=== PATIENT | female | born 1970 | race Caucasian/White ===

== ENCOUNTER 2020-06-17 09:08 | Emergency (ER) | payer SELFPAY ==
--- NOTE | ~2020-06-17 | XR_ITS ---
EXAMINATION: XR finger 3rd LT min 2V INDICATION: Left third finger pain TECHNIQUE: Four views of the left third finger are obtained COMPARISON: None available FINDINGS: There is no fracture, dislocation, or subluxation. The bones and joint spaces are normal. T here is soft tissue swelling of the finger. IMPRESSION: 1. Soft tissue swelling without acute osseous abnormality. Reviewed, dictated and finalized at location B.
[2020-06-17 09:50] VITALS: BP 166/91; PULSE 74; RESP 18; TEMP 38.1; O2SAT 99
--- NOTE | 2020-06-17 10:03 | ED.UPPEXIN ---
HPI - Extremity Injury (Upper) General Chief Complaint: Extremity Injury, Upper Stated Complaint: Extremity Injury, Upper Time Seen by Provider: 06/17/20 10:04 Source: patient and RN notes reviewed History of Present Illness HPI narrative: Patient is a 49-year-old female who presents the urgent care with complaints of swelling and bruising to the left middle finger. Patient states that she was trying to grab on a dog collar of a large lab, and got her finger stuck in a braided leather collar. Patient states that she is watching a friend's dog. Denies of any other injuries. Denies any dog bites. States that it happened just prior to arrival and she did not take anything for pain or use ice. No other acute complaints. Patient appears to be a little anxious but otherwise no acute distress noted. Patient aware of the plan of care. Some parts of this dictation were generated by voice recognition software and may contain typographical and/or grammatical inaccuracies. Related Data Home Medications Medication Instructions Recorded Confirmed albuterol sulfate INHALATION 06/17/20 buspirone mg 06/17/20 citalopram mg 06/17/20 Allergies Allergy/AdvReac Type Severity Reaction Status Date / Time iodine Allergy Unknown Hives Verified 06/17/20 09:29 lamotrigine Allergy Unknown Rash Verified 06/17/20 09:29 shellfish derived Allergy Unknown Anaphylactic Verified 06/17/20 09:29 Shock Contrast Media Allergy Mild Hives / Uncoded 06/17/20 09:29 Red Face Review of Systems Review of Systems: Narrative: CONSTITUTIONAL: Denies fever, chills, or sweats. EYES: Denies visual changes, redness, or discharge. ENT: Denies rhinorrhea, congestion, sore throat, or otalgia. CARDIOVASCULAR: Denies chest pain, palpitations, or edema. RESPIRATORY: Denies cough or dyspnea. GASTROINTESTINAL: Denies abdominal pain, nausea, vomiting, or diarrhea. GENITOURINARY: Denies dysuria or hematuria. SKIN: Denies rash or itching. MUSCULOSKELETAL: Reports of painful bruising and swelling to the left middle digit NEUROLOGIC: Denies headache, numbness, or weakness. All other systems reviewed are negative, except as documented in HPI. [facility] Family History Family History (Updated 05/09/17 @ 16:42 by DOCTOR UNKNOWN) Father Diabetes mellitus Mother Family history of lung cancer Social History Social History Smoking status: Current every day smoker Alcohol intake: current Comments At the time of my signature, I reviewed and agree with the nursing past medical, surgical, social, and family history. There is no relevant family history pertinent to the patient complaint. Exam Narrative: Exam Narrative: GENERAL: This is a well-nourished, well-developed patient, in no apparent distress. HEAD: normocephalic, atraumatic. EYES: PERRL. Sclera clear/white. Vision is grossly intact. EARS: External ears normal NOSE: External nose normal with no obvious nasal discharge, nares without redness, no rhinorrhea. THROAT: Mucous membranes moist NECK: Neck supple SKIN: See extremities. Warm, intact with no suspicious lesions or rash, good texture and turgor. NEURO: awake, alert, and oriented to person, place and time. There were no obvious focal neurologic abnormalities. EXTREMITIES: Moderate edema and ecchymosis noted between the MCP and the PIP of the left middle digit. Moderate tenderness to the affected area. Positive strong radial pulse left upper extremity with capillary refill less than 2 seconds Course Vital Signs Vital signs: Vital Signs Temperature 100.5 F H 06/17/20 09:50 Pulse Rate 74 06/17/20 09:50 Respiratory Rate 18 06/17/20 09:50 Blood Pressure 166/91 H 06/17/20 09:50 Pulse Oximetry 99 06/17/20 09:50 Temperature 100.5 F H 06/17/20 09:50 Pulse Rate 74 06/17/20 09:50 Respiratory Rate 18 06/17/20 09:50 Blood Pressure 166/91 H 06/17/20 09:50 Pulse Oximetry 99 06/17/20 09:50 Reviewed-patient is informed that
== END 2020-06-17 10:25 | disposition home or self-care (01) ==
PROVIDERS: Emergency Provider Nurse Practitioner Family; PCP Internal Medicine
DX: S69.92XA Unspecified injury of left wrist, hand and finger(s), initial encounter (principal); X58.XXXA Exposure to other specified factors, initial encounter; F17.200 Nicotine dependence, unspecified, uncomplicated; J45.909 Unspecified asthma, uncomplicated; K21.9 Gastro-esophageal reflux disease without esophagitis; F41.9 Anxiety disorder, unspecified; F32.9 Major depressive disorder, single episode, unspecified; E28.2 Polycystic ovarian syndrome
CPT/HCPCS: 29130; 73140; 99213; G0463

== ENCOUNTER 2021-01-31 09:29 | Emergency (ER) | payer OTHER, SELFPAY ==
[2021-01-31 09:36] VITALS: BP 157/92; PULSE 89; RESP 18; TEMP 36.4; O2SAT 96
--- NOTE | 2021-01-31 11:15 | ED.URI ---
HPI - URI/Sore Throat General Chief Complaint: Upper Respiratory Infection Stated Complaint: Sinus infection Time Seen by Provider: 01/31/21 11:04 Source: patient and RN notes reviewed Mode of arrival: ambulatory Limitations: no limitations History of Present Illness HPI Narrative: Patient presents today complaining of a 5-day history of sinus pressure, bilateral ear pressure, subjective fever. States her sinus pressure is such that her teeth are hurting severely. Last night when she was blowing her nose she felt a severe popping in her left ear and now she hears a whistling or gurgling sound when she blows her nose. She has been taking Sudafed, DayQuil, NyQuil, [place] cold and flu without relief. History of allergy induced asthma MD elicited complaint: nasal congestion and sinus pain Related Data Home Medications Medication Instructions Recorded Confirmed buspirone mg 06/17/20 citalopram mg 06/17/20 losartan-hydrochlorothiazide tablet 01/31/21 Allergies Allergy/AdvReac Type Severity Reaction Status Date / Time iodine Allergy Unknown Hives Verified 06/17/20 09:29 lamotrigine Allergy Unknown Rash Verified 06/17/20 09:29 shellfish derived Allergy Unknown Anaphylactic Verified 06/17/20 09:29 Shock Contrast Media Allergy Mild Hives / Uncoded 06/17/20 09:29 Red Face Review of Systems Review of Systems: CONSTITUTIONAL: Denies body aches, chills, or sweats.+ Subjective fever EYES: Denies visual changes, redness, or discharge. ENT: Denies rhinorrhea, sore throat. + Bilateral ear pressure, left greater than right; congestion, sinus pressure CARDIOVASCULAR: Denies chest pain, palpitations, or edema. RESPIRATORY: Denies cough or dyspnea. GASTROINTESTINAL: Denies abdominal pain, nausea, vomiting, or diarrhea. GENITOURINARY: Denies dysuria or hematuria. SKIN: Denies rash, itching, or wounds. MUSCULOSKELETAL: Denies back pain, joint pain, or myalgia. NEUROLOGIC: Denies headache, numbness, tingling, or weakness. PSYCH: Denies depression or anxiety. 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 Please see nursing chart for further information. There is no relevant family history pertinent to the presenting complaint Exam Narrative: GENERAL: Ill-appearing, well-nourished, and in no acute distress. HEAD: Normocephalic, atraumatic. EYES: EOMI. No redness or drainage. Conjunctivae normal. ENT: Mucous membranes pink and moist. Nares congested. Maxillary sinus tenderness bilaterally. No rhinorrhea. Right TM normal. Left TM erythematous and bulging with purulent material. Throat normal. Uvula midline. NECK: Normal AROM. Supple. No lymphadenopathy. CHEST: No respiratory distress. End expiratory wheeze left upper and lower lobes. HEART: Regular rate and rhythm. No murmur appreciated. Normal peripheral pulses. EXTREMITIES: Normal range of motion. No edema. SKIN: Warm, dry, no rash. Capillary refill normal. Normal skin turgor. NEURO: No focal deficits. Alert and oriented x3. Gait steady. PSYCH: Normal affect. No signs of depression or anxiety. Course Vital Signs Vital signs: Vital Signs Temperature 97.6 F 01/31/21 09:36 Pulse Rate 89 01/31/21 09:36 Respiratory Rate 18 01/31/21 09:36 Blood Pressure 157/92 H 01/31/21 09:36 Pulse Oximetry 96 01/31/21 09:36 Temperature 97.6 F 01/31/21 09:36 Pulse Rate 89 01/31/21 09:36 Respiratory Rate 18 01/31/21 09:36 Blood Pressure 157/92 H 01/31/21 09:36 Pulse Oximetry 96 01/05
== END 2021-01-31 11:36 | disposition home or self-care (01) ==
PROVIDERS: Emergency Provider Nurse Practitioner; PCP Internal Medicine
DX: H66.002 Acute suppurative otitis media without spontaneous rupture of ear drum, left ear (principal); J01.00 Acute maxillary sinusitis, unspecified; J45.909 Unspecified asthma, uncomplicated; F17.200 Nicotine dependence, unspecified, uncomplicated
CPT/HCPCS: 99213; G0463

== ENCOUNTER 2022-09-20 19:07 | Emergency (ER) | payer OTHER, SELFPAY ==
--- NOTE | 2022-09-20 19:10 | ED.FEMALEGU ---
HPI - Female Genitourinary General Chief complaint: Urogenital-Female Stated complaint: Urinary Problem Time Seen by Provider: 09/20/22 19:26 Source: patient and RN notes reviewed Mode of arrival: ambulatory Limitations: no limitations History of Present Illness HPI Narrative: 51-year-old female presents with concern for dysuria, urinary incontinence, fever, chills, sweats. She reports she has taken Tylenol. She denies back pain. Reports suprapubic discomfort. Denies nausea or vomiting. MD elicited complaint: UTI Related Data Home Medications Medication Instructions Recorded Confirmed citalopram 40 mg tablet mg 06/17/20 losartan 50 mg-hydrochlorothiazide tablet 01/31/21 12.5 mg tablet celecoxib 200 mg capsule mg 09/20/22 hydrocodone 5 mg-acetaminophen 325 tablet 09/20/22 mg tablet pregabalin 75 mg capsule mg 09/20/22 Allergies Allergy/AdvReac Type Severity Reaction Status Date / Time iodine Allergy Unknown Hives Verified 06/17/20 09:29 lamotrigine Allergy Unknown Rash Verified 06/17/20 09:29 shellfish derived Allergy Unknown Anaphylactic Verified 06/17/20 09:29 Shock Contrast Media Allergy Mild Hives / Uncoded 06/17/20 09:29 Red Face Review of Systems Review of Systems: CONSTITUTIONAL: Reports malaise, chills, sweats, fever. CARDIOVASCULAR: Denies chest pain, palpitations, or edema. RESPIRATORY: Denies cough or dyspnea. GASTROINTESTINAL: Denies abdominal pain, nausea, vomiting, diarrhea GENITOURINARY: Reports dysuria, suprapubic pressure. Denies flank pain or hematuria. SKIN: Denies rash or itching. MUSCULOSKELETAL: Denies back pain or myalgia. All systems reviewed & are unremarkable except as noted in HPI and below PMFSH Past Medical History Medical History (Updated 09/20/22 @ 19:31 by Mariana Buck NP) Asthma Family History Family History (Updated 05/09/17 @ 16:42 by DOCTOR UNKNOWN) Father Diabetes mellitus Mother Family history of lung cancer Social History Social History Smoking status: Current every day smoker Alcohol intake: current Comments At time of signature, agree with nursing past medical, surgical, social and family history. There is no relevant family history pertinent to the presenting complaint Exam Narrative: GENERAL: Well-appearing, well-nourished, and in no acute distress. HEAD: Normocephalic. EYES: PERRLA, conjunctivae clear. NECK: Supple. No lymphadenopathy CHEST: Clear to auscultation. No respiratory distress. HEART: Regular rate and rhythm. ABDOMEN: Soft, mild suprapubic tenderness, nondistended, normal active bowel sounds, no palpable or pulsatile masses, no guarding. Right cVA tenderness SKIN: Warm, dry, no rash. NEURO: Alert and oriented x3. PSYCH: Normal mood and affect Course Course Emergency Course: Patient is aware of diagnosis, understands and agrees to treatment plan. Anticipatory guidance given. Patient agrees to follow-up as directed and is aware of reasons to seek care at the emergency department. Portions of this record may have been created with voice recognition software Level of Care: Express Care Visit Vital Signs Vital signs: Reviewed. MDM - Female Genitourinary MDM Narrative Medical decision making narrative: Exam findings and UA show no acute concerns or changes; patient is non-toxic appearing and is in no distress. Patient is appropriate for outpatient treatment and follow-up. Differential Diagnosis Differential diagnosis: Likely urinary tract infection and cystitis Critical Care Time Critical Care Time Critical Care Time: No Discharge Plan Discharge Clinical Impression: Urinary tract infection Patient Disposition: Home, Self-Care Condition: Stable Instructions: Antibiotic Form, Urinary Tract Infection in Women (ED) Additional Instructions: We will send a urine culture to the lab; if the culture identifies an organism that the prescribed antibiotic will not treat,
[2022-09-20 19:15] VITALS: BP 136/99; PULSE 90; RESP 18; TEMP 36.7; O2SAT 97
== END 2022-09-20 19:37 | disposition home or self-care (01) ==
PROVIDERS: Emergency Provider Nurse Practitioner; PCP Internal Medicine
DX: N39.0 Urinary tract infection, site not specified (principal); J45.909 Unspecified asthma, uncomplicated
CPT/HCPCS: 81003; 87077; 87086; 87186; 99213; G0463

== ENCOUNTER 2023-06-07 13:10 | Emergency (ER) | payer OTHER, SELFPAY ==
--- NOTE | ~2023-06-07 | XR_ITS ---
EXAMINATION: XR finger 2nd LT min 2V DATE: 06/07/2023 13:47 INDICATION: Left hand second digit injury and pain and swelling. TECHNIQUE: 4 views of left hand second digit were obtained. COMPARISON: None. FINDINGS: Bone alignment is normal. No fracture. Joint spaces are normal. IMPRESSION: 1. No fracture. Reviewed, dictated and finalized at location A. IMPRESSION: 1. No fracture.
[2023-06-07 13:20] VITALS: BP 140/91; PULSE 91; RESP 16; TEMP 37.5; O2SAT 100
--- NOTE | 2023-06-07 13:22 | ED.UPPEXIN ---
HPI - Extremity Injury (Upper) General Chief Complaint: Extremity Injury, Upper Stated Complaint: Left Hand Injury Source: patient Mode of arrival: ambulatory Limitations: no limitations History of Present Illness HPI narrative: 52 y/o female presented for c/o left index finger pain after injury today at work. States it was smashed in a machine then pulled the finger out at 0930. Applied ice but continues to report pain and swelling, decreased ROM due to pain. Has not taken anything for pain. Denies deformity. Related Data Home Medications Medication Instructions Recorded Confirmed citalopram 40 mg tablet 40 mg PO DAILY 06/17/20 06/07/23 bupropion HCl 150 mg 24 hr tablet, 150 mg PO DAILY 06/07/23 06/07/23 extended release losartan 100 1 tablet PO DAILY 06/07/23 06/07/23 mg-hydrochlorothiazide 12.5 mg tablet pregabalin 150 mg capsule 150 mg PO BID 06/07/23 06/07/23 spironolactone 25 mg tablet 25 mg PO DAILY 06/07/23 06/07/23 Allergies Allergy/AdvReac Type Severity Reaction Status Date / Time iodine Allergy Unknown Hives Verified 06/07/23 13:40 iohexol Allergy Unknown Rash Verified 06/07/23 13:46 [From contrast - CT, X-RAY] lamotrigine Allergy Unknown Rash Verified 06/07/23 13:40 shellfish derived Allergy Unknown Anaphylactic Verified 06/07/23 13:40 Shock Review of Systems Review of Systems: CONSTITUTIONAL: Denies body aches, fever, chills CARDIOVASCULAR: Denies chest pain, palpitations, or edema. RESPIRATORY: Denies cough or dyspnea. SKIN: reports abrasion to left index MUSCULOSKELETAL: reports pain and swelling to left index Denies back pain, joint pain, or myalgia. NEUROLOGIC: Denies headache, numbness, tingling, or weakness. All systems reviewed & are unremarkable except as noted in HPI and below PMFSH Past Medical History Medical History Asthma Family History Family History Father Diabetes mellitus Mother Family history of lung cancer Social History Social History Smoking status: Current every day smoker Alcohol intake: current Comments At time of signature, I have reviewed and agree with nursing past medical, surgical, social and family history unless otherwise noted. Please see nursing chart for further information. There is no relevant family history pertinent to the presenting complaint Exam Narrative: GENERAL: Well-appearing CHEST: Speaks in full sentences. No respiratory distress. HEART: Regular rate and rhythm. Normal and equal peripheral pulses. EXTREMITIES: Left 3rd digit distal phalanx with superficial abrasion no nail involvement. Left 2nd digit with moderate swelling and decreased ROM due to swelling. Distal phalanx with superficial abrasions. 2nd digit has normal strength and sensation, No ecchymosis, No obvious deformity; pulse palpable and equal bilaterally, skin warm, dry, pink. Capillary refill less than 3 seconds. Involuntary tremor. SKIN: Warm, dry NEURO: Alert and oriented x3. PSYCH: Normal mood and affect Course Course Emergency Course: Patient is aware of diagnosis, understands and agrees to treatment plan. Anticipatory guidance given. Patient agrees to follow-up as directed and is aware of reasons to seek care at the emergency department. Portions of this record may have been created with voice recognition software Level of Care: Express Care Visit Vital Signs Vital signs: Vital Signs Temperature 99.5 F 06/07/23 13:20 Pulse Rate 91 06/07/23 13:20 Respiratory Rate 16 06/07/23 13:20 Blood Pressure 140/91 H 06/07/23 13:20 Pulse Oximetry 100 06/07/23 13:20 Oxygen Delivery Room Air 06/07/23 13:20 Temperature 99.5 F 06/07/23 13:20 Pulse Rate 91 06/07/23 13:20 Respiratory Rate 16 06/07/23 13:20 Blood Pressure 140/91 H 06/07/23 13:20
== END 2023-06-07 14:15 | disposition home or self-care (01) ==
PROVIDERS: Emergency Provider Nurse Practitioner Family; PCP Internal Medicine
DX: S63.611A Unspecified sprain of left index finger, initial encounter (principal); W31.9XXA Contact with unspecified machinery, initial encounter; J45.909 Unspecified asthma, uncomplicated; F17.200 Nicotine dependence, unspecified, uncomplicated
CPT/HCPCS: 29130; 73140; 99213; G0463

== ENCOUNTER 2023-06-15 12:56 | Emergency (ER) | payer OTHER, SELFPAY ==
--- NOTE | 2023-06-15 13:05 | ED.GENADULT ---
HPI - General Adult General Chief complaint: Upper Respiratory Infection Stated complaint: sob Source: patient, RN notes reviewed and old records reviewed Mode of arrival: ambulatory Limitations: no limitations History of Present Illness HPI narrative: 52-year-old female presents to [facility] with complaints cough, shortness of breath, congestion, wheezing that started 4-5 days ago. Patient states has a history of asthma and has been using her albuterol inhaler at home daily with no relief. Patient denies taking other medications for asthma. Patient denies feeling sick, fever, myalgia, sore throat. Related Data Home Medications Medication Instructions Recorded Confirmed citalopram 40 mg tablet 40 mg PO DAILY 06/17/20 06/15/23 bupropion HCl 150 mg 24 hr tablet, 150 mg PO DAILY 06/07/23 06/15/23 extended release losartan 100 1 tablet PO DAILY 06/07/23 06/15/23 mg-hydrochlorothiazide 12.5 mg tablet pregabalin 150 mg capsule 150 mg PO BID 06/07/23 06/15/23 spironolactone 25 mg tablet 25 mg PO DAILY 06/07/23 06/15/23 Allergies Allergy/AdvReac Type Severity Reaction Status Date / Time iodine Allergy Unknown Hives Verified 06/15/23 13:40 iohexol Allergy Unknown Rash Verified 06/15/23 13:40 [From contrast - CT, X-RAY] lamotrigine Allergy Unknown Rash Verified 06/15/23 13:40 shellfish derived Allergy Unknown Anaphylactic Verified 06/15/23 13:40 Shock Review of Systems Constitutional: Constitutional: Reports no additional constitutional complaints, Denies body ache(s), Denies chills, Denies fatigue, Denies fever(s) and Denies headache(s) Eyes: Eyes: Reports no additional eye complaints and Denies blurry vision ENT: Reports system reviewed and no additional complaints, except as documented, Denies vertigo, Denies dizziness, Denies ear discharge, Denies otalgia, Denies facial pain, Denies headache(s), Denies nasal congestion, Reports nasal discharge, Reports post nasal drip, Denies sinus pain, Denies sinus pressure and Denies sore throat Cardiovascular: Cardiovascular: Reports no additional cardiovascular complaints, Denies chest pain, Denies chest pain at rest, Denies rapid heart rate and Reports dyspnea Respiratory: Respiratory: Reports no additional respiratory complaints, Denies chest congestion, Reports cough, Denies pain on inspiration, Denies pain with cough, Reports dyspnea and Reports wheezing Gastrointestinal: Gastrointestinal: Denies abdominal pain, Denies diarrhea, Denies nausea and Denies vomiting Integumentary/Breasts: Skin/Breast: Denies rash Neurologic: Reports system reviewed and no additional complaints, except as documented, Denies vertigo, Denies dizziness and Denies headache(s) Endocrine: Endocrine: Denies fatigue PMFSH Past Medical History Medical History Asthma Family History Family History Father Diabetes mellitus Mother Family history of lung cancer Social History Social History Smoking status: Current every day smoker Alcohol intake: current Comments At the time of my signature, I reviewed and agree with the nursing past medical, surgical, social, and family history. There is no relevant family history pertinent to the patient complaint. Exam Const: General: cooperative, healthy appearing, no acute distress and well nourished Nutritional Appearance: well nourished Orientation/consciousness: patient oriented x3 Limitations: no limitations HENMT: Head: normal to inspection and normocephalic Ears: external ears normal Face/Nose/Sinus: normal facial exam Face and sinus: normal facial exam Mouth: Yes Normal oral and palatal mucosa present, Yes oropharynx normal and Yes moist mucous membranes Eyes: General: appearance normal, both eyes and all related structures Sclera: sclerae normal Pupils: Eq
[2023-06-15 13:06] VITALS: BP 151/73; PULSE 100; RESP 28; TEMP 36.6; O2SAT 100
[2023-06-15] MEDS: IPRATROPIUM BR 0.02% INH SOLN 0.5 MG/2.5 ML VIAL INHALATION (13:10)
[2023-06-15] MEDS: ALBUTEROL SULFATE NEB 2.5 MG/3 ML INH INHALATION (13:11)
[2023-06-15 13:45] VITALS: PULSE 86; RESP 20; O2SAT 98
== END 2023-06-15 14:00 | disposition home or self-care (01) ==
PROVIDERS: Emergency Provider Registered Nurse; PCP Internal Medicine
DX: J45.20 Mild intermittent asthma, uncomplicated (principal); F17.200 Nicotine dependence, unspecified, uncomplicated
CPT/HCPCS: 94640; 99213; G0463

== ENCOUNTER 2023-07-06 09:40 | Emergency (ER) | payer OTHER, MEDICAID, SELFPAY ==
[2023-07-06 09:59] VITALS: BP 129/71; PULSE 68; RESP 14; TEMP 36.4; O2SAT 98
--- NOTE | 2023-07-06 10:13 | ED.EAR ---
HPI - Ear Problem General Chief complaint: Ear Stated complaint: Right Ear Pain Time Seen by Provider: 07/06/23 10:12 Source: patient, RN notes reviewed and old records reviewed Mode of arrival: ambulatory Limitations: no limitations History of Present Illness HPI Narrative: 52-year-old female to [facility] for acute right ear pain that began yesterday. Patient states that she was cleaning her ears after a shower and accidentally jammed her right TM with a Q-tip. Patient reports acute onset of pain. Patient denies any drainage, mastoid tenderness, fever. Patient endorses seasonal allergies, denies other pertinent medical history. Patient able to tolerate fluids by mouth. No acute distress. Related Data Home Medications Medication Instructions Recorded Confirmed citalopram 40 mg tablet 40 mg PO DAILY 06/17/20 07/06/23 bupropion HCl 150 mg 24 hr tablet, 150 mg PO DAILY 06/07/23 07/06/23 extended release losartan 100 1 tablet PO DAILY 06/07/23 07/06/23 mg-hydrochlorothiazide 12.5 mg tablet pregabalin 150 mg capsule 150 mg PO BID 06/07/23 07/06/23 spironolactone 25 mg tablet 25 mg PO DAILY 06/07/23 07/06/23 Allergies Allergy/AdvReac Type Severity Reaction Status Date / Time iodine Allergy Unknown Hives Verified 07/06/23 10:19 iohexol Allergy Unknown Rash Verified 07/06/23 10:19 [From contrast - CT, X-RAY] lamotrigine Allergy Unknown Rash Verified 07/06/23 10:19 shellfish derived Allergy Unknown Anaphylactic Verified 07/06/23 10:19 Shock Review of Systems Review of Systems: All systems reviewed & are unremarkable except as noted in HPI and below Constitutional: Constitutional: Reports as per HPI and Denies fever(s) Eyes: Eyes: Reports no additional eye complaints ENT: Reports as per HPI and Reports otalgia ( Right) Cardiovascular: Cardiovascular: Reports no additional cardiovascular complaints, Denies chest pain and Denies dyspnea Respiratory: Respiratory: Reports no additional respiratory complaints, Denies cough and Denies dyspnea Musculoskeletal: Musculoskeletal: Reports no additional musculoskeletal complaints Neurologic: Reports system reviewed and no additional complaints, except as documented Psychiatric: Psychiatric: Reports no additional psychiatric complaints PMFSH Past Medical History Medical History Asthma Family History Family History Father Diabetes mellitus Mother Family history of lung cancer Social History Social History Smoking status: Current every day smoker Alcohol intake: current Comments At the time of my signature, I reviewed and agree with the nursing past medical, surgical, social, and family history. There is no relevant family history pertinent to the patient complaint. Exam Const: General: cooperative, healthy appearing, comfortable, no acute distress, alert and well nourished Nutritional Appearance: well nourished Orientation/consciousness: patient oriented x3 Limitations: no limitations HENMT: Head: normal to inspection Ears: external ears normal and TM abnormal perforated without discharge; without bloody discharge, without clear discharge and without purulent discharge Face/Nose/Sinus: Normal external nose present, Normal nares present, normal facial exam, No erythema and No edema Face and sinus: normal facial exam, no erythema and no edema Mouth: Yes Normal oral and palatal mucosa present Eyes: General: appearance normal, both eyes and all related structures Neck: Neck: normal visual inspection, full ROM and no meningeal signs Lymphatic: no lymphadenopathy noted and no lymphedema noted Chest: Chest palpation & inspection: normal inspection of the chest Resp: Effort & Inspection: normal respiratory effort and able to speak in complete sentences Auscul
== END 2023-07-06 10:45 | disposition home or self-care (01) ==
PROVIDERS: Emergency Provider Nurse Practitioner Family; PCP Internal Medicine
DX: H72.91 Unspecified perforation of tympanic membrane, right ear (principal); F17.200 Nicotine dependence, unspecified, uncomplicated; J45.909 Unspecified asthma, uncomplicated
CPT/HCPCS: 99211; G0463

== ENCOUNTER 2023-12-08 11:18 | Emergency (ER) | payer SELFPAY ==
--- NOTE | ~2023-12-08 | XR_ITS ---
EXAMINATION: XR foot RT min 3V DATE: 12/08/2023 12:04 INDICATION: Right foot injury TECHNIQUE: Dorsoplantar, two oblique and lateral views of the right foot were obtained. COMPARISON: None. FINDINGS: Alignment is normal. No fracture. Minimal to mild osteoarthritis at the first metatarsophalangeal and a few tarsometatarsal and interphalangeal joints. Small Achilles and plantar calcaneal spurs. Soft t issues are unremarkable. IMPRESSION: 1. 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 No acute osseous abnor mality. Reviewed, dictated and finalized at location A. IMPRESSION: 1. 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 No acute osseous abnormality.
[2023-12-08 11:29] VITALS: BP 144/85; PULSE 74; RESP 22; TEMP 36.6; O2SAT 99
--- NOTE | 2023-12-08 12:21 | ED.LOWEXIN ---
HPI - Extremity Injury (Lower) General Chief Complaint: Extremity Injury, Lower Stated Complaint: Right Foot Injury Source: patient Mode of arrival: ambulatory Limitations: no limitations History of Present Illness HPI Narrative: 53-year-old female presented for complaint of right foot pain and swelling following an injury 6 days ago. She states a desk fell out of her car on to the right foot. Since then she had been able to walk without difficulty. However yesterday she was kneeling with her feet underneath her, when she went to stand she felt a grinding sensation in the right foot. Since then she has had more bruising, swelling, and pain to the right foot. She is taking Tylenol and ibuprofen. She denies deformity. Related Data Home Medications Medication Instructions Recorded Confirmed citalopram 40 mg tablet 40 mg PO DAILY 06/17/20 12/08/23 bupropion HCl 150 mg 24 hr tablet, 150 mg PO DAILY 06/07/23 12/08/23 extended release losartan 100 1 tablet PO DAILY 06/07/23 12/08/23 mg-hydrochlorothiazide 12.5 mg tablet pregabalin 150 mg capsule 150 mg PO BID 06/07/23 12/08/23 albuterol sulfate 90 mcg/actuation 90 mcg inhalation DIRECTED 12/08/23 12/08/23 aerosol inhaler Allergies Allergy/AdvReac Type Severity Reaction Status Date / Time iodine Allergy Unknown Hives Verified 07/06/23 10:19 iohexol Allergy Unknown Rash Verified 07/06/23 10:19 [From contrast - CT, X-RAY] lamotrigine Allergy Unknown Rash Verified 07/06/23 10:19 shellfish derived Allergy Unknown Anaphylactic Verified 07/06/23 10:19 Shock Review of Systems Review of Systems: CONSTITUTIONAL: Denies body aches, fever, chills CARDIOVASCULAR: Denies chest pain, palpitations, or edema. RESPIRATORY: Denies cough or dyspnea. GASTROINTESTINAL: Denies abdominal pain, nausea, vomiting, or diarrhea. SKIN: Denies rash, itching, or wounds. MUSCULOSKELETAL: reports right foot pain NEUROLOGIC: Denies headache, numbness, tingling, or weakness. All systems reviewed & are unremarkable except as noted in HPI and below PMFSH Past Medical History Medical History Asthma Family History Family History Father Diabetes mellitus Mother Family history of lung cancer Social History Social History Smoking status: Current every day smoker Alcohol intake: current Comments At time of signature, I have reviewed and agree with nursing past medical, surgical, social and family history unless otherwise noted. Please see nursing chart for further information. There is no relevant family history pertinent to the presenting complaint Exam Narrative: GENERAL: Well-appearing CHEST: Speaks in full sentences. No respiratory distress. HEART: Regular rate and rhythm. Normal and equal peripheral pulses. EXTREMITIES: right foot has normal strength and sensation, decreased range of motion with flexion of foot due to pain with movement. mild swelling and ecchymosis, point tenderness to dorsum of right foot. No open wounds, or obvious deformity; alignment normal, pulse palpable and equal bilaterally, skin warm, dry, pink. Capillary refill less than 3 seconds. SKIN: Warm, dry NEURO: Alert and oriented x3. PSYCH: Normal mood and affect Course Course Emergency Course: Patient is aware of diagnosis, understands and agrees to treatment plan. Anticipatory guidance given. Patient agrees to follow-up as directed and is aware of reasons to seek care at the emergency department. Portions of this record may have been created with voice recognition software Level of Care: Express Care Visit Vital Signs Vital signs: Vital Signs Temperature 97.8 F 12/08/23 11:29 Pulse Rate 74 12/08/23 11:29 Respiratory Rate 22 H 12/08/23 11:29 Blood Pressure 144/85 H 12/08/23 11:29
== END 2023-12-08 12:37 | disposition home or self-care (01) ==
PROVIDERS: Emergency Provider Nurse Practitioner Family; PCP Internal Medicine
DX: S90.31XA Contusion of right foot, initial encounter (principal); W20.8XXA Other cause of strike by thrown, projected or falling object, initial encounter; F17.200 Nicotine dependence, unspecified, uncomplicated; J45.909 Unspecified asthma, uncomplicated
CPT/HCPCS: 73630; 99213; G0463

== ENCOUNTER 2024-06-24 17:42 | Emergency (ER) | payer SELFPAY ==
--- NOTE | 2024-06-24 17:49 | ED_ITS ---
HPI - URI/Sore Throat General Chief Complaint: Upper Respiratory Infection Stated Complaint: Sore Throat Time Seen by Provider: 06/24/24 17:50 Source: patient, RN notes reviewed and old records reviewed Mode of arrival: ambulatory Limitations: no limitations History of Present Illness HPI Narrative: 53 year old female who presents to [facility] with complaints of sore throat, headache, pain under her eyes ,cough, nasal congestion for the past 2 days. Patient reports that she has not had any fevers, chills or any body aches. Patient reports that she does have allergy induced asthma and has used her inhaler and also has been taking DayQuil for her symptoms. MD elicited complaint: cough, sore throat, rhinorrhea, nasal congestion, sinus pain (under eyes) and other (headache) Onset (ago): day(s) (2) Pain scale (0-10): 6 Description of mucous: clear Able to tolerate fluids by mouth: Yes Exacerbating factors: swallowing Treatments prior to arrival: other (DayQuil and has used her inhaler) Related Data Home Medications ?Medication ?Instructions ?Recorded ?Confirmed ?Last Taken ?Type citalopram 40 mg tablet 40 mg PO DAILY 06/17/20 12/08/23 Unknown History bupropion HCl 150 mg 24 hr tablet, 150 mg PO DAILY 06/07/23 12/08/23 Unknown History extended release losartan 100 1 tablet PO DAILY 06/07/23 12/08/23 Unknown History mg-hydrochlorothiazide 12.5 mg tablet Allergies Allergy/AdvReac Type Severity Reaction Status Date / Time iodine Allergy Unknown Hives Verified 06/24/24 18:02 iohexol (From contrast - CT, Allergy Unknown Rash Verified 06/24/24 18:02 X-RAY) lamotrigine Allergy Unknown Rash Verified 06/24/24 18:02 shellfish derived Allergy Unknown Anaphylactic Verified 06/24/24 18:02 Shock Review of Systems Review of Systems: CONSTITUTIONAL: Denies malaise, chills, sweats, or fever. EYES: Denies visual changes, redness, or discharge. ENT: Reports rhinorrhea, congestion, sinus pain, no otalgia and positive for sore throat. CARDIOVASCULAR: Denies chest pain, palpitations, or edema. RESPIRATORY: Reports cough.? Denies dyspnea. GASTROINTESTINAL: Denies abdominal pain, nausea, vomiting, diarrhea SKIN: Denies rash or itching. MUSCULOSKELETAL: Denies myalgia. NEUROLOGIC: Reports headache. All systems reviewed & are unremarkable except as noted in HPI and below PMFSH Past Medical History Medical History (Updated 06/25/24 @ 20:24 by Leilani Kowalski NP) Panic attack Anxiety and depression Hypertension Polycystic ovary syndrome Collapsed lung after hiatal hernia repair Asthma Surgical History Surgical History (Updated 06/25/24 @ 20:19 by Leilani Kowalski NP) Hx of arthroscopy of left knee meniscus repair History of repair of hiatal hernia Hx of spinal surgery L5-S1 with hardware Family History Family History Father Diabetes mellitus Mother Family history of lung cancer Social History Social History (Updated 06/25/24 @ 20:20 by Leilani Kowalski NP) Smoking status: Former smoker Alcohol intake: current Alcohol use details: social Substance use type: does not use Living arrangements: with family Gender identity (if verbalized by the patient): Female Comments At time of signature, agree with nursing past medical, surgical, social and family history. There is no relevant family history pertinent to the presenting complaint Exam Narrative: GENERAL: Well-appearing, well-nourished, and in no acute distress. HEAD: Normocephalic EYES: PERRLA, conjunctivae clear ENT: Nares clear, turbinates edematous and erythematous, clear discharge, sinus pressure and headache. Mucous membranes moist. TM pearly richey with dull light reflex bilaterally; no tragal tenderness. Oropharynx erythematous without lesions. Tonsils not enlarged and without exudate, no drooling, no hoarseness, no trismus, uvula midline.post nasal drainage NECK: Supple. No lymphadenopathy CHEST: scattered wheezes noted, breath sounds equal. +wheezing, no rhonchi, rales, or stridor. No respiratory distress, speaks in full sentences.cough noted SAO2 98% on room air HEART: Regular rate and rhythm. No murmur heard. SKIN: Warm, dry, no rash. NEURO: Alert and oriented x3. PSYCH: Normal mood and affect Course Course Emergency Course: Patient is aware of diagnosis, understands and agrees to treatment plan.? Anticipatory guidance given.? Patient agrees to follow-up as directed and is aware of reasons to seek care at the emergency department. Portions of this record may have been created with voice recognition software Level of Care: Express Care Visit Vital Signs Vital signs: Vital Signs Temperature 36.8 C 06/24/24 17:54 Pulse Rate 88 06/24/24 17:54 Respiratory Rate 20 06/24/24 17:54 Blood Pressure 155/88 H 06/24/24 17:54 Pulse Oximetry 98 06/24/24 17:54 Oxygen Delivery Room Air 06/24/24 17:54 Temperature 36.8 C 06/24/24 17:54 Pulse Rate 88 06/24/24 17:54 Respiratory Rate 20 06/24/24 17:54 Blood Pressure 155/88 H 06/24/24 17:54 Pulse Oximetry 98 06/24/24 17:54 Oxygen Delivery Room Air 06/24/24 17:54 Reviewed MDM - URI/Sore Throat MDM Narrative Medical decision making narrative: Differential diagnosis considered: Mcqueen virus, strep pharyngitis, allergic rhinitis, upper respiratory tract infection, sinusitis, rhinosinusitis, nasopharyngitis. viral pharyngitis, otitis media, otitis externa, pneumonia, bronchitis, viral cough syndrome, viral syndrome, and influenza.? Exam findings show no acute concerns or changes; patient is non-toxic appearing and is in no distress.? Patient is appropriate for outpatient treatment and follow-up. Differential Diagnosis Differential diagnosis: Likely upper respiratory infection, sinusitis, viral infection, bronchitis, pharyngitis and other (strep pharyngitis) Medical Records Attestation: I reviewed the patient's medical records. Lab Data Attestation: I reviewed the patient's lab results. Lab results narrative: strep screen negative, Labs: Lab Results 06/24/24 Range/Units 18:02 POC Grp A Strep Screen Negative (Negative) Critical Care Time Critical Care Time Critical Care Time: No Discharge Plan Discharge Clinical Impression: Bronchitis Pharyngitis Qualifiers: Pharyngitis/tonsillitis etiology: unspecified etiology Qualified Code(s): J02.9 - Acute pharyngitis, unspecified Patient Disposition: Home Condition: Stable Instructions: Antibiotic Form, Acute Bronchitis (ED) Additional Instructions: Increase fluids especially juices and water [id number] cough and cold medicine of your choice for your symptoms Zyrtec Claritin or Libra and include Coricidin brand decongestant Continue your inhaler/nebulizer as directed Steroids as directed--take with food heat to the face 20-30 minutes 4-6 times a day for pain Salt water gargles, throat lozenges or throat sprays as desired Antibiotic as directed--finished the medication If your symptoms persist, change or worsen significantly before you can contact your personal physician then please, without delay, go to the emergency department for further evaluation. Follow-up with PCP in 7-10 days or sooner if needed Follow up with PCP soon in regards to your blood pressure which is elevated above threshold for referral. Blood pressure above 120/80 may indicate pre- hypertension. Patient Language: [place]an Prescriptions: New prednisone 20 mg tablet 40 mg PO DAILY Qty: 10 0RF Rx Instructions: start in the morning azithromycin 250 mg tablet See Rx Instructions .ROUTE .COMPLEX Qty: 6 0RF Rx Instructions: For 250 mg dose pack: take 500 mg today (day 1), then 250 mg for 4 days (days 2-5) No Action bupropion HCl 150 mg tablet extended release 24 hr 150 mg PO DAILY losartan-hydrochlorothiazide 100-12.5 mg tablet 1 tablet PO DAILY citalopram 40 mg tablet 40 mg PO DAILY Follow-up/Referrals: Ellen Chavarria RN [Primary Care Provider] - Time of Disposition: 18:22 Quality [place] Coma Scale Eyes: Open Verbal: Oriented and Alert Motor: Follows Commands Geoffrey Coma Total Score: 15
[2024-06-24 17:54] VITALS: BP 155/88; PULSE 88; RESP 20; TEMP 36.8; O2SAT 98
[2024-06-24 18:15] LABS: EDSTREPNEGPOS1 Negative (Negative)
--- OUTSIDE RECORDS SUMMARY | 2024-06-24 18:21 | XMS_ITS | Clinical Summary ---
Author Organization [facility] Address [address] [place] [phone] Phone Care Team Providers Care Market President Name Role Phone JI SIGALAPARDEEP Primary Care Provider [phone] Reason for Visit and Chief Complaint RX ISSUE/REFILL Problems Includes: Problems addressed during this encounter and other active Problems All Visits Onset Date Resolved Date Provider Condition S tatus Depression Unknown JONELLE MOSES OIL RECOVERY UNIT OPERATOR-FPA, CONVEYOR MAN-BC Active Last Documented On 2 9:23AM ; [facility] Anxiety Disorder Nos Unknown JONELLE PATTERSONLP OIL RECOVERY UNIT OPERATOR-FPA, CONVEYOR MAN-BC Active Last Documented On 2 9:23AM ; [facility] Hyperlipidemia Unknown JONELLE MOSES OIL RECOVERY UNIT OPERATOR-F PA, CONVEYOR MAN-BC Active Last Documented On 2 9:23AM ; [facility] Essential Hypertension Unknown JONELLE Lopez KUL P OIL RECOVERY UNIT OPERATOR-FPA, CONVEYOR MAN-BC Active Last Documented On 2 9:22AM ; [facility] Plan of Treatment 5 day supply from surgeon - Last Documented On 02/21/2023 9:00AM ; [facility] Assessments Includes: Assessments from this encounter No Assessments Recorded Medical Equipment - Implanted Devices Includes: Current Devices No Medical Equipment Recorded Medications Includes: Medications discussed during this encounter and other current Medications Discontinued / Stopped on this date JONELLE MOSES OIL RECOVERY UNIT OPERATOR-FPA, CONVEYOR MAN-BC on 01/02/2023 HYDROcodone-Acetaminophen 5- 325 MG Oral Tablet Provider: JONELLE MOSES OIL RECOVERY UNIT OPERATOR-FPA, CONVEYOR MAN-BC 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, lumbar region Last Documented On 3 9:00AM By JONELLE CHINO ; [facility] Current Medications (continue as prescribed) Pregabalin 150 MG Oral Capsule 05/15/2023 Provider: MATTI WELCH Diagnosis: Radiculopathy, l umbar region TAKE 1 CAPSULE BY MOUTH TWICE DAILY Last Documented On 4 1:13PM By JONELLE CHINO ; [facility] HYDROcodone-Acetaminophen 5- 325 MG Oral Tablet 02/21/2023 Provider: MATTI PRESCOTT 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, lumbar region One tablet twice a day as ne eded for severe pain Last Documented On 3 9:13AM By JONELLE CHINO ; [facility] Methocarbamol 500 MG Oral Tablet 02/02/2023 Provider: MATTI PRESCOTT Diagnosis: Dorsalgia, unspe cified TAKE 1 TABLET BY MOUTH THREE TIMES DAILY NEEDED Last Documented On 3 11:05AM By JONELLE CHINO ; [facility] buPROPion HCl ER (XL) 150 MG Oral Tablet Extended Release 24 Hour 10/18/2022 Provider: Diagnosis: once a day Last Documented On 3 3:22PM By JONELLE CHINO ; [facility] Citalopram Hydrobromide 40 MG Oral Tablet 06/11/2021 Provider: DELTA SIGALA Diagnosis: Last Documented On 2 9:58AM By JONELLE CHION ; [facility] Albuterol Sulfate HFA 108 (9 0 Base) MCG/ACT Inhalation Aerosol Solution 06/11/2021 Provider: DELTA RAMSEY Diagnosis: Last Documented On 2 9:58AM By JONELLE CHINO ; [facility] Medications Administered Includes: Administered Medications from this encounter No Administered Medications Recorded Results Includes: Results discussed during this encounter No Results Recorded For Specified Dates History of Present Illness Includes: History of Present Illness from this encounter No History of Present Illness Recorded Social History Description Last Updated Tobacco non-user 06/11/2021 Last Documented On 3 4:28PM ; [facility] Difficulty walking 06/11/2021 Last Documented On 3 4:28PM ; [facility] Smoking Status Unknown Procedures and Surgical History Surgical History Last Updated No Pacemaker 06/11/2021 Last Documented On 3 4:28PM ; [facility] Surgical / procedural history Over 20 yr s ago 06/11/2021 Last Documented On 3 4:28PM ; [facility] Medical History Includes: Medical History addressed during this encounter Description Last Updated Surgical / procedural history L5-S1 Lumb ar Fusion 01/30/[address] Easton 02/03/2023 Last Documented On 3 4:28PM ; [facility] Denies a fear of falling. 07/08/2021 Last Documented On 3 4:28PM ; [facility] Has had no fall in the last 12 months. 0 07/08/2021 Last Documented On 3 4:28PM ; [facility] Currently wearing eyeglasses 06/11/2021 Last Documented On 3 4:28PM ; [facility] No Pain Pump 06/11/2021 Last Documented On 3 4:28PM ; [facility] No Spinal cord stimulator 06/11/2021 Last Documented On 3 4:28PM ; [facility] Physical therapy 06/11/2021 Last Documented On 3 4:28PM ; [facility] Please list all illnesses/co nditions you have been diagnosed with: Anxiety/panic attacks, high blood pressure, high colest 06/11/2021 Last Documented On 3 4:28PM ; [facility] Please list all surgeries: L eft Knee surgery for torn miniscus in 1998. hiatal hernia repair in October 2013 and again in June 2017 06/11/2021 Last Documented On 3 4:28PM ; [facility] Family History Includes: Family History addressed during this encounter Description Last Updated Family history of Arthritis 06/11/2021 Last Documented On 3 4:28PM ; [facility] Paternal history of reported family hist ory of seizures 06/11/2021 Last Documented On 3 4:28PM ; [facility] Review of Systems Includes: Review of Systems from this encounter No Review of Systems Recorded Mental Status Includes: Mental Status from this encounter No Mental Status Recorded Functional Status Includes: Functional Status from this encounter No Functional Status Recorded Physical Exam Includes: Physical Exam from this encounter No Physical Exam Recorded Allergies Includes: Active Allergies Substance Type Reaction Onset Date Resolved Date Statu s Shellfish Allergy 06/11/2021 Active Last Documented On 3 3:05PM ; [facility] Meloxicam Allergy 06/11/2021 Active Last Documented On 3 3:05PM ; [facility] Lamotrigine Allergy 06/11/2021 Active Last Documented On 3 3:05PM ; [facility] LaMICtal Allergy Skin Rashes / Eruption of skin 2 Active Last Documented On 3 3:05PM ; [facility] Iodine Allergy Skin Rashes / Eruption of skin 2 Active Last Documented On 3 3:05PM ; [facility] Encounters Encounter Provider Location Date Check-In Time Check-Out Time Diagnosis RX ISSUE/REFILL JONELLE MOSES OIL RECOVERY UNIT OPERATOR-FPA, CONVEYOR MAN-BC 02/20/2023 4:28PM 11:59PM Insurance Includes: Active Insurance Policies Plan Name Member ID Group # Subscriber Relationship Effect jad Dates 1 - [facility] [id number] JOHNATHON FLORES Se lf Clinical Notes Includes: Clinical Notes from this encounter * Progress note Date Encounter Last Documented by 02/20/2023 RX ISSUE/REFILL Last documented on 02/21/2023; 9:00 AM, JONELLE MOSES OIL RECOVERY UNIT OPERATOR-FPA, CONVEYOR MAN-BC; [facility] Active Problems & Conditions - Anxiety Disorder Nos - Depression - Essential Hypertension - Hyperlipidemia Chief Complaint Phone Call - Chief Concern: Reason for call: Refill Patient is requesting a refill on Hydrocodone ~How is medication taken? BID ~How many are left? 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 Current Medication - Albuterol Sulfate HFA 108 (90 Base) MCG/ACT Inhalation Aerosol Solution 0 days, 0 refills - buPROPion HCl ER (XL) 150 MG Oral Tablet Extended Release 24 Hour once a day, 1 days, 0 refills - Celecoxib 200 MG Oral Capsule TAKE 1 CAPSULE BY MOUTH EVERY MORNING WITH FOOD, 30 days, 0 refills - Citalopram Hydrobromide 40 MG Oral Tablet 0 days, 0 refills - Methocarbamol 500 MG Oral Tablet TAKE 1 TABLET BY MOUTH THREE TIMES DAILY NEEDED, 30 days, 0 refills - oxyCODONE HCl 5 MG Oral Tablet 7 days, 0 refills - Pregabalin 150 MG Oral Capsule TAKE 1 CAPSULE BY MOUTH TWICE DAILY, 30 days, 1 refills Past Medical/Surgical History Reported: Physical therapy, Please list all illnesses/conditions you have been diagnosed with: Anxiety/panic attacks, high blood pressure, high colest, and Please list all surgeries: Left Knee surgery for torn miniscus in 1998. hiatal hernia repair in October 2013 and again in June 2017. Medical: Currently wearing eyeglasses. No Spinal cord stimulator and no Pain Pump. Surgical / Procedural: Surgical / procedural history L5-S1 Lumbar Fusion 01/30/[address] Easton and surgical / procedural history Over 20 yrs ago. No Pacemaker. Physical Trauma: Has had no fall in the last 12 months. and Denies a fear of falling. Social History Difficulty walking. Tobacco use: Tobacco non-user. Allergies - Iodine Reaction: Skin Rashes / Eruption of skin - LaMICtal Reaction: Skin Rashes / Eruption of skin - Lamotrigine - Meloxicam - Shellfish Family History Arthritis Paternal: Reported family history of seizures Plan StartCited - Other PHY ORDER/COMMENT It looks like her surgeon gave her some on 02/07 can we find out from pharmacy how many she got? EndCited StartCited - Spondylosis w/o myelopathy or radiculopathy, lumbar region HYDROcodone-Acetaminophen 5-325 MG tablet One tablet twice a day as needed for severe pain, 30 days, 0 refills EndCited 5 day supply from surgeon Health Reminders - Assess Need for CT Lung Screen satisfied 02/20/2023. - Assess Tobacco Use satisfied 02/20/2023.
--- OUTSIDE RECORDS SUMMARY | 2024-06-24 18:21 | XMS_ITS | Clinical Summary ---
Author Organization [facility] Address [address] [place] [id number] Phone Care Team Providers Care Database Programmer Analyst Name Role Phone JI SIGALAPARDEEP Primary Care Provider [phone] Reason for Visit and Chief Complaint RX ISSUE/REFILL Problems Includes: Problems addressed during this encounter and other active Problems All Visits Onset Date Resolved Date Provider Condition S tatus Depression Unknown JONELLE MOSES LEAD SHIPPER-FPA, ART CONSERVATOR-BC Active Last Documented On 2 9:23AM ; [facility] Anxiety Disorder Nos Unknown JONELLE MOSES LEAD SHIPPER-FPA, ART CONSERVATOR-BC Active Last Documented On 2 9:23AM ; [facility] Hyperlipidemia Unknown JONELLE MOSES LEAD SHIPPER-F PA, ART CONSERVATOR-BC Active Last Documented On 2 9:23AM ; [facility] Essential Hypertension Unknown JONELLE PATTERSONL P LEAD SHIPPER-FPA, ART CONSERVATOR-BC Active Last Documented On 2 9:22AM ; [facility] Plan of Treatment No Plan of Treatment Recorded Assessments Includes: Assessments from this encounter No Assessments Recorded Medical Equipment - Implanted Devices Includes: Current Devices No Medical Equipment Recorded Medications Includes: Medications discussed during this encounter and other current Medications Discontinued / Stopped on this date JONELLE MOSES LEAD SHIPPER-FPKaiden ART CONSERVATOR-BC on 12/01/2022 HYDROcodone-Acetaminophen 5- 325 MG Oral Tablet Provider: JONELLE GORDON ART CONSERVATOR-BC 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, lumbar region Last Documented On 3 3:08PM By JONELLE ANGEL-BC ; [facility] New / Renewed during this visit MATTI PRSECOTT on 01/02/2023 HYDROcodone-Acetaminophen 5- 325 MG Oral Tablet Provider: MATTI PRESCOTT 30 day supply: 60 tablet, 0 refills 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, lumbar region One tablet twice a day as ne eded for severe pain Pharmacy: [facility] ([facility] - [facility] [place] [address] [facility], [phone] - Last Documented On 3 9:00AM By JONELLE CHINO ; [facility] Current Medications (continue as prescribed) Pregabalin 150 MG Oral Capsule 05/15/2023 Provider: MATTI WELCH Diagnosis: Radiculopathy, l umbar region TAKE 1 CAPSULE BY MOUTH TWICE DAILY Last Documented On 4 1:13PM By JONELLE CHINO ; [facility] HYDROcodone-Acetaminophen 5- 325 MG Oral Tablet 02/21/2023 Provider: MATTI PRESCOTT 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, lumbar region One tablet twice a day as ne eded for severe pain Last Documented On 3 9:13AM By JONELLE CHINO ; [facility] Methocarbamol 500 MG Oral Tablet 02/02/2023 Provider: MATTI PRESCOTT Diagnosis: Dorsalgia, unspe cified TAKE 1 TABLET BY MOUTH THREE TIMES DAILY NEEDED Last Documented On 3 11:05AM By JONELLE CHINO ; [facility] buPROPion HCl ER (XL) 150 MG Oral Tablet Extended Release 24 Hour 10/18/2022 Provider: Diagnosis: once a day Last Documented On 3 3:22PM By JONELLE CHINO ; [facility] Citalopram Hydrobromide 40 MG Oral Tablet 06/11/2021 Provider: DELTA SIGALA Diagnosis: Last Documented On 2 9:58AM By JONELLE CHINO ; [facility] Albuterol Sulfate HFA 108 (9 0 Base) MCG/ACT Inhalation Aerosol Solution 06/11/2021 Provider: DELTA RAMSEY Diagnosis: Last Documented On 2 9:58AM By JONELLE CHINO ; [facility] Medications Administered Includes: Administered Medications from this encounter No Administered Medications Recorded Results Includes: Results discussed during this encounter No Results Recorded For Specified Dates History of Present Illness Includes: History of Present Illness from this encounter No History of Present Illness Recorded Social History Description Last Updated Tobacco non-user 06/11/2021 Last Documented On 3 1:26PM ; [facility] Difficulty walking 06/11/2021 Last Documented On 3 1:26PM ; [facility] Smoking Status Unknown Procedures and Surgical History Surgical History Last Updated No Pacemaker 06/11/2021 Last Documented On 3 1:26PM ; [facility] Surgical / procedural history Over 20 yr s ago 06/11/2021 Last Documented On 3 1:26PM ; [facility] Medical History Includes: Medical History addressed during this encounter Description Last Updated Denies a fear of falling. 07/08/2021 Last Documented On 3 1:26PM ; [facility] Has had no fall in the last 12 months. 0 07/08/2021 Last Documented On 3 1:26PM ; [facility] Currently wearing eyeglasses 06/11/2021 Last Documented On 3 1:26PM ; [facility] No Pain Pump 06/11/2021 Last Documented On 3 1:26PM ; [facility] No Spinal cord stimulator 06/11/2021 Last Documented On 3 1:26PM ; [facility] Physical therapy 06/11/2021 Last Documented On 3 1:26PM ; [facility] Please list all illnesses/co nditions you have been diagnosed with: Anxiety/panic attacks, high blood pressure, high colest 06/11/2021 Last Documented On 3 1:26PM ; [facility] Please list all surgeries: L eft Knee surgery for torn miniscus in 1998. hiatal hernia repair in October 2013 and again in June 2017 06/11/2021 Last Documented On 3 1:26PM ; [facility] Family History Includes: Family History addressed during this encounter Description Last Updated Family history of Arthritis 06/11/2021 Last Documented On 3 1:26PM ; [facility] Paternal history of reported family hist ory of seizures 06/11/2021 Last Documented On 3 1:26PM ; [facility] Review of Systems Includes: Review of Systems [...] Active Last Documented On 3 3:05PM ; [facility] Meloxicam Allergy 06/11/2021 Active Last Documented On 3 3:05PM ; [facility] Lamotrigine Allergy 06/11/2021 Active Last Documented On 3 3:05PM ; [facility] LaMICtal Allergy Skin Rashes / Eruption of skin 2 Active Last Documented On 3 3:05PM ; [facility] Iodine Allergy Skin Rashes / Eruption of skin 2 Active Last Documented On 3 3:05PM ; [facility] Encounters Encounter Provider Location Date Check-In Time Check-Out Time Diagnosis RX ISSUE/REFILL JONELLE MOSES LEAD SHIPPER-FPA, ART CONSERVATOR-BC 01/02/2023 1:26PM 11:59PM Insurance Includes: Active Insurance Policies Plan Name Member ID Group # Subscriber Relationship Effect jad Dates 1 - [facility] [id number] JOHNATHON FLORES Se lf Clinical Notes Includes: Clinical Notes from this encounter * Progress note Date Encounter Last Documented by 01/02/2023 RX ISSUE/REFILL Last documented on 01/02/2023; 3:08 PM, JONELLE MOSES LEAD SHIPPER-FPA, ART CONSERVATOR-BC; [facility] Active Problems & Conditions - Anxiety Disorder Nos - Depression - Essential Hypertension - Hyperlipidemia Chief Complaint Phone Call - Chief Concern: Reason for call:RX REFILL Patient is requesting a refill on HYDROCODONE 5/325 ~How is medication taken? BID ~How many are left?8 Risk Assessment Score: LOW ~[place]02[place]22 Last Office Visit: 10/18/22 ~ pt phone # for Return call: [phone] ~Last Drug Screen:10/18/22 ~Date/Initials: 01/02/23 CB. Current Medication - Albuterol Sulfate HFA 108 (90 Base) MCG/ACT Inhalation Aerosol Solution 0 days, 0 refills - buPROPion HCl ER (XL) 150 MG Oral Tablet Extended Release 24 Hour once a day, 1 days, 0 refills - Celecoxib 200 MG Oral Capsule TAKE 1 CAPSULE BY MOUTH EVERY MORNING WITH FOOD, 30 days, 2 refills - Citalopram Hydrobromide 40 MG Oral Tablet 0 days, 0 refills - Methocarbamol 500 MG Oral Tablet One tablet three times a day as needed, 30 days, 1 refills - Pregabalin 150 MG Oral Capsule TAKE 1 CAPSULE BY MOUTH TWICE DAILY, 30 days, 1 refills - Valium 2 MG Oral Tablet take 1 tablet 1 hour before procedure, 30 days, 0 refills Past Medical/Surgical History Reported: Physical therapy, [...] Surgical / Procedural: Surgical / procedural history Over 20 yrs ago. [...] family history of seizures Plan StartCited - Spondylosis w/o myelopathy or radiculopathy, lumbar region HYDROcodone-Acetaminophen 5-325 MG tablet One tablet twice a day as needed for severe pain, 30 days, 0 refills EndCited Health Reminders - Assess Need for CT Lung Screen satisfied 01/02/2023. - Assess Tobacco Use satisfied 01/02/2023.
--- OUTSIDE RECORDS SUMMARY | 2024-06-24 18:21 | XMS_ITS | Clinical Summary ---
Author Organization [facility] Address [address] [place] [address] Care Team Providers Care Parts Cleaner Name Role Phone Yanet Otoole MD Primary Care Provider [phone] Allergies Active Allergy Reactions Criticality Noted Date Comments Iodine Anaphylaxis High Lamotrigine Rash Medium Shellfish Containing Products Anaphylaxis High 12/26 Medications citalopram (CeleXA) 40 mg tablet 8 Active naproxen (NAPROSYN) 500 mg tablet Take 1 tablet (500 mg total) by mouth 2 (two) times a day with meals. 30 tablet 8 Active diazePAM (VALIUM) 5 mg tablet Take 1 tablet (5 mg total) by mouth every 8 (eight) hours as needed for muscle spasms. 10 tablet 8 Active acetaminophen-c odeine (TYLENOL with CODEINE #3) 300-30 mg per tablet Take 1 tablet by mouth every 6 (six) hours as needed for pain Take with food 10 tablet 9 Active gentamicin (GARAMYCIN) 0.3 % ophthalmic solution Administer 1 drop into the left eye every 4 (four) hours 5 mL 9 Active HYDROcodone-prasanna taminophen (NORCO) 5-325 mg per tabletIndicatio ns:Pain Take 1 tablet by mouth every 4 (four) hours as needed for pain 12 tablet 1 Active cyclobenzaprine (FLEXERIL) 10 mg tablet Take 1 tablet (10 mg total) by mouth 2 (two) times a day as needed for muscle spasms 20 tablet 1 Active busPIRone (BUSPAR) 10 mg tabletIndicatio ns:Generalized Anxiety Disorder Take 10 mg by mouth 2 (two) times a day as needed (pt takes 10 mg daily) Active losartan-hydroC HLOROthiazide (HYZAAR) 100-12.5 mg per tablet Take 1 tablet by mouth daily Active rosuvastatin (CRESTOR) 5 mg tablet Take 5 mg by mouth daily Active amLODIPine (NORVASC) 5 mg tablet Take 0.5 tablets (2.5 mg total) by mouth daily 10 tablet 2 Active Active Problems Problem Noted Date Diagnosed Date Acute conjunctivitis of left eye 10/17/2018 Social History Tobacco Use Types Packs/Day Years Used Date Smoking Tobacco: Every Day Alcohol Use Standard Drinks/Week Comments No 0 (1 standard drink = 0.6 oz pur e alcohol) Personal Safety Answer Date Recorded Getting School Help Needed Not on file 03/01 Comments No Sex and Gender Information Value Date Recorded Sex Assigned at Not on file Legal Sex Female 9:50 AM FOREST RESOURCES PROFESSOR Gender Identity Not on file Sexual Orientation Not on file Obstetrics History Last Filed Vital Signs Vital Sign Reading Time Taken Comments Blood Pressure 163/95 04/01/2021 2:15 PM FOREST RESOURCES PROFESSOR Pulse 65 04/01/2021 2:15 PM FOREST RESOURCES PROFESSOR Temperature 36.3 C (97.4 F) 04/01/2021 11:08 AM FOREST RESOURCES PROFESSOR Respiratory Rate 20 04/01/2021 1:00 PM FOREST RESOURCES PROFESSOR Oxygen Saturation 100% 04/01/2021 2:15 PM FOREST RESOURCES PROFESSOR Inhaled Oxygen Concentration - - Weight 92.1 kg (203 lb) 04/01/2021 11:08 AM FOREST RESOURCES PROFESSOR Height 175.3 cm (5' 9 ) 04/01/2021 11:08 AM FOREST RESOURCES PROFESSOR Body Mass Index 29.98 04/01/2021 11:08 AM FOREST RESOURCES PROFESSOR Plan of Treatment Health Maintenance Due Date Last Done Comments Breast Cancer Screening-Mammogram 1972 Cervical Cancer Screening 1972 Colon Cancer Screening-Colonoscopy 1972 Depression Screening 1972 Hepatitis C Screening 1972 Hepatitis B Screening 1990 Regular Well Visit/Exam 18-64 1990 Pneumococcal vaccine <65 (1 of 2 - PCV) 09/26/1991 DTaP/Tdap/Td Vaccine (2 - Td or Tdap) 03/06/202003/2010 Zoster Vaccine (1 of 2) 2022 Covid-19 Vaccine ( season) 11/05/202309/2020, 07/20/2020 Influenza Vaccine (#1) 2023 11/30/2020, 2016 Insurance [facility] Address: [place] [address] Care Teams Parts Cleaner Relationship Specialty Start Date End Date Yanet Otoole MD [address] [place] [address] PCP - General 10/20/16
--- OUTSIDE RECORDS SUMMARY | 2024-06-24 18:21 | XMS_ITS | Referral Summary ---
Author Organization [facility] Address [address] [place] [address] Care Team Providers Care Photographic Process Attendant Name Role Phone Yanet Otoole MD Primary Care Provider [phone] Allergies Active Allergy Reactions Criticality Noted Date [...] on file Legal Sex Female 9:50 AM STRIPER SPRAY GUN Gender Identity Not on file Sexual Orientation Not on file Last Filed Vital Signs Vital Sign Reading Time Taken Comments Blood Pressure 163/95 04/01/2021 2:15 PM STRIPER SPRAY GUN Pulse 65 04/01/2021 2:15 PM STRIPER SPRAY GUN Temperature 36.3 C (97.4 F) 04/01/2021 11:08 AM STRIPER SPRAY GUN Respiratory Rate 20 04/01/2021 1:00 PM STRIPER SPRAY GUN Oxygen Saturation 100% 04/01/2021 2:15 PM STRIPER SPRAY GUN Inhaled Oxygen Concentration - - Weight 92.1 kg (203 lb) 04/01/2021 11:08 AM STRIPER SPRAY GUN Height 175.3 cm (5' 9 ) 04/01/2021 11:08 AM STRIPER SPRAY GUN Body Mass Index 29.98 04/01/2021 11:08 AM STRIPER SPRAY GUN Plan of Treatment Not on file Insurance [facility] CHOICE PLUS [place] [id number] Care Teams Photographic Process Attendant Relationship Specialty Start Date End Date Yanet Otoole MD [address] [place] [address] PCP - General 10/20/16
--- OUTSIDE RECORDS SUMMARY | 2024-06-24 18:21 | XMS_ITS ---
Author Organization [facility] Address [address] [place] [address] Phone Care Team Providers Care Waistline Joiner Overlock Name Role Phone JI SIGALAPARDEEP Primary Care Provider [phone] Problems Includes: Active, inactive, and resolved Problems All Visits Onset Date Resolved Date Provider Condition S tatus Depression Unknown JONELLE G JOSUÉ GREASE MAN-FPA, PHOTOGRAMMETRIC STEREO COMPILER-BC Active Last Documented On 2 9:23AM ; [facility] Anxiety Disorder Nos Unknown JONELLE G JOSUÉ GREASE MAN-FPA, PHOTOGRAMMETRIC STEREO COMPILER-BC Active Last Documented On 2 9:23AM ; [facility] Hyperlipidemia Unknown JONELLE G JOSUÉ GREASE MAN-F PA, PHOTOGRAMMETRIC STEREO COMPILER-BC Active Last Documented On 2 9:23AM ; [facility] Essential Hypertension Unknown JONELLE G KUL P GREASE MAN-FPA, PHOTOGRAMMETRIC STEREO COMPILER-BC Active Last Documented On 2 9:22AM ; [facility] Plan of Treatment Referrals To Diagnosis Pain Management [address] [address] - Sacroiliitis, not elsewhere classified Note: consent for L SI joint steroid injection under fluoroscopyNo need to hold NSAIDs/ASA Last Documented On 2 11:34AM ; [facility] Pain Management [address] [address] - Radiculopathy, lumbar region Note: consent for bilateral L5-S1 transforaminal epidural steroid injection under fluoroscopyNo need to hold NSAIDs/ASA Last Documented On 2 12:04PM ; [facility] Pain Management [address] [address] - Radiculopathy, lumbar region Note: consent for repeat nikita ateral L5-S1 transforaminal epidural steroid injection under fluoroscopyNo need to hold NSAIDs/ASA Last Documented On 2 1:35PM ; [facility] Orthopedic [facility] - [address] [place] [address] Radiculopathy, lumbar region Note: Needs Orthopedic or Ne uro Surgery evaluation for her chronic low back and radicular pain. See previous chart notes. Last Documented On 4 8:21AM ; [facility] Pain Management [address] [address] - Radiculopathy, lumbar region Note: consent for bilateral L5-S1 Transforaminal epidural steroid injection under fluoroscopy Last Documented On 2 10:29AM ; [facility] Pain Management [address] [address] - Spondylosis w/o myelopathy or radiculopathy, lumbar region Note: consent for bilateral L3, L4, L5 medial branch blocks under fluoroscopy [levels L4-5 and L5-S1] Last Documented On 3 11:24AM ; [facility] Pain Management [address] [address] - Spondylosis w/o myelopathy or radiculopathy, lumbar region Note: consent for confirmato ry bilateral L3, L4, L5 medial branch blocks under fluoroscopy [levels L4-5 and L5-S1] Last Documented On 3 2:22PM ; [facility] Pain Management [address] [address] - Spondylosis w/o myelopathy or radiculopathy, lumbar region Note: consent for Right L3, L4, L5 medial branch thermal RFA under fluoroscopy [#1 of 2]Left L3, L4, L5 medial branch thermal RFA under fluoroscopy [#2 of 2] Last Documented On 3 2:22PM ; [facility] Orthopedic [facility] - [address] [place] [address] Radiculopathy, lumbar region Note: w/ Dr Quintanilla Last Documented On 4 11:47AM ; [facility] Instructions to patient Intervention and counseling on cessation of tobacco use : Patient recieved smoking cessation handout Last Documented On 2 10:40AM ; [facility] Education and Decision Aids were provided during visit for: Lifestyle education Last Documented On 3 10:53AM ; [facility] Pill Count: OXYCODONE FROM Shahab QUINTANILLA ~Hydrocodone about 1 weeks worth left Last Documented On 3 11:01AM ; [facility] Lifestyle education Last Documented On 3 2:55PM ; [facility] Pill Count: 35 Appropriate H ydrocodone: Last Documented On 3 3:01PM ; [facility] Lifestyle education Last Documented On 3 3:30PM ; [facility] Pill Count: 20 Hydrocodone: Last Documented On 3 3:35PM ; [facility] Lifestyle education Last Documented On 3 3:30PM ; [facility] Pill Count: 27 Hydrocodone: Last Documented On 3 3:35PM ; [facility] Lifestyle education Last Documented On 3 9:34AM ; [facility] Pill Count: 22 Hydrocodone: Last Documented On 3 9:44AM ; [facility] Pill Count: Patient did not bring pain medication to appointment for pill count, per policy. Advised in order to continue to safely prescribe opioids, medication must be brought to each appointment Last Documented On 3 9:34AM ; [facility] Lifestyle education Last Documented On 3 9:50AM ; [facility] Pill Count: Hydrocodone: Last Documented On 3 9:54AM ; [facility] Pill Count: Patient did not bring pain medication to appointment for pill count, per policy. Advised in order to continue to safely prescribe opioids, medication must be brought to each appointment Last Documented On 3 9:54AM ; [facility] Lifestyle education Last Documented On 3 10:43AM ; [facility] Pill Count: twelve Hydrocodo ne: Last Documented On 3 11:00AM ; [facility] Lifestyle education Last Documented On 3 10:30AM ; [facility] Pill Count: Hydrocodone: DID not bring Last Documented On 3 11:13AM ; [facility] Lifestyle education Last Documented On 2 8:33AM ; [facility] Pill Count: 0.5 HYDROCODONE Last Documented On 2 8:37AM ; [facility] Lifestyle education Last Documented On 2 8:57AM ; [facility] Pill Count: 0 HYDROCODONE Last Documented On 2 9:02AM ; [facility] Lifestyle education Last Documented On 2 10:35AM ; [facility] Pill Count: 20 HYDROCODONE Last Documented On 2 10:40AM ; [facility] Lifestyle education Last Documented On 2 9:11AM ; [facility] Lifestyle education Last Documented On 2 11:07AM ; [facility] Pill Count: ten aCETAMINOPHE N-CODEINE 3 Last Documented On 2 11:20AM ; [facility] Lifestyle education Last Documented On 2 9:51AM ; [facility] Assessments Includes: Assessments for all patient encounters Findings Encounter Date Chronic pain syndrome TELEHEALTH with JONELLE Jessica MOSES GREASE MAN-FPA, PHOTOGRAMMETRIC STEREO COMPILER-BC 02/03/2023 Last Documented On 3 11:08AM ; [facility] DORSALGIA TELEHEALTH with JONELLE MOSES A PRN-FPKaiden, PHOTOGRAMMETRIC STEREO COMPILER-BC 02/03/2023 Last Documented On 3 11:08AM ; [facility] Intervertebral disc degeneration [facility] with JONELLE MOSES GREASE MAN-FPA, PHOTOGRAMMETRIC STEREO COMPILER-BC 02/03/2023 Last Documented On 3 11:08AM ; [facility] Lumbar radiculopathy TELEHEALTH with JONELLE FENGP GREASE MAN-FPA, PHOTOGRAMMETRIC STEREO COMPILER-BC 02/03/2023 Last Documented On 3 11:08AM ; [facility] Lumbar spondylosis without m yelopathy or radiculopathy TELEHEALTH with JONELLE PATTERSONLP GREASE MAN-FPA, PHOTOGRAMMETRIC STEREO COMPILER-BC 02/03/2023 Last Documented On 3 11:08AM ; [facility] Sacroiliitis TELEHEALTH with JONELLE PATTERSONLP A PRN-FPA, PHOTOGRAMMETRIC STEREO COMPILER-BC 02/03/2023 Last Documented On 3 11:08AM ; [facility] Chronic pain syndrome PAIN MANAGEMENT FO LLOW UP with JONELLE Lpoez JOSUÉ GREASE MAN-FPA, PHOTOGRAMMETRIC STEREO COMPILER-BC 10/18/2022 Last Documented On 3 3:32PM ; [facility] DORS[place] PAIN MANAGEMENT FOLLOW UP with Jacob Lopez JOSUÉ GREASE MAN-FPA, PHOTOGRAMMETRIC STEREO COMPILER-BC 10/18/2022 Last Documented On 3 3:32PM ; [facility] Intervertebral disc degeneration PAIN MA NAGEMENT FOLLOW UP with JONELLE Lopez JOSUÉ GREASE MAN-FPA, PHOTOGRAMMETRIC STEREO COMPILER-BC 10/18/2022 Last Documented On 3 3:32PM ; [facility] Lumbar radiculopathy PAIN MANAGEMENT FOL LOW UP with JONELLE PATTERSONLP GREASE MAN-FPA, PHOTOGRAMMETRIC STEREO COMPILER-BC 10/18/2022 Last Documented On 3 3:32PM ; [facility] Lumbar spondylosis without m yelopathy or radiculopathy PAIN MANAGEMENT FOLLOW UP with JONELLE Lopez JOSUÉ GREASE MAN-FPA, PHOTOGRAMMETRIC STEREO COMPILER-BC 10/18/2022 Last Documented On 3 3:32PM ; [facility] Sacroiliitis PAIN MANAGEMENT FOLL OW UP with JONELLE Jessica JOSUÉ GREASE MAN-FPA, PHOTOGRAMMETRIC STEREO COMPILER-BC 10/18/2022 Last Documented On 3 3:32PM ; [facility] Chronic pain syndrome PAIN MANAGEMENT FO LLOW UP with JONELLE Jessica JOSUÉ GREASE MAN-FPA, PHOTOGRAMMETRIC STEREO COMPILER-BC 08/23/2022 Last Documented On 3 3:54PM ; [facility] DORS[place] PAIN MANAGEMENT FOLLOW UP with M ANISHA Lopez JOSUÉ GREASE MAN-FPA, PHOTOGRAMMETRIC STEREO COMPILER-BC 08/23/2022 Last Documented On 3 3:54PM ; [facility] Intervertebral disc degeneration PAIN MA NAGEMENT FOLLOW UP with JONELLE G JOSUÉ GREASE MAN-FPA, PHOTOGRAMMETRIC STEREO COMPILER-BC 08/23/2022 Last Documented On 3 3:54PM ; [facility] Lumbar radiculopathy PAIN MANAGEMENT FOL LOW UP with JONELLE G JOSUÉ GREASE MAN-FPA, PHOTOGRAMMETRIC STEREO COMPILER-BC 08/23/2022 Last Documented On 3 3:54PM ; [facility] Lumbar spondylosis without m yelopathy or radiculopathy PAIN MANAGEMENT FOLLOW UP with JONELLE G JOSUÉ GREASE MAN-FPA, PHOTOGRAMMETRIC STEREO COMPILER-BC 08/23/2022 Last Documented On 3 3:54PM ; [facility] Sacroiliitis PAIN MANAGEMENT FOLL OW UP with JONELLE G JOSUÉ GREASE MAN-FPA, PHOTOGRAMMETRIC STEREO COMPILER-BC 08/23/2022 Last Documented On 3 3:54PM ; [facility] Chronic pain syndrome PAIN MANAGEMENT FO LLOW UP with JONELLE G JOSUÉ GREASE MAN-FPA, PHOTOGRAMMETRIC STEREO COMPILER-BC 07/19/2022 Last Documented On 3 3:53PM ; [facility] DORS[place]IA PAIN MANAGEMENT FOLLOW UP with M ANISHA G JOSUÉ GREASE MAN-FPA, PHOTOGRAMMETRIC STEREO COMPILER-BC 07/19/2022 Last Documented On 3 3:53PM ; [facility] Intervertebral disc degeneration PAIN MA NAGEMENT FOLLOW UP with JONELLE G JOSUÉ GREASE MAN-FPA, PHOTOGRAMMETRIC STEREO COMPILER-BC 07/19/2022 Last Documented On 3 3:53PM ; [facility] Lumbar radiculopathy PAIN MANAGEMENT FOL LOW UP with JONELLE G JOSUÉ GREASE MAN-FPA, PHOTOGRAMMETRIC STEREO COMPILER-BC 07/19/2022 Last Documented On 3 3:53PM ; [facility] Lumbar spondylosis without m yelopathy or radiculopathy PAIN MANAGEMENT FOLLOW UP with JONELLE G JOSUÉ GREASE MAN-FPA, PHOTOGRAMMETRIC STEREO COMPILER-BC 07/19/2022 Last Documented On 3 3:53PM ; [facility] Sacroiliitis PAIN MANAGEMENT FOLL OW UP with JONELLE G JOSUÉ GREASE MAN-FPA, PHOTOGRAMMETRIC STEREO COMPILER-BC 07/19/2022 Last Documented On 3 3:53PM ; [facility] Chronic pain syndrome PAIN MANAGEMENT FO LLOW UP with JONELLE G JOSUÉ GREASE MAN-FPA, PHOTOGRAMMETRIC STEREO COMPILER-BC 06/17/2022 Last Documented On 3 12:24PM ; [facility] DORS[place]IA PAIN MANAGEMENT FOLLOW UP with Jacob [place] Jessica JOSUÉ GREASE MAN-FPA, PHOTOGRAMMETRIC STEREO COMPILER-BC 06/17/2022 Last Documented On 3 12:24PM ; [facility] Intervertebral disc degeneration PAIN MA NAGEMENT FOLLOW UP with JONELLE G JOSUÉ GREASE MAN-FPA, PHOTOGRAMMETRIC STEREO COMPILER-BC 06/17/2022 Last Documented On 3 12:24PM ; [facility] Lumbar radiculopathy PAIN MANAGEMENT FOL LOW UP with JONELLE G JOSUÉ GREASE MAN-FPA, PHOTOGRAMMETRIC STEREO COMPILER-BC 06/17/2022 Last Documented On 3 12:24PM ; [facility] Lumbar spondylosis without m yelopathy or radiculopathy PAIN MANAGEMENT FOLLOW UP with JONELLE Jessica JOSUÉ GREASE MAN-FPA, PHOTOGRAMMETRIC STEREO COMPILER-BC 06/17/2022 Last Documented On 3 12:24PM ; [facility] Sacroiliitis PAIN MANAGEMENT FOLL OW UP with JONELLE G JOSUÉ GREASE MAN-FPA, PHOTOGRAMMETRIC STEREO COMPILER-BC 06/17/2022 Last Documented On 3 12:24PM ; [facility] [Z01.818 - Encounter for ot er preprocedural examination] visit for: preoperative exam PAIN MANAGEMENT FOLLOW UP with JONELLE G JOSUÉ GREASE MAN-FPA, PHOTOGRAMMETRIC STEREO COMPILER-BC 05/13/2022 Last Documented On 3 11:50AM ; [facility] Chronic pain syndrome PAIN MANAGEMENT FO LLOW UP with JONELLE G JOSUÉ GREASE MAN-FPA, PHOTOGRAMMETRIC STEREO COMPILER-BC 05/13/2022 Last Documented On 3 11:50AM ; [facility] DORS[place]IA PAIN MANAGEMENT FOLLOW UP with Jacob [place] G JOSUÉ GREASE MAN-FPA, PHOTOGRAMMETRIC STEREO COMPILER-BC 05/13/2022 Last Documented On 3 11:50AM ; [facility] Intervertebral disc degeneration PAIN MA NAGEMENT FOLLOW UP with JONELLE Lopez JOSUÉ GREASE MAN-FPA, PHOTOGRAMMETRIC STEREO COMPILER-BC 05/13/2022 Last Documented On 3 11:50AM ; [facility] Lumbar radiculopathy PAIN MANAGEMENT FOL LOW UP with JONELLE Lopez JOSUÉ GREASE MAN-FPA, PHOTOGRAMMETRIC STEREO COMPILER-BC 05/13/2022 Last Documented On 3 11:50AM ; [facility] Lumbar spondylosis without m yelopathy or radiculopathy PAIN MANAGEMENT FOLLOW UP with JONELLE Lopez JOSUÉ GREASE MAN-FPA, PHOTOGRAMMETRIC STEREO COMPILER-BC 05/13/2022 Last Documented On 3 11:50AM ; [facility] Sacroiliitis PAIN MANAGEMENT FOLL OW UP with JONELLE Lopez JOSUÉ GREASE MAN-FPA, PHOTOGRAMMETRIC STEREO COMPILER-BC 05/13/2022 Last Documented On 3 11:50AM ; [facility] Chronic pain syndrome PAIN MANAGEMENT FO LLOW UP with JONELLE Lopez JOSUÉ GREASE MAN-FPA, PHOTOGRAMMETRIC STEREO COMPILER-BC 04/25/2022 Last Documented On 3 11:58AM ; [facility] DORS[place]IA PAIN MANAGEMENT FOLLOW UP with Jacob Lopez JOSUÉ GREASE MAN-FPA, PHOTOGRAMMETRIC STEREO COMPILER-BC 04/25/2022 Last Documented On 3 11:58AM ; [facility] Intervertebral disc degeneration PAIN MA NAGEMENT FOLLOW UP with JONELLE Lpoez JOSUÉ GREASE MAN-FPA, PHOTOGRAMMETRIC STEREO COMPILER-BC 04/25/2022 Last Documented On 3 11:58AM ; [facility] Lumbar radiculopathy PAIN MANAGEMENT FOL LOW UP with JONELLE Jessica JOSUÉ GREASE MAN-FPA, PHOTOGRAMMETRIC STEREO COMPILER-BC 04/25/2022 Last Documented On 3 11:58AM ; [facility] Lumbar spondylosis without m yelopathy or radiculopathy PAIN MANAGEMENT FOLLOW UP with JONELLE Lopez JOSUÉ GREASE MAN-FPA, PHOTOGRAMMETRIC STEREO COMPILER-BC 04/25/2022 Last Documented On 3 11:58AM ; [facility] Sacroiliitis PAIN MANAGEMENT FOLL OW UP with JONELLE Lopez JOSUÉ GREASE MAN-FPA, PHOTOGRAMMETRIC STEREO COMPILER-BC 04/25/2022 Last Documented On 3 11:58AM ; [facility] Chronic pain syndrome PAIN MANAGEMENT FO LLOW UP with JONELLE Jessica JOSUÉ GREASE MAN-FPA, PHOTOGRAMMETRIC STEREO COMPILER-BC 03/22/2022 Last Documented On 3 11:14AM ; [facility] DORS[place]IA PAIN MANAGEMENT FOLLOW UP with Jacob Lopez JOSUÉ GREASE MAN-FPA, PHOTOGRAMMETRIC STEREO COMPILER-BC 03/22/2022 Last Documented On 3 11:14AM ; [facility] Intervertebral disc degeneration PAIN MA NAGEMENT FOLLOW UP with JONELLE Jessica JOSUÉ GREASE MAN-FPA, PHOTOGRAMMETRIC STEREO COMPILER-BC 03/22/2022 Last Documented On 3 11:14AM ; [facility] Left-sided sciatica PAIN MANAGEMENT FOLL OW UP with JONELLE Jessica JOSUÉ GREASE MAN-FPA, PHOTOGRAMMETRIC STEREO COMPILER-BC 03/22/2022 Last Documented On 3 11:14AM ; [facility] Lumbar radiculopathy PAIN MANAGEMENT FOL LOW UP with JONELLE Jessica JOSUÉ GREASE MAN-FPA, PHOTOGRAMMETRIC STEREO COMPILER-BC 03/22/2022 Last Documented On 3 11:14AM ; [facility] Lumbar spondylosis without m yelopathy or radiculopathy PAIN MANAGEMENT FOLLOW UP with JONELLE Lopez JOSUÉ GREASE MAN-FPA, PHOTOGRAMMETRIC STEREO COMPILER-BC 03/22/2022 Last Documented On 3 11:14AM ; [facility] Sacroiliitis PAIN MANAGEMENT FOLL OW UP with JONELLE Jessica JOSUÉ GREASE MAN-FPA, PHOTOGRAMMETRIC STEREO COMPILER-BC 03/22/2022 Last Documented On 3 11:14AM ; [facility] Chronic pain syndrome PAIN MANAGEMENT FO LLOW UP with JONELLE Jessica JOSUÉ GREASE MAN-FPA, PHOTOGRAMMETRIC STEREO COMPILER-BC 02/14/2022 Last Documented On 2 9:06AM ; [facility] DORS[place]GIA PAIN MANAGEMENT FOLLOW UP with Jacob Lopez JOSUÉ GREASE MAN-FPA, PHOTOGRAMMETRIC STEREO COMPILER-BC 02/14/2022 Last Documented On 2 9:06AM ; [facility] Intervertebral disc degeneration PAIN MA NAGEMENT FOLLOW UP with JONELLE Jessica JOSUÉ GREASE MAN-FPA, PHOTOGRAMMETRIC STEREO COMPILER-BC 02/14/2022 Last Documented On 2 9:06AM ; [facility] Left-sided sciatica PAIN MANAGEMENT FOLL OW UP with JONELLE Jessica JOSUÉ GREASE MAN-FPA, PHOTOGRAMMETRIC STEREO COMPILER-BC 02/14/2022 Last Documented On 2 9:06AM ; [facility] Lumbar radiculopathy PAIN MANAGEMENT FOL LOW UP with JONELLE Jessica JOSUÉ GREASE MAN-FPA, PHOTOGRAMMETRIC STEREO COMPILER-BC 02/14/2022 Last Documented On 2 9:06AM ; [facility] Lumbar spondylosis with radiculopathy PA IN MANAGEMENT FOLLOW UP with JONELLE Jessica JOSUÉ GREASE MAN-FPA, PHOTOGRAMMETRIC STEREO COMPILER-BC 02/14/2022 Last Documented On 2 9:06AM ; [facility] Sacroiliitis PAIN MANAGEMENT FOLL OW UP with JONELLE Jessica JOSUÉ GREASE MAN-FPA, PHOTOGRAMMETRIC STEREO COMPILER-BC 02/14/2022 Last Documented On 2 9:06AM ; [facility] Chronic pain syndrome PAIN MANAGEMENT FO LLOW UP with JONELLE Lopez JOSUÉ GREASE MAN-FPA, PHOTOGRAMMETRIC STEREO COMPILER-BC 09/30/2021 Last Documented On 2 9:57AM ; [facility] DORSALGIA PAIN MANAGEMENT FOLLOW UP with Jacob Lopez JOSUÉ GREASE MAN-FPA, PHOTOGRAMMETRIC STEREO COMPILER-BC 09/30/2021 Last Documented On 2 9:57AM ; [facility] Intervertebral disc degeneration PAIN MA NAGEMENT FOLLOW UP with JONELLE Jessica JOSUÉ GREASE MAN-FPA, PHOTOGRAMMETRIC STEREO COMPILER-BC 09/30/2021 Last Documented On 2 9:57AM ; [facility] Left-sided sciatica PAIN MANAGEMENT FOLL OW UP with JONELLE Jessica JOSUÉ GREASE MAN-FPA, PHOTOGRAMMETRIC STEREO COMPILER-BC 09/30/2021 Last Documented On 2 9:57AM ; [facility] Lumbar radiculopathy PAIN MANAGEMENT FOL LOW UP with JONELLE G JOSUÉ GREASE MAN-FPA, PHOTOGRAMMETRIC STEREO COMPILER-BC 09/30/2021 Last Documented On 2 9:57AM ; [facility] Lumbar spondylosis with radiculopathy PA IN MANAGEMENT FOLLOW UP with JONELLE Jessica JOSUÉ GREASE MAN-FPA, PHOTOGRAMMETRIC STEREO COMPILER-BC 09/30/2021 Last Documented On 2 9:57AM ; [facility] Sacroiliitis PAIN MANAGEMENT FOLL OW UP with JONELLE G JOSUÉ GREASE MAN-FPA, PHOTOGRAMMETRIC STEREO COMPILER-BC 09/30/2021 Last Documented On 2 9:57AM ; [facility] Chronic pain syndrome PAIN MANAGEMENT FO LLOW UP with JONELLE G JOSUÉ GREASE MAN-FPA, PHOTOGRAMMETRIC STEREO COMPILER-BC 08/25/2021 Last Documented On 2 1:19PM ; [facility] DORSALGIA PAIN MANAGEMENT FOLLOW UP with Jacob Lopez JOSUÉ GREASE MAN-FPA, PHOTOGRAMMETRIC STEREO COMPILER-BC 08/25/2021 Last Documented On 2 1:19PM ; [facility] Intervertebral disc degeneration PAIN MA NAGEMENT FOLLOW UP with JONELLE G JOSUÉ GREASE MAN-FPA, PHOTOGRAMMETRIC STEREO COMPILER-BC 08/25/2021 Last Documented On 2 1:19PM ; [facility] Lumbar radiculopathy PAIN MANAGEMENT FOL LOW UP with JONELLE Jessica JOSUÉ GREASE MAN-FPA, PHOTOGRAMMETRIC STEREO COMPILER-BC 08/25/2021 Last Documented On 2 1:19PM ; [facility] Lumbar spondylosis with radiculopathy PA IN MANAGEMENT FOLLOW UP with JONELLE G JOSUÉ GREASE MAN-FPA, PHOTOGRAMMETRIC STEREO COMPILER-BC 08/25/2021 Last Documented On 2 1:19PM ; [facility] Sacroiliitis PAIN MANAGEMENT FOLL OW UP with JONELLE G JOSUÉ GREASE MAN-FPA, PHOTOGRAMMETRIC STEREO COMPILER-BC 08/25/2021 Last Documented On 2 1:19PM ; [facility] Chronic pain syndrome PAIN MANAGEMENT FO LLOW UP with JONELLE G JOSUÉ GREASE MAN-FPA, PHOTOGRAMMETRIC STEREO COMPILER-BC 08/04/2021 Last Documented On 2 9:40AM ; [facility] DORS[place] PAIN MANAGEMENT FOLLOW UP with Jacob Lopez JOSUÉ GREASE MAN-FPA, PHOTOGRAMMETRIC STEREO COMPILER-BC 08/04/2021 Last Documented On 2 9:40AM ; [facility] Intervertebral disc degeneration PAIN MA NAGEMENT FOLLOW UP with JONELLE G JOSUÉ GREASE MAN-FPA, PHOTOGRAMMETRIC STEREO COMPILER-BC 08/04/2021 Last Documented On 2 9:40AM ; [facility] Lumbar radiculopathy PAIN MANAGEMENT FOL LOW UP with JONELLE Lopez JOSUÉ GREASE MAN-FPA, PHOTOGRAMMETRIC STEREO COMPILER-BC 08/04/2021 Last Documented On 2 9:40AM ; [facility] Lumbar spondylosis with radiculopathy PA IN MANAGEMENT FOLLOW UP with JONELLE Lopez JOSUÉ GREASE MAN-FPA, PHOTOGRAMMETRIC STEREO COMPILER-BC 08/04/2021 Last Documented On 2 9:40AM ; [facility] Sacroiliitis PAIN MANAGEMENT FOLL OW UP with JONELLE Jessica JOSUÉ GREASE MAN-FPA, PHOTOGRAMMETRIC STEREO COMPILER-BC 08/04/2021 Last Documented On 2 9:40AM ; [facility] Chronic pain syndrome PAIN MANAGEMENT FO LLOW UP with JONELLE Jessica JOSUÉ GREASE MAN-FPA, PHOTOGRAMMETRIC STEREO COMPILER-BC 07/08/2021 Last Documented On 2 11:49AM ; [facility] DORSALGIA PAIN MANAGEMENT FOLLOW UP with Jacob Lopez JOSUÉ GREASE MAN-FPA, PHOTOGRAMMETRIC STEREO COMPILER-BC 07/08/2021 Last Documented On 2 11:49AM ; [facility] Intervertebral disc degeneration PAIN MA NAGEMENT FOLLOW UP with JONELLE Jessica JOSUÉ GREASE MAN-FPA, PHOTOGRAMMETRIC STEREO COMPILER-BC 07/08/2021 Last Documented On 2 11:49AM ; [facility] Lumbar spondylosis with radiculopathy PA IN MANAGEMENT FOLLOW UP with JONELLE Lopez JOSUÉ GREASE MAN-FPA, PHOTOGRAMMETRIC STEREO COMPILER-BC 07/08/2021 Last Documented On 2 11:49AM ; [facility] Sacroiliitis PAIN MANAGEMENT FOLL OW UP with JONELLE Jessica JOSUÉ GREASE MAN-FPA, PHOTOGRAMMETRIC STEREO COMPILER-BC 07/08/2021 Last Documented On 2 11:49AM ; [facility] Chronic pain syndrome PAIN MANAGEMENT NE W CONSULT with JONELLE G JOSUÉ GREASE MAN-FPA, PHOTOGRAMMETRIC STEREO COMPILER-BC 06/11/2021 Last Documented On 2 9:59AM ; [facility] DORSALGIA PAIN MANAGEMENT NEW CONSULT with JONELLE G JOSUÉ GREASE MAN-FPA, PHOTOGRAMMETRIC STEREO COMPILER-BC 06/11/2021 Last Documented On 2 9:59AM ; [facility] Intervertebral disc degeneration PAIN MA NAGEMENT NEW CONSULT with JONELLE MOSES APRN-FPKaiden PHOTOGRAMMETRIC STEREO COMPILER-BC 06/11/2021 Last Documented On 2 9:59AM ; [facility] Lumbar spondylosis with radiculopathy PA IN MANAGEMENT NEW CONSULT with JONELLE MOSES GREASE MAN-FPKaiden PHOTOGRAMMETRIC STEREO COMPILER- 06/11/2021 Last Documented On 2 9:59AM ; [facility] Instructions Includes: Instructions for all patient encounters Instructions to patient Intervention and counseling on cessation of tobacco use : Patient recieved smoking cessation handout Last Documented On 2 10:40AM ; [facility] Education and Decision Aids were provided during visit for: Lifestyle education Last Documented On 3 10:53AM ; [facility] Pill Count: OXYCODONE FROM D R DWIGHT ~Hydrocodone about 1 weeks worth left Last Documented On 3 11:01AM ; [facility] Lifestyle education Last Documented On 3 2:55PM ; [facility] Pill Count: 35 Appropriate H ydrocodone: Last Documented On 3 3:01PM ; [facility] Lifestyle education Last Documented On 3 3:30PM ; [facility] Pill Count: 20 Hydrocodone: Last Documented On 3 3:35PM ; [facility] Lifestyle education Last Documented On 3 3:30PM ; [facility] Pill Count: 27 Hydrocodone: Last Documented On 3 3:35PM ; [facility] Lifestyle education Last Documented On 3 9:34AM ; [facility] Pill Count: 22 Hydrocodone: Last Documented On 3 9:44AM ; [facility] Pill Count: Patient did not bring pain medication to appointment for pill count, per policy. Advised in order to continue to safely prescribe opioids, medication must be brought to each appointment Last Documented On 3 9:34AM ; [facility] Lifestyle education Last Documented On 3 9:50AM ; [facility] Pill Count: Hydrocodone: Last Documented On 3 9:54AM ; [facility] Pill Count: Patient did not bring pain medication to appointment for pill count, per policy. Advised in order to continue to safely prescribe opioids, medication must be brought to each appointment Last Documented On 3 9:54AM ; [facility] Lifestyle education Last Documented On 3 10:43AM ; [facility] Pill Count: twelve Hydrocodo ne: Last Documented On 3 11:00AM ; [facility] Lifestyle education Last Documented On 3 10:30AM ; [facility] Pill Count: Hydrocodone: DID not bring Last Documented On 3 11:13AM ; [facility] Lifestyle education Last Documented On 2 8:33AM ; [facility] Pill Count: 0.5 HYDROCODONE Last Documented On 2 8:37AM ; [facility] Lifestyle education Last Documented On 2 8:57AM ; [facility] Pill Count: 0 HYDROCODONE Last Documented On 2 9:02AM ; [facility] Lifestyle education Last Documented On 2 10:35AM ; [facility] Pill Count: 20 HYDROCODONE Last Documented On 2 10:40AM ; [facility] Lifestyle education Last Documented On 2 9:11AM ; [facility] Lifestyle education Last Documented On 2 11:07AM ; [facility] Pill Count: ten aCETAMINOPHE N-CODEINE 3 Last Documented On 2 11:20AM ; [facility] Lifestyle education Last Documented On 2 9:51AM ; [facility] Medical Equipment - Implanted Devices Includes: Current and historical Devices No Medical Equipment Recorded Medications Includes: Current and historical Medications Current Medications (continue as prescribed) Pregabalin 150 MG Oral Capsule 05/15/2023 Provider: JONELLE MOSES APRN- LESA, STANLEY-BC Diagnosis: Radiculopathy, l umbar region TAKE 1 CAPSULE BY MOUTH TWICE DAILY Last Documented On 4 1:13PM By JONELLE CHINO ; [facility] HYDROcodone-Acetaminophen 5- 325 MG Oral Tablet 02/21/2023 Provider: MATTI PRESCOTT 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, lumbar region One tablet twice a day as ne eded for severe pain Last Documented On 3 9:13AM By JONELLE CHINO ; [facility] Methocarbamol 500 MG Oral Tablet 02/02/2023 Provider: MATTI PRESCOTT Diagnosis: Dorsalgia, unspe cified TAKE 1 TABLET BY MOUTH THREE TIMES DAILY NEEDED Last Documented On 3 11:05AM By JONELLE CHINO ; [facility] buPROPion HCl ER (XL) 150 MG Oral Tablet Extended Release 24 Hour 10/18/2022 Provider: Diagnosis: once a day Last Documented On 3 3:22PM By JONELLE CHINO ; [facility] Citalopram Hydrobromide 40 MG Oral Tablet 06/11/2021 Provider: DELTA SIGALA Diagnosis: Last Documented On 2 9:58AM By JONELLE CHINO ; [facility] Albuterol Sulfate HFA 108 (9 0 Base) MCG/ACT Inhalation Aerosol Solution 06/11/2021 Provider: DELTA RAMSEY Diagnosis: Last Documented On 2 9:58AM By JONELLE CHINO ; [facility] Past Medications on file Celecoxib 200 MG Oral Capsule 04/11/2023 - 05/10/2023 Provider: BRENNA KEARNS Diagnosis: Dorsalgia, unspe cified TAKE 1 CAPSULE BY MOUTH EVER Y MORNING WITH FOOD Last Documented On 4 10:43AM By Christine DAN ; [facility] Celecoxib 200 MG Oral Capsule 03/21/2023 - 04/11/2023 Provider: MATTI PRESCOTT Diagnosis: Dorsalgia, unspe cified TAKE 1 CAPSULE BY MOUTH EVER Y MORNING WITH FOOD Last Documented On 04/11/2023 8:20AM By Brenna ANGEL ; [facility] Celecoxib 200 MG Oral Capsule 02/13/2023 - 03/21/2023 Provider: JONELLE MOSES GREASE MAN-FPA PHOTOGRAMMETRIC STEREO COMPILER-BC Diagnosis: Dorsalgia, unspe cified TAKE 1 CAPSULE BY MOUTH EVER Y MORNING WITH FOOD Last Documented On 4 8:20AM By JONELLE SOLOP-BC ; [facility] Pregabalin 150 MG Oral Capsule 02/03/2023 - 05/15/2023 Provider: JONELLE MOSES GREASE MAN-FPKaiden PHOTOGRAMMETRIC STEREO COMPILER-BC Diagnosis: Radiculopathy, l umbar region TAKE 1 CAPSULE BY MOUTH TWICE DAILY Last Documented On 4 12:59PM By J[facility]ELLE MOSES [facility] ; [facility] Pregabalin 150 MG Oral Capsule 02/02/2023 - 02/03/2023 Provider: JONELLE Richey PRN-FPKaiden PHOTOGRAMMETRIC STEREO COMPILER-BC Diagnosis: TAKE 1 CAPSULE BY MOUTH TWICE DAILY Last Documented On 3 11:08AM By JONELLE MOSES [facility] ; [facility] oxyCODONE HCl 5 MG Oral Tablet 01/31/2023 - 02/21/2023 Provider: Diagnosis: Last Documented On 3 8:59AM By JONELLE ANGEL-TARYN ; [facility] Pregabalin 150 MG Oral Capsule 01/05/2023 - 02/02/2023 Provider: JONELLE MOSES A PRN-FPKaiden PHOTOGRAMMETRIC STEREO COMPILER-BC Diagnosis: TAKE ONE CAPSULE BY MOUTH TWICE DAILY Last Documented On 3 9:37AM By JONELLE SOLOP-TARYN ; [facility] HYDROcodone-Acetaminophen 5- 325 MG Oral Tablet 01/02/2023 - 02/20/2023 Provider: JONELLE MOSES GREASE MAN-FPA PHOTOGRAMMETRIC STEREO COMPILER-BC 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, lumbar region One tablet twice a day as needed for severe pain Last Documented On 3 9:00AM By JONELLE ANGEL-BC ; [facility] HYDROcodone-Acetaminophen 5- 325 MG Oral Tablet 12/01/2022 - 01/02/2023 Provider: JONELLE MOSES GREASE MAN-FPA, PHOTOGRAMMETRIC STEREO COMPILER-BC 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, lumbar region One tablet twice a day as needed for severe pain Last Documented On 3 3:08PM By JONELLE ANGELTARYN ; [facility] Celecoxib 200 MG Oral Capsule 11/08/2022 - 02/13/2023 Provider: JONELLE MOSES GREASE MAN-FPA PHOTOGRAMMETRIC STEREO COMPILER-BC Diagnosis: Dorsalgia, unspe cified TAKE 1 CAPSULE BY MOUTH EVER Y MORNING WITH FOOD Last Documented On 3 8:55AM By JONELLE MOSES [facility] ; [facility] HYDROcodone-Acetaminophen 5- 325 MG Oral Tablet 10/31/2022 - 11/30/2022 Provider: JONELLE MOSES APRN-FPKaiden PHOTOGRAMMETRIC STEREO COMPILER-BC 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, lumbar region One tablet twice a day as needed for severe pain Last Documented On 3 8:43AM By JONELLE MOSES [facility] ; [facility] Valium 2 MG Oral Tablet 10/31/2022 - 02/03/2023 Provid er: JONELLE MOSES GREASE MAN- FPA, PHOTOGRAMMETRIC STEREO COMPILER-BC Diagnosis: take 1 tablet 1 hour before procedure Last Documented On 3 10:54AM By Christine DAN ; [facility] Methocarbamol 500 MG Oral Tablet 10/18/2022 - 02/02/2023 Provider: JONELLE MOSES GREASE MAN-FPA, PHOTOGRAMMETRIC STEREO COMPILER-BC Diagnosis: Dorsalgia, unspecified One tablet three times a day as needed Last Documented On 3 12:21PM By JONELLE MOSES [facility] ; [facility] Pregabalin 150 MG Oral Capsule 10/18/2022 - 02/03/2023 Provider: JONELLE MOSES GREASE MAN-FPA PHOTOGRAMMETRIC STEREO COMPILER-BC Diagnosis: Radiculopathy, l umbar region TAKE 1 CAPSULE BY MOUTH TWICE DAILY Last Documented On 3 10:59AM By JONELLE SOLOTARYN ; [facility] Celecoxib 200 MG Oral Capsule 10/12/2022 - 11/08/2022 Provider: JONELLE MOSES GREASE MAN-FPA, PHOTOGRAMMETRIC STEREO COMPILER-BC Diagnosis: Dorsalgia, unspe cified TAKE 1 CAPSULE BY MOUTH EVER Y MORNING WITH FOOD Last Documented On 3 10:31AM By JONELLE CHINO ; [facility] HYDROcodone-Acetaminophen 5- 325 MG Oral Tablet 10/04/2022 - 10/31/2022 Provider: JONELLE MOSES APRN-[place] MCFADDENP-BC 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, lumbar region One tablet twice a day as needed for severe pain Last Documented On 3 2:58PM By JONELLE CHINO ; [facility] Pregabalin 150 MG Oral Capsule 09/16/2022 - 10/18/2022 Provider: STANLEY PRESCOTT-BC Diagnosis: Radiculopathy, l umbar region TAKE 1 CAPSULE BY MOUTH TWICE DAILY Last Documented On 3 3:23PM By JONELLE CHINO ; [facility] Celecoxib 200 MG Oral Capsule 09/15/2022 - 10/12/2022 Provider: GERMANIA PRESCOTTP-BC Diagnosis: Dorsalgia, unspe cified TAKE 1 CAPSULE BY MOUTH EVER Y MORNING WITH FOOD Last Documented On 3 4:33PM By JONELLE CHINO ; [facility] HYDROcodone-Acetaminophen 5- 325 MG Oral Tablet 09/01/2022 - 10/04/2022 Provider: STANLEY PRESCOTT-BC 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, lumbar region One tablet twice a day as needed for severe pain Last Documented On 3 1:18PM By JONELLE CHINO ; [facility] Pregabalin 150 MG Oral Capsule 08/23/2022 - 09/16/2022 Provider: JONELLE GORDON PHOTOGRAMMETRIC STEREO COMPILER-BC Diagnosis: Radiculopathy, l umbar region 1 CAPSULE TWO TIMES A DAY Last Documented On 3 9:49AM By JONELLE CHINO ; [facility] Pregabalin 75 MG Oral Capsule 08/23/2022 - 10/18/2022 Provider: JONELLE MOSES GREASE MAN-FPA PHOTOGRAMMETRIC STEREO COMPILER-BC Diagnosis: Radiculopathy, l umbar region 1 capsule at bedtime for 4 d ays then increase to two times daily Last Documented On 10/18/2022 3:02PM By Janneth Burr RN ; [facility] Valium 2 MG Oral Tablet 08/05/2022 - 10/18/2022 Provider: JONELLE MOSES GREASE MAN-FPA PHOTOGRAMMETRIC STEREO COMPILER-BC 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, lumbar region take 1 tablet 1 hour prior to procedure Last Documented On 10/18/2022 3:02PM By Janneth Burr RN ; [facility] HYDROcodone-Acetaminophen 5- 325 MG Oral Tablet 08/02/2022 - 09/01/2022 Provider: JONELLE MOSES APRN-FPKaiden PHOTOGRAMMETRIC STEREO COMPILER-BC 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, lumbar region One tablet twice a day as needed for severe pain Last Documented On 3 2:53PM By JONELLE CHINO ; [facility] HYDROcodone-Acetaminophen 5- 325 MG Oral Tablet 06/27/2022 - 08/02/2022 Provider: JONELLE MOSES APRN-LESA PHOTOGRAMMETRIC STEREO COMPILER-BC 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, lumbar region One tablet twice a day as needed for severe pain Last Documented On 3 11:13AM By JONELLE CHINO ; [facility] Celecoxib 200 MG Oral Capsule 06/17/2022 - 09/15/2022 Provider: JONELLE MOSES APRN-FPKaiden PHOTOGRAMMETRIC STEREO COMPILER-BC Diagnosis: Dorsalgia, unspe cified TAKE 1 CAPSULE BY MOUTH EVER Y MORNING WITH FOOD Last Documented On 3 9:58AM By JONELLE CHINO ; [facility] Methocarbamol 500 MG Oral Tablet 06/17/2022 - 10/18/2022 Provider: JONELLE MOSES GREASE MAN-FPA PHOTOGRAMMETRIC STEREO COMPILER-BC Diagnosis: Dorsalgia, unspecified One tablet three times a day as needed Last Documented On 3 3:30PM By JONELLE CHINO ; [facility] predniSONE 20 MG Oral Tablet 06/17/2022 - 07/19/2022 Provider: MATTI PRESCOTT Diagnosis: Sacroiliitis, no t elsewhere classified take 3 tablets with breakfas t for 3 day then 2 for 3 days then 1 for 3 days then 1/2 for 2 days Last Documented On 3 3:35PM By Christine DAN ; [facility] HYDROcodone-Acetaminophen 5- 325 MG Oral Tablet 06/09/2022 - 06/27/2022 Provider: MATTI PRESCOTT 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, lumbar region One tablet daily as needed for severe pain only Last Documented On 3 12:29PM By JONELLE CHINO ; [facility] Methocarbamol 500 MG Oral Tablet 05/13/2022 - 06/17/2022 Provider: MATTI PRESCOTT Diagnosis: Dorsalgia, unspecified One tablet three times a day as needed Last Documented On 3 10:28AM By JONELLE CHINO ; [facility] HYDROcodone-Acetaminophen 5- 325 MG Oral Tablet 05/13/2022 - 06/08/2022 Provider: MATTI PRESCOTT 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, lumbar region One tablet daily as needed for severe pain only Last Documented On 3 9:13AM By JONELLE CHINO ; [facility] Valium 2 MG Oral Tablet 04/25/2022 - 08/05/2022 Provider: MATTI PRESCOTT 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, lumbar region take 1 tablet 1 hour prior to procedure Last Documented On 3 1:37PM By JONELLE CHINO ; [facility] Celecoxib 200 MG Oral Capsule 04/25/2022 - 06/17/2022 Provider: JONELLE G JOSUÉ GREASE MAN-FPA, PHOTOGRAMMETRIC STEREO COMPILER-BC Diagnosis: Dorsalgia, unspe cified TAKE 1 CAPSULE BY MOUTH EVER Y MORNING WITH FOOD Last Documented On 3 10:28AM By JONELLE ANGELTARYN ; [facility] Valium 2 MG Oral Tablet 03/22/2022 - 04/25/2022 Provider: JONELLE MOSES GREASE MAN-FPA, PHOTOGRAMMETRIC STEREO COMPILER-BC 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, lumbar region take 1 tablet 1 hour prior to procedure Last Documented On 3 11:26AM By [facility] ; [facility] HYDROcodone-Acetaminophen 5- 325 MG Oral Tablet 03/22/2022 - 05/13/2022 Provider: JONELLE MOSES APRN-FPKaiden PHOTOGRAMMETRIC STEREO COMPILER-BC 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, lumbar region One tablet daily as needed for severe pain only Last Documented On 3 10:14AM By JONELLE ANGELTARYN ; [facility] Valium 2 MG Oral Tablet 02/21/2022 - 03/22/2022 Provid er: JONELLE MOSES GREASE MAN- FPA, PHOTOGRAMMETRIC STEREO COMPILER-BC Diagnosis: take 1 tablet 1 hour prior to procedure Last Documented On 3 11:13AM By JONELLE SOLOTARYN ; [facility] HYDROcodone-Acetaminophen 5- 325 MG Oral Tablet 02/14/2022 - 03/22/2022 Provider: JONELLE MOSES GREASE MAN-FPA, PHOTOGRAMMETRIC STEREO COMPILER-BC Diagnosis: Radiculopathy, lumbar region One tablet daily as needed for severe pain only Last Documented On 3 11:13AM By JONELLE ANGELTARYN ; [facility] Celecoxib 200 MG Oral Capsule 02/11/2022 - 04/25/2022 Provider: JONELLE MOSES GREASE MAN-FPA, PHOTOGRAMMETRIC STEREO COMPILER-BC Diagnosis: Dorsalgia, unspe cified TAKE 1 CAPSULE BY MOUTH EVER Y MORNING WITH FOOD Last Documented On 3 11:26AM By JONELLE ANGELTARYN ; [facility] Celecoxib 200 MG Oral Capsule 12/16/2021 - 02/11/2022 Provider: JONELLE MOSES APRN-STANLEY MCFADDEN-BC Diagnosis: Dorsalgia, unspe cified TAKE 1 CAPSULE BY MOUTH EVER Y MORNING WITH FOOD Last Documented On 2 1:11PM By JONELLE ANGELTARYN ; [facility] HYDROcodone-Acetaminophen 5- 325 MG Oral Tablet 12/09/2021 - 02/14/2022 Provider: JONELLE GORDON PHOTOGRAMMETRIC STEREO COMPILER-BC Diagnosis: Radiculopathy, lumbar region One tablet daily as needed for severe pain only Last Documented On 2 9:01AM By JONELLE SOLOTARYN ; [facility] Celecoxib 200 MG Oral Capsule 11/04/2021 - 12/16/2021 Provider: GERMANIA PRESCOTTP-BC Diagnosis: Dorsalgia, unspe cified TAKE 1 CAPSULE BY MOUTH EVER Y MORNING WITH FOOD Last Documented On 2 10:32AM By J[facility]ELLE [facility]ES [facility] ; [facility] HYDROcodone-Acetaminophen 5- 325 MG Oral Tablet 09/30/2021 - 12/08/2021 Provider: GERMANIA PRESCOTTP-BC Diagnosis: Radiculopathy, lumbar region One tablet daily as needed for severe pain only Last Documented On 2 1:07PM By JONELLE MOSES [facility] ; [facility] Ozempic (0.25 or 0.5 MG/DOSE ) 2 MG/1.5ML Subcutaneous Solution Pen-injector 09/30/2021 - 07/19/2022 Provider: Diagnosis: 1 injection a week. Last Documented On 3 3:36PM By Christine DAN ; [facility] Celecoxib 200 MG Oral Capsule 09/30/2021 - 11/04/2021 Provider: STANLEY PRESCOTT-BC Diagnosis: Dorsalgia, unspe cified TAKE 1 CAPSULE BY MOUTH EVER Y MORNING WITH FOOD Last Documented On 2 2:30PM By JONELLE MOSES PHOTOGRAMMETRIC STEREO COMPILERTARYN ; [facility] ALPRAZolam 0.5 MG Oral Tablet 08/25/2021 - 09/30/2021 Provider: STANLEY PRESCOTT-TARYN Diagnosis: Radiculopathy, lumbar region Take approximately 45 minute s prior to scheduled procedure Last Documented On 2 9:57AM By JONELLE CHINO ; [facility] Celecoxib 200 MG Oral Capsule 08/06/2021 - 09/30/2021 Provider: MATTI PRESCOTT Diagnosis: Dorsalgia, unspe cified TAKE 1 CAPSULE BY MOUTH EVER Y MORNING WITH FOOD Last Documented On 2 9:49AM By JONELLE CHINO ; [facility] ALPRAZolam 0.5 MG Oral Tablet 08/04/2021 - 08/25/2021 Provider: MATTI PRESCOTT Diagnosis: Radiculopathy, l umbar region take 1 tablet about 40 minut es before procedure Last Documented On 2 10:41AM By Christine DAN ; [facility] HYDROcodone-Acetaminophen 5- 325 MG Oral Tablet 08/04/2021 - 09/30/2021 Provider: MATTI PRESCOTT Diagnosis: Radiculopathy, lumbar region One tablet daily as needed for severe pain only Last Documented On 2 9:49AM By JONELLE CHINO ; [facility] Rosuvastatin Calcium 5 MG Or al Tablet 06/11/2021 - 03/22/2022 Provider: DELTA SIGALA Diagnosis: Last Documented On 3 10:35AM By Christine DAN ; [facility] Ibuprofen 600 MG Oral Tablet 06/11/2021 - 08/04/2021 Félix abel: DELTA SIGALA Diagnosis: Last Documented On 2 9:40AM By JONELLE CHINO ; [facility] busPIRone HCl 10 MG Oral Tablet 06/11/2021 - 3 Provider: DELTA SIGALA Diagnosis: Last Documented On 10/18/2022 3:03PM By Janneth Burr RN ; [facility] Celecoxib 200 MG Oral Capsule 06/11/2021 - 08/06/2021 Provider: JONELLE GORDON [facility] Diagnosis: Dorsalgia, unspe cified 1 Capsule every morning with food Last Documented On 2 11:12AM By JONELLE SOLOTARYN ; [facility] amLODIPine Besylate 5 MG Ora l Tablet 06/11/2021 - 03/22/2022 Provider: DELTA SIGALA Diagnosis: Last Documented On 3 10:35AM By Christine DAN ; [facility] Acetaminophen-Codeine #3 300-30 MG Oral Tablet 06/11/2021 - 08/25/2021 Provider: JONELLE GORDON [facility] Diagnosis: Dorsalgia, unspecified one tablet as needed one to two times daily for SEVERE pain ONLY Last Documented On 2 10:41AM By Christine DAN ; [facility] Baclofen 20 MG Oral Tablet 06/11/2021 - 02/14/2022 Pro vider: DELTA SIGALA Diagnosis: Last Documented On 2 8:46AM By JONELLE MOSES [facility] ; [facility] Losartan Potassium-HCTZ 100- 12.5 MG Oral Tablet 06/11/2021 - 08/23/2022 Provider: DELTA SIGALA Diagnosis: Last Documented On 3 3:35PM By Christine DAN ; [facility] Medications Administered Includes: Administered Medications in patient's chart No Administered Medications Recorded Results Includes: Results from 06/25/2023 through 06/24/2024 No Results Recorded For Specified Dates History of Present Illness History of Present Illness not supported for this document type No History of Present Illness Recorded Social History Description Last Updated Tobacco non-user 06/11/2021 Last Documented On 2 9:59AM ; [facility] Difficulty walking 06/11/2021 Last Documented On 2 9:59AM ; [facility] Smoking Status Unknown Procedures and Surgical History Surgical History Last Updated No Pacemaker 06/11/2021 Last Documented On 2 9:59AM ; [facility] Surgical / procedural history Over 20 yr s ago 06/11/2021 Last Documented On 2 9:59AM ; [facility] Medical History Includes: Medical History in patient's chart Description Last Updated Surgical / procedural history L5-S1 Lumb ar Fusion 01/30/[address] Qiuntanilla 02/03/2023 Last Documented On 3 11:08AM ; [facility] Denies a fear of falling. 07/08/2021 Last Documented On 2 11:49AM ; [facility] Has had no fall in the last 12 months. 0 07/08/2021 Last Documented On 2 11:49AM ; [facility] Currently wearing eyeglasses 06/11/2021 Last Documented On 2 9:59AM ; [facility] No Pain Pump 06/11/2021 Last Documented On 2 9:59AM ; [facility] No Spinal cord stimulator 06/11/2021 Last Documented On 2 9:59AM ; [facility] Physical therapy 06/11/2021 Last Documented On 2 9:59AM ; [facility] Please list all illnesses/co nditions you have been diagnosed with: Anxiety/panic attacks, high blood pressure, high colest 06/11/2021 Last Documented On 2 9:59AM ; [facility] Please list all surgeries: L eft Knee surgery for torn miniscus in 1998. hiatal hernia repair in October 2013 and again in June 2017 06/11/2021 Last Documented On 2 9:59AM ; [facility] Family History Includes: Family History in patient's chart Description Last Updated Family history of Arthritis 06/11/2021 Last Documented On 2 9:59AM ; [facility] Paternal history of reported family hist ory of seizures 06/11/2021 Last Documented On 2 9:59AM ; [facility] Review of Systems Review of Systems not supported for this document type No Review of Systems Recorded Mental Status No Mental Status Recorded Functional Status No Functional Status Recorded Physical Exam Physical Exam not supported for this document type No Physical Exam Recorded Allergies Includes: Active, inactive, and resolved Allergies Substance Type Reaction Onset Date Resolved Date Statu s Shellfish Allergy 06/11/2021 Active Last Documented On 3 3:05PM ; [facility] Meloxicam Allergy 06/11/2021 Active Last Documented On 3 3:05PM ; [facility] Lamotrigine Allergy 06/11/2021 Active Last Documented On 3 3:05PM ; [facility] LaMICtal Allergy Skin Rashes / Eruption of skin 2 Active Last Documented On 3 3:05PM ; [facility] Iodine Allergy Skin Rashes / Eruption of skin 2 Active Last Documented On 3 3:05PM ; [facility] Insurance Includes: Active Insurance Policies Plan Name Member ID Group # Subscriber Relationship Effect jad Dates 1 - [facility] [id number] JOHNATHON FLORES Se lf Clinical Notes Includes: Signed Clinical Notes starting from 03/25/2022 No Clinical Notes Recorded
--- OUTSIDE RECORDS SUMMARY | 2024-06-24 18:22 | XMS_ITS | Clinical Summary ---
Author Organization [facility] Address [address] [address] Care Team Providers Care Cloth Finishing Range Back Tender Name Role Phone Yanet Otoole MD Primary Care Provider [phone] Source Comments [facility]non-owned Affiliates and Associated Physician Practices is amultiple site organization consisting of ambulatory clinics and hospital sitesin [place], [place], [place] and [place]. This disclosure is being madepursuant to the Care Everywhere program and may not contain all information available regarding this patient. Last updated 17.[facility] Allergies Active Allergy Reactions Criticality Noted Date Comments Fish Allergy Rash Medium 04/06/2017 Iodine Anaphylaxis,Rash High Lamotrigine Skin Reactions,Itching,Rash Medium Meloxicam Other 06/11/2021 Shellfish Anaphylaxis High 06/11/2021 Medications * Be aware that medications may not be up to date on this document. Alwaysverify current medications with the patient. albuterol HFA (VENTOLIN HFA) 108 (90 BASE) MCG/ACT inhaler 02/25/20 17 Active citalopram (CELEXA) 40 MG tablet 03/15/19 18 Active buPROPion XL 24hr (Wellbutrin-XL) 150 MG tablet Take 1 (one) tablet by mouth once daily 11/09/19 23 Active methocarbamol (Robaxin) 500 MG tablet Take 1 (one) tablet by mouth 3 times daily as needed 10/19/19 23 Active pregabalin (Lyrica) 150 MG capsule Take 1 (one) capsule by mouth 2 times daily 10/23/19 23 Active losartan-hydroCHL OROthiazide (Hyzaar) 100-12.5 MG tablet Take 1 (one) tablet by mouth once daily Active acetaminophen (Tylenol) 500 MG tablet Take 2 (two) tablets by mouth every 6 hours Maximum allowable Acetaminophen amount = 4 Grams (4000 mg) / 24 hours. 02/01/20 Active senna-docusate (Senokot-S) 8.6-50 MG tablet Take 1 (one) tablet by mouth once daily 30 tablet 02/01/20 23 Active polyethylene glycol 3350 (Miralax) 17 g packet Take 17 (seventeen) g by mouth once daily 02/02/20 23 Active oxyCODONE, immediate release, (Roxicodone) 5 MG tabletIndications :Lumbar radiculopathy Take 1 (one) tablet by mouth every 4 hours as needed for Pain 42 tablet 02/01/20 23 Active HYDROcodone-aceta minophen ([place]) 5-325 MG tabletIndications :Pain Take 1 (one) tablet by mouth every 6 hours as needed for Pain 21 tablet 02/08/20 23 Active spironolactone (Aldactone) 25 MG tablet Take 1 (one) tablet by mouth once daily 04/18/19 24 Active Active Problems Problem Noted Date Diagnosed Date Lumbar radiculopathy 01/30/2023 Family History Medical History Relation Name Comments Diabetes - Type 2 Father Status: De ceased Cancer - Other Mother Status: Alive Relation Name Status Comments Father Mother Social History Tobacco Use Types Packs/Day Years Used Date Smoking Tobacco: Never Smokeless Tobacco: Never Alcohol Use Standard Drinks/Week Comments Yes 0 (1 standard drink = 0.6 oz pur e alcohol) Comments Unknown Sex and Gender Information Value Date Recorded Sex Assigned at Not on file Legal Sex Female 5:54 AM [employer] Gender Identity Not on file Sexual Orientation Not on file Last Filed Vital Signs Vital Sign Reading Time Taken Comments Blood Pressure 141/78 01/31/2023 12:15 PM [employer] Pulse 68 01/31/2023 12:15 PM [employer] Temperature 36.7 C (98 F) 01/31/2023 12:15 PM [employer] Respiratory Rate 16 01/31/2023 12:15 PM [employer] [facility] Oxygen Saturation 95% 01/31/2023 12:15 PM [employer] Inhaled Oxygen Concentration - - Weight 97.3 kg (214 lb 9.6 oz) 04/26/2023 10:30 AM [employer] Height 175.3 cm (5' 9 ) 04/26/2023 10:30 AM [employer] Body Mass Index 31.69 04/26/2023 10:30 AM [employer] Plan of Treatment Health Maintenance Due Date Last Done Comments COLOGUARD (AGES 45-75) - COL ON CA SCREENING 1972 COLON MONITORING 1972 COLONOSCOPY - COLON CA SCREENING 1972 CT COLONOGRAPHY - COLON CA SCREENING 1972 Colorectal Cancer Screening 1972 FIT - COLON CA SCREENING 1972 FLEX SIG - COLON CA SCREENING 1972 LIPID TESTING 1972 MAMMOGRAM 1972 PAP SMEAR 1972 HIV SCREENING 09/26/1987 HEPATITIS C SCREENING 09/21/1990 DTAP/TDAP/TD VACCINES (1 - Tdap) 09/26/1991 HEPATITIS B VACCINE (1 of 3 - 19+ 3-dose series) 09/26/1991 PNEUMOCOCCAL VACCINE 50+ (1 of 1 - PCV) 2022 ZOSTER VACCINE (1 of 2) 2022 COVID-19 VACCINE (1 - 2023-2 5 season) 2023 DEPRESSION SCREENING 03/06/2024 INFLUENZA VACCINE (Season Ended) 2024 SCREENING FOR DIABETES 01/31/2026 3, 01/17/2023 HIB VACCINE Aged Out No longer eligi ble based on patient's age to complete this topic HPV VACCINE Aged Out No longer eligi ble based on patient's age to complete this topic MENINGOCOCCAL (Group B) VACCINE SHARED DECISION-MAKING Aged Out No longer eligible based on patient's age to complete this topic MENINGOCOCCAL GROUPS A/C/Y/W VACCINE Aged Out No longer eligible b ased on patient's age to complete this topic Medical Devices Implanted Type Area Hairpiece Stylist Device Identifier Shelf Expiration Date Model / Serial / Lot Graft Bone Accell Evo3 Dbm 5ml Ptty - [id number] Implanted:Qty: 1 on 01/30/2023 by Devonte Easton MD at [facility] [employer] 11/01/2023 [id number] / [id number] / [id number] Hedron Ia Spacer Implanted:Qty: 1 on 01/30/2023 by Devonte Easton MD at [facility] [id number] 10/19/2031 [id number] / / [id number] Screws Implanted:Qty: 3 on 01/30/2023 by Devonte Easton MD at [facility] N/A: Back [id number] / / Procedures Procedure Name Priority Date/Time Associated Diagnosis Comments BASIC METABOLIC PANEL (CALCIUM TOTAL) Routine 01/31/2023 1:26 AM [employer] from Last 3 Months or Most Recently Relevant to Health Maintenance Results * BASIC METABOLIC PANEL (CALCIUM TOTAL) (01/31/2023 1:26 AM [employer]) BUN 9 7 - 26 mg/dL 01/31/2023 2:05 AM [facility] Creatinine 0.61 0.56 - 0.96 mg/dL 01/31/2023 2:05 AM [facility] Sodium 139 136 - 145 mmol/L 01/31/2023 2:05 AM [facility] Potassium 3.5 3.5 - 4.5 mmol/L 01/31/2023 2:05 AM [facility] Chloride 102 98 - 107 mmol/L 01/31/2023 2:05 AM [facility] CO2 29 22 - 29 mmol/L 01/31/2023 2:05 AM [facility] Glucose 91 70 - 115 mg/dL 01/31/2023 2:05 AM [facility] Calcium 8.7 8.4 - 10.2 mg/dL 01/31/2023 2:05 AM [facility] Anion Gap 8 6 - 16 01/31/2023 2:05 AM [facility] BUN/Creatinine Ratio 15 7 - 23 01/31/2023 2:05 AM [facility] Osmolality Calculated 286 275 - 295 mOsm/kg 01/31/2023 2:05 AM [facility] eGFR by CKD-EPI >90 >=90 mL/min/1.7 3 m2 01/31/2023 2:05 AM [facility] Blood BLOOD SPECIMEN / Unknown Lab Venipuncture / Unknown 01/31/2023 1:26 AM [employer] [facility] 01/31/2023 1:34 AM [employer] [facility] Devonte Easton MD LAB - CHEMISTRY ORDERABLES Final Result [facility] [address] [place] [address], [facility] [phone] from Last 3 Months or Most Recently Relevant to Health Maintenance Insurance [facility] MEDICAID [place] [facility] Advance Directives * Full Code (Latest Code Status on File) Date Activated Date Inactivated Comments 01/30/2023 10:01 AM 01/31/2023 5:34 PM Care Teams Cloth Finishing Range Back Tender Relationship Specialty Start Date End Date Yanet Otoole MD [address] [place] [address] PCP - General 03/29/17
--- OUTSIDE RECORDS SUMMARY | 2024-06-24 18:22 | XMS_ITS | Clinical Summary ---
Author Organization [facility] Address [address] [place] [id number] Phone Care Team Providers Care Career Development Associate Name Role Phone JI SIGALAPARDEEP Primary Care Provider [phone] Reason for Visit and Chief Complaint RX ISSUE/REFILL Problems Includes: Problems addressed during this encounter and other active Problems All Visits Onset Date Resolved Date Provider Condition S tatus Depression Unknown JONELLE MOSES PUMP PRESS OPERATOR-FPA, DRAPERY COUNSELOR-BC Active Last Documented On 2 9:23AM ; [facility] Anxiety Disorder Nos Unknown JONELLE MOSES PUMP PRESS OPERATOR-FPA, DRAPERY COUNSELOR-BC Active Last Documented On 2 9:23AM ; [facility] Hyperlipidemia Unknown JONELLE MOSES PUMP PRESS OPERATOR-F PA, DRAPERY COUNSELOR-BC Active Last Documented On 2 9:23AM ; [facility] Essential Hypertension Unknown JONELLE PATTERSONL P PUMP PRESS OPERATOR-FPA, DRAPERY COUNSELOR-BC Active Last Documented On 2 9:22AM ; [facility] Plan of Treatment No Plan of Treatment Recorded Assessments Includes: Assessments from this encounter No Assessments Recorded Medical Equipment - Implanted Devices Includes: Current Devices No Medical Equipment Recorded Medications Includes: Medications discussed during this encounter and other current Medications Discontinued / Stopped on this date JONELLE MOSES PUMP PRESS OPERATOR-FPKaiden DRAPERY COUNSELOR-BC on 12/01/2022 HYDROcodone-Acetaminophen 5- 325 MG Oral Tablet Provider: JONELLE GORDON DRAPERY COUNSELOR-BC 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, lumbar region Last Documented On 3 3:08PM By JONELLE ANGEL-BC ; [facility] New / Renewed during this visit MATTI PRESCOTT on 01/02/2023 HYDROcodone-Acetaminophen 5- 325 MG Oral Tablet Provider: MATTI PRESCOTT 30 day supply: 60 tablet, 0 refills 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, lumbar region One tablet twice a day as ne eded for severe pain Pharmacy: Patricia [facility] ([facility] [address] [facility], [phone] - Last Documented On 3 9:00AM By JONELLE CHINO ; [facility] Current Medications (continue as prescribed) Pregabalin 150 MG Oral Capsule 05/15/2023 Provider: MATTI WELCH Diagnosis: Radiculopathy, l umbar region TAKE 1 CAPSULE BY MOUTH TWICE DAILY Last Documented On 4 1:13PM By JONELLE CHINO ; [facility] HYDROcodone-Acetaminophen 5- 325 MG Oral Tablet 02/21/2023 Provider: MATTI PRESCOTT 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, lumbar region One tablet twice a day as ne eded for severe pain Last Documented On 3 9:13AM By JONELLE CHINO ; [facility] Methocarbamol 500 MG Oral Tablet 02/02/2023 Provider: MATTI PRESCOTT Diagnosis: Dorsalgia, unspe cified TAKE 1 TABLET BY MOUTH THREE TIMES DAILY NEEDED Last Documented On 3 11:05AM By JONELLE CHINO ; [facility] buPROPion HCl ER (XL) 150 MG Oral Tablet Extended Release 24 Hour 10/18/2022 Provider: Diagnosis: once a day Last Documented On 3 3:22PM By JONELLE CHINO ; [facility] Citalopram Hydrobromide 40 MG Oral Tablet 06/11/2021 Provider: DELTA SIGALA Diagnosis: Last Documented On 2 9:58AM By JONELLE CHINO ; [facility] Albuterol Sulfate HFA 108 (9 0 Base) MCG/ACT Inhalation Aerosol Solution 06/11/2021 Provider: DELTA RAMSEY Diagnosis: Last Documented On 2 9:58AM By JONELLE CHINO ; [facility] Medications Administered Includes: Administered Medications from this encounter No Administered Medications Recorded Results Includes: Results discussed during this encounter No Results Recorded For Specified Dates History of Present Illness Includes: History of Present Illness from this encounter No History of Present Illness Recorded Social History Description Last Updated Tobacco non-user 06/11/2021 Last Documented On 3 1:26PM ; [facility] Difficulty walking 06/11/2021 Last Documented On 3 1:26PM ; [facility] Smoking Status Unknown Procedures and Surgical History Surgical History Last Updated No Pacemaker 06/11/2021 Last Documented On 3 1:26PM ; [facility] Surgical / procedural history Over 20 yr s ago 06/11/2021 Last Documented On 3 1:26PM ; [facility] Medical History Includes: Medical History addressed during this encounter Description Last Updated Denies a fear of falling. 07/08/2021 Last Documented On 3 1:26PM ; [facility] Has had no fall in the last 12 months. 0 07/08/2021 Last Documented On 3 1:26PM ; [facility] Currently wearing eyeglasses 06/11/2021 Last Documented On 3 1:26PM ; [facility] No Pain Pump 06/11/2021 Last Documented On 3 1:26PM ; [facility] No Spinal cord stimulator 06/11/2021 Last Documented On 3 1:26PM ; [facility] Physical therapy 06/11/2021 Last Documented On 3 1:26PM ; [facility] Please list all illnesses/co nditions you have been diagnosed with: Anxiety/panic attacks, high blood pressure, high colest 06/11/2021 Last Documented On 3 1:26PM ; [facility] Please list all surgeries: L eft Knee surgery for torn miniscus in 1998. hiatal hernia repair in October 2013 and again in June 2017 06/11/2021 Last Documented On 3 1:26PM ; [facility] Family History Includes: Family History addressed during this encounter Description Last Updated Family history of Arthritis 06/11/2021 Last Documented On 3 1:26PM ; [facility] Paternal history of reported family hist ory of seizures 06/11/2021 Last Documented On 3 1:26PM ; [facility] Review of Systems Includes: Review of Systems [...] Active Last Documented On 3 3:05PM ; [facility] Meloxicam Allergy 06/11/2021 Active Last Documented On 3 3:05PM ; [facility] Lamotrigine Allergy 06/11/2021 Active Last Documented On 3 3:05PM ; [facility] LaMICtal Allergy Skin Rashes / Eruption of skin 2 Active Last Documented On 3 3:05PM ; [facility] Iodine Allergy Skin Rashes / Eruption of skin 2 Active Last Documented On 3 3:05PM ; [facility] Encounters Encounter Provider Location Date Check-In Time Check-Out Time Diagnosis RX ISSUE/REFILL JONELLE MOSES PUMP PRESS OPERATOR-FPA, DRAPERY COUNSELOR-BC 01/02/2023 1:26PM 11:59PM Insurance Includes: Active Insurance Policies Plan Name Member ID Group # Subscriber Relationship Effect jad Dates 1 - [facility] [id number] JOHNATHON FLORES Se lf Clinical Notes Includes: Clinical Notes from this encounter * Progress note Date Encounter Last Documented by 01/02/2023 RX ISSUE/REFILL Last documented on 01/02/2023; 3:08 PM, JONELLE MOSES PUMP PRESS OPERATOR-FPA, DRAPERY COUNSELOR-BC; [facility] Active Problems & Conditions - Anxiety Disorder Nos - Depression - Essential Hypertension - Hyperlipidemia Chief Complaint Phone Call - Chief Concern: Reason for call:RX REFILL Patient is requesting a refill on HYDROCODONE 5/325 ~How is medication taken? BID ~How many are left?8 Risk Assessment Score: LOW ~[place]:12/02/22 Last Office Visit: 10/18/22 ~ pt phone # for Return call: [phone] ~Last Drug Screen:10/18/22 ~Date/Initials: 01/02/23 CB. Current [...]
--- OUTSIDE RECORDS SUMMARY | 2024-06-24 18:22 | XMS_ITS | Clinical Summary ---
Author Organization [facility] Address [address] [place] [phone] Phone Care Team Providers Care Lead Solutions Architect Name Role Phone DELTA SIGALA Primary Care Provider [phone] Reason for Visit and Chief Complaint * PHONE CALL Problems Includes: Problems addressed during this encounter and other active Problems All Visits Onset Date Resolved Date Provider Condition S tatus Depression Unknown JONELLE MOSES JOINT CUTTER-FPA, CLINIC ASSISTANT-BC Active Last Documented On 2 9:23AM ; [facility] Anxiety Disorder Nos Unknown JONELLE PATTERSONLP JOINT CUTTER-FPA, CLINIC ASSISTANT-BC Active Last Documented On 2 9:23AM ; [facility] Hyperlipidemia Unknown JONELLE MOSES JOINT CUTTER-F PA, CLINIC ASSISTANT-BC Active Last Documented On 2 9:23AM ; [facility] Essential Hypertension Unknown JONELLE PATTERSONL P JOINT CUTTER-FPA, CLINIC ASSISTANT-BC Active Last Documented On 2 9:22AM ; [facility] Plan of Treatment No Plan of Treatment Recorded Assessments Includes: Assessments from this encounter No Assessments Recorded Medical Equipment - Implanted Devices Includes: Current Devices No Medical Equipment Recorded Medications Includes: Medications discussed during this encounter and other current Medications Current Medications (continue as prescribed) Pregabalin 150 MG Oral Capsule 05/15/2023 Provider: JONELLE MCFADDEN CLINIC ASSISTANT-BC Diagnosis: Radiculopathy, l umbar region TAKE 1 CAPSULE BY MOUTH TWICE DAILY Last Documented On 4 1:13PM By JONELLE SOLOP-BC ; [facility] HYDROcodone-Acetaminophen 5- 325 MG Oral Tablet 02/21/2023 Provider: MATTI PRESCOTT 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, lumbar region One tablet twice a day as ne eded for severe pain Last Documented On 3 9:13AM By JONELLE CHINO ; [facility] Methocarbamol 500 MG Oral Tablet 02/02/2023 Provider: MATTI PRESCOTT Diagnosis: Dorsalgia, unspe cified TAKE 1 TABLET BY MOUTH THREE TIMES DAILY NEEDED Last Documented On 3 11:05AM By JONELLE CHINO ; [facility] buPROPion HCl ER (XL) 150 MG Oral Tablet Extended Release 24 Hour 10/18/2022 Provider: Diagnosis: once a day Last Documented On 3 3:22PM By JONELLE CHINO ; [facility] Citalopram Hydrobromide 40 MG Oral Tablet 06/11/2021 Provider: DELTA SIGALA Diagnosis: Last Documented On 2 9:58AM By JONELLE CHINO ; [facility] Albuterol Sulfate HFA 108 (9 0 Base) MCG/ACT Inhalation Aerosol Solution 06/11/2021 Provider: DELTA RAMSEY Diagnosis: Last Documented On 2 9:58AM By JONELLE CHINO ; [facility] Medications Administered Includes: Administered Medications from this encounter No Administered Medications Recorded Results Includes: Results discussed during this encounter No Results Recorded For Specified Dates History of Present Illness Includes: History of Present Illness from this encounter No History of Present Illness Recorded Social History No Social History Recorded - Smoking Status Unknown Medical History Includes: Medical History addressed during this encounter No Medical History Recorded Family History Includes: Family History addressed during this encounter No Family History Recorded Review of Systems Includes: Review of Systems [...] Active Last Documented On 3 3:05PM ; [facility] Meloxicam Allergy 06/11/2021 Active Last Documented On 3 3:05PM ; [facility] Lamotrigine Allergy 06/11/2021 Active Last Documented On 3 3:05PM ; [facility] LaMICtal Allergy Skin Rashes / Eruption of skin 2 Active Last Documented On 3 3:05PM ; [facility] Iodine Allergy Skin Rashes / Eruption of skin 2 Active Last Documented On 3 3:05PM ; [facility] Encounters Encounter Provider Location Date Check-In Time Check-Out Time Diagnosis * PHONE CALL JONELLE Lopez JOSUÉ JOINT CUTTER-FPA, CLINIC ASSISTANT-BC 05/16/2023 2:42PM 11:59PM Insurance Includes: Active Insurance Policies Plan Name Member ID Group # Subscriber Relationship Effect jad Dates 1 - [facility] [id number] JOHNATHON FLORES Se lf Clinical Notes Includes: Clinical Notes from this encounter No Clinical Notes Recorded
--- OUTSIDE RECORDS SUMMARY | 2024-06-24 18:22 | XMS_ITS ---
Author Organization [facility] Address [address] [place] [address] Phone Care Team Providers Care Circulation Librarian Name Role Phone JI SIGALAPARDEEP Primary Care Provider [phone] Problems Includes: Active, inactive, and resolved Problems All Visits Onset Date Resolved Date Provider Condition S tatus Depression Unknown JONELLE G JOSUÉ MAINTENANCE AND REPAIR WORKER-FPA, 1ST GRADE TEACHER-BC Active Last Documented On 2 9:23AM ; [facility] Anxiety Disorder Nos Unknown JONELLE G JOSUÉ MAINTENANCE AND REPAIR WORKER-FPA, 1ST GRADE TEACHER-BC Active Last Documented On 2 9:23AM ; [facility] Hyperlipidemia Unknown JONELLE G JOSUÉ MAINTENANCE AND REPAIR WORKER-F PA, 1ST GRADE TEACHER-BC Active Last Documented On 2 9:23AM ; [facility] Essential Hypertension Unknown JONELLE G KUL P MAINTENANCE AND REPAIR WORKER-FPA, 1ST GRADE TEACHER-BC Active Last Documented On 2 9:22AM ; [facility] Plan of Treatment Referrals To Diagnosis Pain Management [address] [address] - Sacroiliitis, not elsewhere classified Note: consent for L SI joint steroid injection under fluoroscopyNo need to hold NSAIDs/ASA Last Documented On 2 11:34AM ; [facility] Pain Management [address] [address] - Radiculopathy, lumbar region Note: consent for bilateral L5-S1 transforaminal epidural steroid injection under fluoroscopyNo need to hold NSAIDs/ASA Last Documented On 2 12:04PM ; [facility] Pain Management [address] [address] - Radiculopathy, lumbar region Note: consent for repeat nikita ateral L5-S1 transforaminal epidural steroid injection under fluoroscopyNo need to hold NSAIDs/ASA Last Documented On 2 1:35PM ; [facility] Orthopedic [facility] - [address] [place] [address] Radiculopathy, lumbar region Note: Needs Orthopedic or Ne uro Surgery evaluation for her chronic low back and radicular pain. See previous chart notes. Last Documented On 4 8:21AM ; [facility] Pain Management [address] [address] - Radiculopathy, lumbar region Note: consent for bilateral L5-S1 Transforaminal epidural steroid injection under fluoroscopy Last Documented On 2 10:29AM ; [facility] Pain Management [address] [address] - Spondylosis w/o myelopathy or radiculopathy, lumbar region Note: consent for bilateral L3, L4, L5 medial branch blocks under fluoroscopy [levels L4-5 and L5-S1] Last Documented On 3 11:24AM ; [facility] Pain Management [address] [address] - Spondylosis w/o myelopathy or radiculopathy, lumbar region Note: consent for confirmato ry bilateral L3, L4, L5 medial branch blocks under fluoroscopy [levels L4-5 and L5-S1] Last Documented On 3 2:22PM ; [facility] Pain Management [address] [address] - Spondylosis w/o myelopathy or radiculopathy, lumbar region Note: consent for Right L3, L4, L5 medial branch thermal RFA under fluoroscopy [#1 of 2]Left L3, L4, L5 medial branch thermal RFA under fluoroscopy [#2 of 2] Last Documented On 3 2:22PM ; [facility] Orthopedic [facility] - [address] [place] [address] Radiculopathy, lumbar region Note: w/ Dr Quintanilla Last Documented On 4 11:47AM ; [facility] Instructions to patient Intervention and counseling on cessation of tobacco use : Patient recieved smoking cessation handout Last Documented On 2 10:40AM ; [facility] Education and Decision Aids were provided during visit for: Lifestyle education Last Documented On 3 10:53AM ; [facility] Pill Count: OXYCODONE FROM Shahab QUINTANILLA ~Hydrocodone about 1 weeks worth left Last Documented On 3 11:01AM ; [facility] Lifestyle education Last Documented On 3 2:55PM ; [facility] Pill Count: 35 Appropriate H ydrocodone: Last Documented On 3 3:01PM ; [facility] Lifestyle education Last Documented On 3 3:30PM ; [facility] Pill Count: 20 Hydrocodone: Last Documented On 3 3:35PM ; [facility] Lifestyle education Last Documented On 3 3:30PM ; [facility] Pill Count: 27 Hydrocodone: Last Documented On 3 3:35PM ; [facility] Lifestyle education Last Documented On 3 9:34AM ; [facility] Pill Count: 22 Hydrocodone: Last Documented On 3 9:44AM ; [facility] Pill Count: Patient did not bring pain medication to appointment for pill count, per policy. Advised in order to continue to safely prescribe opioids, medication must be brought to each appointment Last Documented On 3 9:34AM ; [facility] Lifestyle education Last Documented On 3 9:50AM ; [facility] Pill Count: Hydrocodone: Last Documented On 3 9:54AM ; [facility] Pill Count: Patient did not bring pain medication to appointment for pill count, per policy. Advised in order to continue to safely prescribe opioids, medication must be brought to each appointment Last Documented On 3 9:54AM ; [facility] Lifestyle education Last Documented On 3 10:43AM ; [facility] Pill Count: twelve Hydrocodo ne: Last Documented On 3 11:00AM ; [facility] Lifestyle education Last Documented On 3 10:30AM ; [facility] Pill Count: Hydrocodone: DID not bring Last Documented On 3 11:13AM ; [facility] Lifestyle education Last Documented On 2 8:33AM ; [facility] Pill Count: 0.5 HYDROCODONE Last Documented On 2 8:37AM ; [facility] Lifestyle education Last Documented On 2 8:57AM ; [facility] Pill Count: 0 HYDROCODONE Last Documented On 2 9:02AM ; [facility] Lifestyle education Last Documented On 2 10:35AM ; [facility] Pill Count: 20 HYDROCODONE Last Documented On 2 10:40AM ; [facility] Lifestyle education Last Documented On 2 9:11AM ; [facility] Lifestyle education Last Documented On 2 11:07AM ; [facility] Pill Count: ten aCETAMINOPHE N-CODEINE 3 Last Documented On 2 11:20AM ; [facility] Lifestyle education Last Documented On 2 9:51AM ; [facility] Assessments Includes: Assessments for all patient encounters Findings Encounter Date Chronic pain syndrome TELEHEALTH with JONELLE Jessica MOSES MAINTENANCE AND REPAIR WORKER-FPA, 1ST GRADE TEACHER-BC 02/03/2023 Last Documented On 3 11:08AM ; [facility] DORSALGIA TELEHEALTH with JONELLE MOSES A PRN-FPKaiden, 1ST GRADE TEACHER-BC 02/03/2023 Last Documented On 3 11:08AM ; [facility] Intervertebral disc degeneration [facility] with JONELLE MOSES MAINTENANCE AND REPAIR WORKER-FPA, 1ST GRADE TEACHER-BC 02/03/2023 Last Documented On 3 11:08AM ; [facility] Lumbar radiculopathy TELEHEALTH with JONELLE FENGP MAINTENANCE AND REPAIR WORKER-FPA, 1ST GRADE TEACHER-BC 02/03/2023 Last Documented On 3 11:08AM ; [facility] Lumbar spondylosis without m yelopathy or radiculopathy TELEHEALTH with JONELLE PATTERSONLP MAINTENANCE AND REPAIR WORKER-FPA, 1ST GRADE TEACHER-BC 02/03/2023 Last Documented On 3 11:08AM ; [facility] Sacroiliitis TELEHEALTH with JONELLE PATTERSONLP A PRN-FPA, 1ST GRADE TEACHER-BC 02/03/2023 Last Documented On 3 11:08AM ; [facility] Chronic pain syndrome PAIN MANAGEMENT FO LLOW UP with JONELLE Lopez JOSUÉ MAINTENANCE AND REPAIR WORKER-FPA, 1ST GRADE TEACHER-BC 10/18/2022 Last Documented On 3 3:32PM ; [facility] DORSALGIA PAIN MANAGEMENT FOLLOW UP with Jacob Lopez JOSUÉ MAINTENANCE AND REPAIR WORKER-FPA, 1ST GRADE TEACHER-BC 10/18/2022 Last Documented On 3 3:32PM ; [facility] Intervertebral disc degeneration PAIN MA NAGEMENT FOLLOW UP with JONELLE Lopez JOSUÉ MAINTENANCE AND REPAIR WORKER-FPA, 1ST GRADE TEACHER-BC 10/18/2022 Last Documented On 3 3:32PM ; [facility] Lumbar radiculopathy PAIN MANAGEMENT FOL LOW UP with JONELLE PATTERSONLP MAINTENANCE AND REPAIR WORKER-FPA, 1ST GRADE TEACHER-BC 10/18/2022 Last Documented On 3 3:32PM ; [facility] Lumbar spondylosis without m yelopathy or radiculopathy PAIN MANAGEMENT FOLLOW UP with JONELLE Lopez JOSUÉ MAINTENANCE AND REPAIR WORKER-FPA, 1ST GRADE TEACHER-BC 10/18/2022 Last Documented On 3 3:32PM ; [facility] Sacroiliitis PAIN MANAGEMENT FOLL OW UP with JONELLE Jessica JOSUÉ MAINTENANCE AND REPAIR WORKER-FPA, 1ST GRADE TEACHER-BC 10/18/2022 Last Documented On 3 3:32PM ; [facility] Chronic pain syndrome PAIN MANAGEMENT FO LLOW UP with JONELLE Jessica JOSUÉ MAINTENANCE AND REPAIR WORKER-FPA, 1ST GRADE TEACHER-BC 08/23/2022 Last Documented On 3 3:54PM ; [facility] DORSALGIA PAIN MANAGEMENT FOLLOW UP with M ANISHA Lopez JOSUÉ MAINTENANCE AND REPAIR WORKER-FPA, 1ST GRADE TEACHER-BC 08/23/2022 Last Documented On 3 3:54PM ; [facility] Intervertebral disc degeneration PAIN MA NAGEMENT FOLLOW UP with JONELLE G JOSUÉ MAINTENANCE AND REPAIR WORKER-FPA, 1ST GRADE TEACHER-BC 08/23/2022 Last Documented On 3 3:54PM ; [facility] Lumbar radiculopathy PAIN MANAGEMENT FOL LOW UP with JONELLE G JOSUÉ MAINTENANCE AND REPAIR WORKER-FPA, 1ST GRADE TEACHER-BC 08/23/2022 Last Documented On 3 3:54PM ; [facility] Lumbar spondylosis without m yelopathy or radiculopathy PAIN MANAGEMENT FOLLOW UP with JONELLE G JOSUÉ MAINTENANCE AND REPAIR WORKER-FPA, 1ST GRADE TEACHER-BC 08/23/2022 Last Documented On 3 3:54PM ; [facility] Sacroiliitis PAIN MANAGEMENT FOLL OW UP with JONELLE G JOSUÉ MAINTENANCE AND REPAIR WORKER-FPA, 1ST GRADE TEACHER-BC 08/23/2022 Last Documented On 3 3:54PM ; [facility] Chronic pain syndrome PAIN MANAGEMENT FO LLOW UP with JONELLE G JOSUÉ MAINTENANCE AND REPAIR WORKER-FPA, 1ST GRADE TEACHER-BC 07/19/2022 Last Documented On 3 3:53PM ; [facility] DORSALGIA PAIN MANAGEMENT FOLLOW UP with M ANISHA G JOSUÉ MAINTENANCE AND REPAIR WORKER-FPA, 1ST GRADE TEACHER-BC 07/19/2022 Last Documented On 3 3:53PM ; [facility] Intervertebral disc degeneration PAIN MA NAGEMENT FOLLOW UP with JONELLE G JOSUÉ MAINTENANCE AND REPAIR WORKER-FPA, 1ST GRADE TEACHER-BC 07/19/2022 Last Documented On 3 3:53PM ; [facility] Lumbar radiculopathy PAIN MANAGEMENT FOL LOW UP with JONELLE G JOSUÉ MAINTENANCE AND REPAIR WORKER-FPA, 1ST GRADE TEACHER-BC 07/19/2022 Last Documented On 3 3:53PM ; [facility] Lumbar spondylosis without m yelopathy or radiculopathy PAIN MANAGEMENT FOLLOW UP with JONELLE G JOSUÉ MAINTENANCE AND REPAIR WORKER-FPA, 1ST GRADE TEACHER-BC 07/19/2022 Last Documented On 3 3:53PM ; [facility] Sacroiliitis PAIN MANAGEMENT FOLL OW UP with JONELLE G JOSUÉ MAINTENANCE AND REPAIR WORKER-FPA, 1ST GRADE TEACHER-BC 07/19/2022 Last Documented On 3 3:53PM ; [facility] Chronic pain syndrome PAIN MANAGEMENT FO LLOW UP with JONELLE G JOSUÉ MAINTENANCE AND REPAIR WORKER-FPA, 1ST GRADE TEACHER-BC 06/17/2022 Last Documented On 3 12:24PM ; [facility] DORSALGIA PAIN MANAGEMENT FOLLOW UP with Jacob LANCASTER Jessica JOSUÉ MAINTENANCE AND REPAIR WORKER-FPA, 1ST GRADE TEACHER-BC 06/17/2022 Last Documented On 3 12:24PM ; [facility] Intervertebral disc degeneration PAIN MA NAGEMENT FOLLOW UP with JONELLE G JOSUÉ MAINTENANCE AND REPAIR WORKER-FPA, 1ST GRADE TEACHER-BC 06/17/2022 Last Documented On 3 12:24PM ; [facility] Lumbar radiculopathy PAIN MANAGEMENT FOL LOW UP with JONELLE G JOSUÉ MAINTENANCE AND REPAIR WORKER-FPA, 1ST GRADE TEACHER-BC 06/17/2022 Last Documented On 3 12:24PM ; [facility] Lumbar spondylosis without m yelopathy or radiculopathy PAIN MANAGEMENT FOLLOW UP with JONELLE Jessica JOSUÉ MAINTENANCE AND REPAIR WORKER-FPA, 1ST GRADE TEACHER-BC 06/17/2022 Last Documented On 3 12:24PM ; [facility] Sacroiliitis PAIN MANAGEMENT FOLL OW UP with JONELLE G JOSUÉ MAINTENANCE AND REPAIR WORKER-FPA, 1ST GRADE TEACHER-BC 06/17/2022 Last Documented On 3 12:24PM ; [facility] [Z01.818 - Encounter for ot er preprocedural examination] visit for: preoperative exam PAIN MANAGEMENT FOLLOW UP with JONELLE G JOSUÉ MAINTENANCE AND REPAIR WORKER-FPA, 1ST GRADE TEACHER-BC 05/13/2022 Last Documented On 3 11:50AM ; [facility] Chronic pain syndrome PAIN MANAGEMENT FO LLOW UP with JONELLE G JOSUÉ MAINTENANCE AND REPAIR WORKER-FPA, 1ST GRADE TEACHER-BC 05/13/2022 Last Documented On 3 11:50AM ; [facility] DORSALGIA PAIN MANAGEMENT FOLLOW UP with Jacob LANCASTER G OJSUÉ MAINTENANCE AND REPAIR WORKER-FPA, 1ST GRADE TEACHER-BC 05/13/2022 Last Documented On 3 11:50AM ; [facility] Intervertebral disc degeneration PAIN MA NAGEMENT FOLLOW UP with JONELLE Lopez JOSUÉ MAINTENANCE AND REPAIR WORKER-FPA, 1ST GRADE TEACHER-BC 05/13/2022 Last Documented On 3 11:50AM ; [facility] Lumbar radiculopathy PAIN MANAGEMENT FOL LOW UP with JONELLE Lopez JOSUÉ MAINTENANCE AND REPAIR WORKER-FPA, 1ST GRADE TEACHER-BC 05/13/2022 Last Documented On 3 11:50AM ; [facility] Lumbar spondylosis without m yelopathy or radiculopathy PAIN MANAGEMENT FOLLOW UP with JONELLE Lopez JOSUÉ MAINTENANCE AND REPAIR WORKER-FPA, 1ST GRADE TEACHER-BC 05/13/2022 Last Documented On 3 11:50AM ; [facility] Sacroiliitis PAIN MANAGEMENT FOLL OW UP with JONELLE Lopez JOSUÉ MAINTENANCE AND REPAIR WORKER-FPA, 1ST GRADE TEACHER-BC 05/13/2022 Last Documented On 3 11:50AM ; [facility] Chronic pain syndrome PAIN MANAGEMENT FO LLOW UP with JONELLE Lopez JOSUÉ MAINTENANCE AND REPAIR WORKER-FPA, 1ST GRADE TEACHER-BC 04/25/2022 Last Documented On 3 11:58AM ; [facility] DORSALGIA PAIN MANAGEMENT FOLLOW UP with Jacob Lopez JOSUÉ MAINTENANCE AND REPAIR WORKER-FPA, 1ST GRADE TEACHER-BC 04/25/2022 Last Documented On 3 11:58AM ; [facility] Intervertebral disc degeneration PAIN MA NAGEMENT FOLLOW UP with JONELLE Lopez JOSUÉ MAINTENANCE AND REPAIR WORKER-FPA, 1ST GRADE TEACHER-BC 04/25/2022 Last Documented On 3 11:58AM ; [facility] Lumbar radiculopathy PAIN MANAGEMENT FOL LOW UP with JONELLE Jessica JOSUÉ MAINTENANCE AND REPAIR WORKER-FPA, 1ST GRADE TEACHER-BC 04/25/2022 Last Documented On 3 11:58AM ; [facility] Lumbar spondylosis without m yelopathy or radiculopathy PAIN MANAGEMENT FOLLOW UP with JONELLE Lopez JOSUÉ MAINTENANCE AND REPAIR WORKER-FPA, 1ST GRADE TEACHER-BC 04/25/2022 Last Documented On 3 11:58AM ; [facility] Sacroiliitis PAIN MANAGEMENT FOLL OW UP with JONELLE Lopez JOSUÉ MAINTENANCE AND REPAIR WORKER-FPA, 1ST GRADE TEACHER-BC 04/25/2022 Last Documented On 3 11:58AM ; [facility] Chronic pain syndrome PAIN MANAGEMENT FO LLOW UP with JONELLE Jessica JOSUÉ MAINTENANCE AND REPAIR WORKER-FPA, 1ST GRADE TEACHER-BC 03/22/2022 Last Documented On 3 11:14AM ; [facility] DORSALGIA PAIN MANAGEMENT FOLLOW UP with Jacob Lopez JOSUÉ MAINTENANCE AND REPAIR WORKER-FPA, 1ST GRADE TEACHER-BC 03/22/2022 Last Documented On 3 11:14AM ; [facility] Intervertebral disc degeneration PAIN MA NAGEMENT FOLLOW UP with JONELLE Jessica JOSUÉ MAINTENANCE AND REPAIR WORKER-FPA, 1ST GRADE TEACHER-BC 03/22/2022 Last Documented On 3 11:14AM ; [facility] Left-sided sciatica PAIN MANAGEMENT FOLL OW UP with JONELLE Jessica JOSUÉ MAINTENANCE AND REPAIR WORKER-FPA, 1ST GRADE TEACHER-BC 03/22/2022 Last Documented On 3 11:14AM ; [facility] Lumbar radiculopathy PAIN MANAGEMENT FOL LOW UP with JONELLE Jessica JOSUÉ MAINTENANCE AND REPAIR WORKER-FPA, 1ST GRADE TEACHER-BC 03/22/2022 Last Documented On 3 11:14AM ; [facility] Lumbar spondylosis without m yelopathy or radiculopathy PAIN MANAGEMENT FOLLOW UP with JONELLE Lopez JOSUÉ MAINTENANCE AND REPAIR WORKER-FPA, 1ST GRADE TEACHER-BC 03/22/2022 Last Documented On 3 11:14AM ; [facility] Sacroiliitis PAIN MANAGEMENT FOLL OW UP with JONELLE Jessica JOSUÉ MAINTENANCE AND REPAIR WORKER-FPA, 1ST GRADE TEACHER-BC 03/22/2022 Last Documented On 3 11:14AM ; [facility] Chronic pain syndrome PAIN MANAGEMENT FO LLOW UP with JONELLE Jessica JOSUÉ MAINTENANCE AND REPAIR WORKER-FPA, 1ST GRADE TEACHER-BC 02/14/2022 Last Documented On 2 9:06AM ; [facility] DORSALGIA PAIN MANAGEMENT FOLLOW UP with Jacob Lopez JOSUÉ MAINTENANCE AND REPAIR WORKER-FPA, 1ST GRADE TEACHER-BC 02/14/2022 Last Documented On 2 9:06AM ; [facility] Intervertebral disc degeneration PAIN MA NAGEMENT FOLLOW UP with JONELLE Jessica JOSUÉ MAINTENANCE AND REPAIR WORKER-FPA, 1ST GRADE TEACHER-BC 02/14/2022 Last Documented On 2 9:06AM ; [facility] Left-sided sciatica PAIN MANAGEMENT FOLL OW UP with JONELLE Jessica JOSUÉ MAINTENANCE AND REPAIR WORKER-FPA, 1ST GRADE TEACHER-BC 02/14/2022 Last Documented On 2 9:06AM ; [facility] Lumbar radiculopathy PAIN MANAGEMENT FOL LOW UP with JONELLE Jessica JOSUÉ MAINTENANCE AND REPAIR WORKER-FPA, 1ST GRADE TEACHER-BC 02/14/2022 Last Documented On 2 9:06AM ; [facility] Lumbar spondylosis with radiculopathy PA IN MANAGEMENT FOLLOW UP with JONELLE Jessica JOSUÉ MAINTENANCE AND REPAIR WORKER-FPA, 1ST GRADE TEACHER-BC 02/14/2022 Last Documented On 2 9:06AM ; [facility] Sacroiliitis PAIN MANAGEMENT FOLL OW UP with JONELLE Jessica JOSUÉ MAINTENANCE AND REPAIR WORKER-FPA, 1ST GRADE TEACHER-BC 02/14/2022 Last Documented On 2 9:06AM ; [facility] Chronic pain syndrome PAIN MANAGEMENT FO LLOW UP with JONELLE Lopez JOSUÉ MAINTENANCE AND REPAIR WORKER-FPA, 1ST GRADE TEACHER-BC 09/30/2021 Last Documented On 2 9:57AM ; [facility] DORSALGIA PAIN MANAGEMENT FOLLOW UP with Jacob Lopez JOSUÉ MAINTENANCE AND REPAIR WORKER-FPA, 1ST GRADE TEACHER-BC 09/30/2021 Last Documented On 2 9:57AM ; [facility] Intervertebral disc degeneration PAIN MA NAGEMENT FOLLOW UP with JONELLE Jessica JOSUÉ MAINTENANCE AND REPAIR WORKER-FPA, 1ST GRADE TEACHER-BC 09/30/2021 Last Documented On 2 9:57AM ; [facility] Left-sided sciatica PAIN MANAGEMENT FOLL OW UP with JONELLE Jessica JOSUÉ MAINTENANCE AND REPAIR WORKER-FPA, 1ST GRADE TEACHER-BC 09/30/2021 Last Documented On 2 9:57AM ; [facility] Lumbar radiculopathy PAIN MANAGEMENT FOL LOW UP with JONELLE G JOSUÉ MAINTENANCE AND REPAIR WORKER-FPA, 1ST GRADE TEACHER-BC 09/30/2021 Last Documented On 2 9:57AM ; [facility] Lumbar spondylosis with radiculopathy PA IN MANAGEMENT FOLLOW UP with JONELLE Jessica JOSUÉ MAINTENANCE AND REPAIR WORKER-FPA, 1ST GRADE TEACHER-BC 09/30/2021 Last Documented On 2 9:57AM ; [facility] Sacroiliitis PAIN MANAGEMENT FOLL OW UP with JONELLE G JOSUÉ MAINTENANCE AND REPAIR WORKER-FPA, 1ST GRADE TEACHER-BC 09/30/2021 Last Documented On 2 9:57AM ; [facility] Chronic pain syndrome PAIN MANAGEMENT FO LLOW UP with JONELLE G JOUSÉ MAINTENANCE AND REPAIR WORKER-FPA, 1ST GRADE TEACHER-BC 08/25/2021 Last Documented On 2 1:19PM ; [facility] DORSALGIA PAIN MANAGEMENT FOLLOW UP with Jacob Lopez JOSUÉ MAINTENANCE AND REPAIR WORKER-FPA, 1ST GRADE TEACHER-BC 08/25/2021 Last Documented On 2 1:19PM ; [facility] Intervertebral disc degeneration PAIN MA NAGEMENT FOLLOW UP with JONELLE G JOSUÉ MAINTENANCE AND REPAIR WORKER-FPA, 1ST GRADE TEACHER-BC 08/25/2021 Last Documented On 2 1:19PM ; [facility] Lumbar radiculopathy PAIN MANAGEMENT FOL LOW UP with JONELLE Jessica JOSUÉ MAINTENANCE AND REPAIR WORKER-FPA, 1ST GRADE TEACHER-BC 08/25/2021 Last Documented On 2 1:19PM ; [facility] Lumbar spondylosis with radiculopathy PA IN MANAGEMENT FOLLOW UP with JONELLE G JOSUÉ MAINTENANCE AND REPAIR WORKER-FPA, 1ST GRADE TEACHER-BC 08/25/2021 Last Documented On 2 1:19PM ; [facility] Sacroiliitis PAIN MANAGEMENT FOLL OW UP with JONELLE G JOSUÉ MAINTENANCE AND REPAIR WORKER-FPA, 1ST GRADE TEACHER-BC 08/25/2021 Last Documented On 2 1:19PM ; [facility] Chronic pain syndrome PAIN MANAGEMENT FO LLOW UP with JONELLE G JOSUÉ MAINTENANCE AND REPAIR WORKER-FPA, 1ST GRADE TEACHER-BC 08/04/2021 Last Documented On 2 9:40AM ; [facility] DORSALGIA PAIN MANAGEMENT FOLLOW UP with Jacob Lopez JOSUÉ MAINTENANCE AND REPAIR WORKER-FPA, 1ST GRADE TEACHER-BC 08/04/2021 Last Documented On 2 9:40AM ; [facility] Intervertebral disc degeneration PAIN MA NAGEMENT FOLLOW UP with JONELLE G JOSUÉ MAINTENANCE AND REPAIR WORKER-FPA, 1ST GRADE TEACHER-BC 08/04/2021 Last Documented On 2 9:40AM ; [facility] Lumbar radiculopathy PAIN MANAGEMENT FOL LOW UP with JONELLE Lopez JOSUÉ MAINTENANCE AND REPAIR WORKER-FPA, 1ST GRADE TEACHER-BC 08/04/2021 Last Documented On 2 9:40AM ; [facility] Lumbar spondylosis with radiculopathy PA IN MANAGEMENT FOLLOW UP with JONELLE Lopez JOSUÉ MAINTENANCE AND REPAIR WORKER-FPA, 1ST GRADE TEACHER-BC 08/04/2021 Last Documented On 2 9:40AM ; [facility] Sacroiliitis PAIN MANAGEMENT FOLL OW UP with JONELLE Jessica JOSUÉ MAINTENANCE AND REPAIR WORKER-FPA, 1ST GRADE TEACHER-BC 08/04/2021 Last Documented On 2 9:40AM ; [facility] Chronic pain syndrome PAIN MANAGEMENT FO LLOW UP with JONELLE Jessica JOSUÉ MAINTENANCE AND REPAIR WORKER-FPA, 1ST GRADE TEACHER-BC 07/08/2021 Last Documented On 2 11:49AM ; [facility] DORSALGIA PAIN MANAGEMENT FOLLOW UP with Jacob Lopez JOSUÉ MAINTENANCE AND REPAIR WORKER-FPA, 1ST GRADE TEACHER-BC 07/08/2021 Last Documented On 2 11:49AM ; [facility] [facility] Intervertebral disc degeneration PAIN MA NAGEMENT FOLLOW UP with JONELLE Jessica JOSUÉ MAINTENANCE AND REPAIR WORKER-FPA, 1ST GRADE TEACHER-BC 07/08/2021 Last Documented On 2 11:49AM ; [facility] Lumbar spondylosis with radiculopathy PA IN MANAGEMENT FOLLOW UP with JONELLE Lopez JOSUÉ MAINTENANCE AND REPAIR WORKER-FPA, 1ST GRADE TEACHER-BC 07/08/2021 Last Documented On 2 11:49AM ; [facility] Sacroiliitis PAIN MANAGEMENT FOLL OW UP with JONELLE Jessica JOSUÉ MAINTENANCE AND REPAIR WORKER-FPA, 1ST GRADE TEACHER-BC 07/08/2021 Last Documented On 2 11:49AM ; [facility] Chronic pain syndrome PAIN MANAGEMENT NE W CONSULT with JONELLE G JOSUÉ MAINTENANCE AND REPAIR WORKER-FPA, 1ST GRADE TEACHER-BC 06/11/2021 Last Documented On 2 9:59AM ; [facility] DORSALGIA PAIN MANAGEMENT NEW CONSULT with JONELLE G JOSUÉ MAINTENANCE AND REPAIR WORKER-FPA, 1ST GRADE TEACHER-BC 06/11/2021 Last Documented On 2 9:59AM ; [facility] Intervertebral disc degeneration PAIN MA NAGEMENT NEW CONSULT with JONELLE MOSES APRN-FPKaiden 1ST GRADE TEACHER-BC 06/11/2021 Last Documented On 2 9:59AM ; [facility] Lumbar spondylosis with radiculopathy PA IN MANAGEMENT NEW CONSULT with JONELLE MOSES MAINTENANCE AND REPAIR WORKER-FPKaiden 1ST GRADE TEACHER- 06/11/2021 Last Documented On 2 9:59AM ; [facility] Instructions Includes: Instructions for all patient encounters Instructions to patient Intervention and counseling on cessation of tobacco use : Patient recieved smoking cessation handout Last Documented On 2 10:40AM ; [facility] Education and Decision Aids were provided during visit for: Lifestyle education Last Documented On 3 10:53AM ; [facility] Pill Count: OXYCODONE FROM D R DWIGHT ~Hydrocodone about 1 weeks worth left Last Documented On 3 11:01AM ; [facility] Lifestyle education Last Documented On 3 2:55PM ; [facility] Pill Count: 35 Appropriate H ydrocodone: Last Documented On 3 3:01PM ; [facility] Lifestyle education Last Documented On 3 3:30PM ; [facility] Pill Count: 20 Hydrocodone: Last Documented On 3 3:35PM ; [facility] Lifestyle education Last Documented On 3 3:30PM ; [facility] Pill Count: 27 Hydrocodone: Last Documented On 3 3:35PM ; [facility] Lifestyle education Last Documented On 3 9:34AM ; [facility] Pill Count: 22 Hydrocodone: Last Documented On 3 9:44AM ; [facility] Pill Count: Patient did not bring pain medication to appointment for pill count, per policy. Advised in order to continue to safely prescribe opioids, medication must be brought to each appointment Last Documented On 3 9:34AM ; [facility] Lifestyle education Last Documented On 3 9:50AM ; [facility] Pill Count: Hydrocodone: Last Documented On 3 9:54AM ; [facility] Pill Count: Patient did not bring pain medication to appointment for pill count, per policy. Advised in order to continue to safely prescribe opioids, medication must be brought to each appointment Last Documented On 3 9:54AM ; [facility] Lifestyle education Last Documented On 3 10:43AM ; [facility] Pill Count: twelve Hydrocodo ne: Last Documented On 3 11:00AM ; [facility] Lifestyle education Last Documented On 3 10:30AM ; [facility] Pill Count: Hydrocodone: DID not bring Last Documented On 3 11:13AM ; [facility] Lifestyle education Last Documented On 2 8:33AM ; [facility] Pill Count: 0.5 HYDROCODONE Last Documented On 2 8:37AM ; [facility] Lifestyle education Last Documented On 2 8:57AM ; [facility] Pill Count: 0 HYDROCODONE Last Documented On 2 9:02AM ; [facility] Lifestyle education Last Documented On 2 10:35AM ; [facility] Pill Count: 20 HYDROCODONE Last Documented On 2 10:40AM ; [facility] Lifestyle education Last Documented On 2 9:11AM ; [facility] Lifestyle education Last Documented On 2 11:07AM ; [facility] Pill Count: ten aCETAMINOPHE N-CODEINE 3 Last Documented On 2 11:20AM ; [facility] Lifestyle education Last Documented On 2 9:51AM ; [facility] Medical Equipment - Implanted Devices Includes: Current and historical Devices No Medical Equipment Recorded Medications Includes: Current and historical Medications Current Medications (continue as prescribed) Pregabalin 150 MG Oral Capsule 05/15/2023 Provider: JONELLE MOSES APRN- LESA, STANLEY-BC Diagnosis: Radiculopathy, l umbar region TAKE 1 CAPSULE BY MOUTH TWICE DAILY Last Documented On 4 1:13PM By JONELLE CHINO ; [facility] HYDROcodone-Acetaminophen 5- 325 MG Oral Tablet 02/21/2023 Provider: MATTI PRESCOTT 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, lumbar region One tablet twice a day as ne eded for severe pain Last Documented On 3 9:13AM By JONELLE CHINO ; [facility] Methocarbamol 500 MG Oral Tablet 02/02/2023 Provider: MATTI PRESCOTT Diagnosis: Dorsalgia, unspe cified TAKE 1 TABLET BY MOUTH THREE TIMES DAILY NEEDED Last Documented On 3 11:05AM By JONELLE CHINO ; [facility] buPROPion HCl ER (XL) 150 MG Oral Tablet Extended Release 24 Hour 10/18/2022 Provider: Diagnosis: once a day Last Documented On 3 3:22PM By JONELLE CHINO ; [facility] Citalopram Hydrobromide 40 MG Oral Tablet 06/11/2021 Provider: DELTA SIGALA Diagnosis: Last Documented On 2 9:58AM By JONELLE CHINO ; [facility] Albuterol Sulfate HFA 108 (9 0 Base) MCG/ACT Inhalation Aerosol Solution 06/11/2021 Provider: DELTA RAMSEY Diagnosis: Last Documented On 2 9:58AM By JONELLE CHINO ; [facility] Past Medications on file Celecoxib 200 MG Oral Capsule 04/11/2023 - 05/10/2023 Provider: BRENNA KEARNS Diagnosis: Dorsalgia, unspe cified TAKE 1 CAPSULE BY MOUTH EVER Y MORNING WITH FOOD Last Documented On 4 10:43AM By Christine DAN ; [facility] Celecoxib 200 MG Oral Capsule 03/21/2023 - 04/11/2023 Provider: MATTI PRESCOTT Diagnosis: Dorsalgia, unspe cified TAKE 1 CAPSULE BY MOUTH EVER Y MORNING WITH FOOD Last Documented On 04/11/2023 8:20AM By Brenna ANGEL ; [facility] Celecoxib 200 MG Oral Capsule 02/13/2023 - 03/21/2023 Provider: JONELLE MOSES MAINTENANCE AND REPAIR WORKER-FPA 1ST GRADE TEACHER-BC Diagnosis: Dorsalgia, unspe cified TAKE 1 CAPSULE BY MOUTH EVER Y MORNING WITH FOOD Last Documented On 4 8:20AM By JONELLE SOLOP-BC ; [facility] Pregabalin 150 MG Oral Capsule 02/03/2023 - 05/15/2023 Provider: JONELLE MOSES MAINTENANCE AND REPAIR WORKER-FPKaiden 1ST GRADE TEACHER-BC Diagnosis: Radiculopathy, l umbar region TAKE 1 CAPSULE BY MOUTH TWICE DAILY Last Documented On 4 12:59PM By JONELLE MOSES [facility]-BC ; [facility] Pregabalin 150 MG Oral Capsule 02/02/2023 - 02/03/2023 Provider: JONELLE Richey PRN-FPKaiden 1ST GRADE TEACHER-BC Diagnosis: TAKE 1 CAPSULE BY MOUTH TWICE DAILY Last Documented On 3 11:08AM By JONELLE MOSES [facility]- ; [facility] oxyCODONE HCl 5 MG Oral Tablet 01/31/2023 - 02/21/2023 Provider: Diagnosis: Last Documented On 3 8:59AM By JONELLE ANGEL-TARYN ; [facility] Pregabalin 150 MG Oral Capsule 01/05/2023 - 02/02/2023 Provider: JONELLE MOSES A PRN-FPKaiden 1ST GRADE TEACHER-BC Diagnosis: TAKE ONE CAPSULE BY MOUTH TWICE DAILY Last Documented On 3 9:37AM By JONELLE SOLOP-TARYN ; [facility] HYDROcodone-Acetaminophen 5- 325 MG Oral Tablet 01/02/2023 - 02/20/2023 Provider: JONELLE MOSES MAINTENANCE AND REPAIR WORKER-FPA 1ST GRADE TEACHER-BC 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, lumbar region One tablet twice a day as needed for severe pain Last Documented On 3 9:00AM By JONELLE ANGEL-BC ; [facility] HYDROcodone-Acetaminophen 5- 325 MG Oral Tablet 12/01/2022 - 01/02/2023 Provider: JONELLE MOSES MAINTENANCE AND REPAIR WORKER-FPA, 1ST GRADE TEACHER-BC 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, lumbar region One tablet twice a day as needed for severe pain Last Documented On 3 3:08PM By JONELLE ANGELTARYN ; [facility] Celecoxib 200 MG Oral Capsule 11/08/2022 - 02/13/2023 Provider: JONELLE MOSES MAINTENANCE AND REPAIR WORKER-FPA 1ST GRADE TEACHER-BC Diagnosis: Dorsalgia, unspe cified TAKE 1 CAPSULE BY MOUTH EVER Y MORNING WITH FOOD Last Documented On 3 8:55AM By JONELLE MOSES [facility] ; [facility] HYDROcodone-Acetaminophen 5- 325 MG Oral Tablet 10/31/2022 - 11/30/2022 Provider: JONELLE MOSES APRN-FPKaiden 1ST GRADE TEACHER-BC 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, lumbar region One tablet twice a day as needed for severe pain Last Documented On 3 8:43AM By JONELLE MOSES [facility] ; [facility] Valium 2 MG Oral Tablet 10/31/2022 - 02/03/2023 Provid er: JONELLE MOSES MAINTENANCE AND REPAIR WORKER- FPA, 1ST GRADE TEACHER-BC Diagnosis: take 1 tablet 1 hour before procedure Last Documented On 3 10:54AM By Christine DAN ; [facility] Methocarbamol 500 MG Oral Tablet 10/18/2022 - 02/02/2023 Provider: JONELLE MOSES MAINTENANCE AND REPAIR WORKER-FPA, 1ST GRADE TEACHER-BC Diagnosis: Dorsalgia, unspecified One tablet three times a day as needed Last Documented On 3 12:21PM By JONELLE MOSES [facility] ; [facility] Pregabalin 150 MG Oral Capsule 10/18/2022 - 02/03/2023 Provider: JONELLE MOSES MAINTENANCE AND REPAIR WORKER-FPA 1ST GRADE TEACHER-BC Diagnosis: Radiculopathy, l umbar region TAKE 1 CAPSULE BY MOUTH TWICE DAILY Last Documented On 3 10:59AM By JONELLE SOLOTARYN ; [facility] Celecoxib 200 MG Oral Capsule 10/12/2022 - 11/08/2022 Provider: JONELLE MOSES MAINTENANCE AND REPAIR WORKER-FPA, 1ST GRADE TEACHER-BC Diagnosis: Dorsalgia, unspe cified TAKE 1 CAPSULE BY MOUTH EVER Y MORNING WITH FOOD Last Documented On 3 10:31AM By JONELLE CHINO ; [facility] HYDROcodone-Acetaminophen 5- 325 MG Oral Tablet 10/04/2022 - 10/31/2022 Provider: JONELLE MOSES APRN-[place] MCFADDENP-BC 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, lumbar region One tablet twice a day as needed for severe pain Last Documented On 3 2:58PM By JONELLE CHINO ; [facility] Pregabalin 150 MG Oral Capsule 09/16/2022 - 10/18/2022 Provider: STANLEY PRESCOTT-BC Diagnosis: Radiculopathy, l umbar region TAKE 1 CAPSULE BY MOUTH TWICE DAILY Last Documented On 3 3:23PM By JONELLE CHINO ; [facility] Celecoxib 200 MG Oral Capsule 09/15/2022 - 10/12/2022 Provider: GERMANIA PRESCOTTP-BC Diagnosis: Dorsalgia, unspe cified TAKE 1 CAPSULE BY MOUTH EVER Y MORNING WITH FOOD Last Documented On 3 4:33PM By JONELLE CHINO ; [facility] HYDROcodone-Acetaminophen 5- 325 MG Oral Tablet 09/01/2022 - 10/04/2022 Provider: STANLEY PRESCOTT-BC 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, lumbar region One tablet twice a day as needed for severe pain Last Documented On 3 1:18PM By JONELLE CHINO ; [facility] Pregabalin 150 MG Oral Capsule 08/23/2022 - 09/16/2022 Provider: JONELLE GORDON 1ST GRADE TEACHER-BC Diagnosis: Radiculopathy, l umbar region 1 CAPSULE TWO TIMES A DAY Last Documented On 3 9:49AM By JONELLE CHNIO ; [facility] Pregabalin 75 MG Oral Capsule 08/23/2022 - 10/18/2022 Provider: JONELLE MOSES MAINTENANCE AND REPAIR WORKER-FPA 1ST GRADE TEACHER-BC Diagnosis: Radiculopathy, l umbar region 1 capsule at bedtime for 4 d ays then increase to two times daily Last Documented On 10/18/2022 3:02PM By Janneth Burr RN ; [facility] Valium 2 MG Oral Tablet 08/05/2022 - 10/18/2022 Provider: JONELLE MOSES MAINTENANCE AND REPAIR WORKER-FPA 1ST GRADE TEACHER-BC 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, lumbar region take 1 tablet 1 hour prior to procedure Last Documented On 10/18/2022 3:02PM By Janneth Burr RN ; [facility] HYDROcodone-Acetaminophen 5- 325 MG Oral Tablet 08/02/2022 - 09/01/2022 Provider: JONELLE MOSES APRN-FPKaiden 1ST GRADE TEACHER-BC 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, lumbar region One tablet twice a day as needed for severe pain Last Documented On 3 2:53PM By JONELLE CHINO ; [facility] HYDROcodone-Acetaminophen 5- 325 MG Oral Tablet 06/27/2022 - 08/02/2022 Provider: JONELLE MOSES APRN-LESA 1ST GRADE TEACHER-BC 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, lumbar region One tablet twice a day as needed for severe pain Last Documented On 3 11:13AM By JONELLE CHINO ; [facility] Celecoxib 200 MG Oral Capsule 06/17/2022 - 09/15/2022 Provider: JONELLE MOSES APRN-FPKaiden 1ST GRADE TEACHER-BC Diagnosis: Dorsalgia, unspe cified TAKE 1 CAPSULE BY MOUTH EVER Y MORNING WITH FOOD Last Documented On 3 9:58AM By JONELLE CHINO ; [facility] Methocarbamol 500 MG Oral Tablet 06/17/2022 - 10/18/2022 Provider: JONELLE MOSES MAINTENANCE AND REPAIR WORKER-FPA 1ST GRADE TEACHER-BC Diagnosis: Dorsalgia, unspecified One tablet three times a day as needed Last Documented On 3 3:30PM By JONELLE CHINO ; [facility] predniSONE 20 MG Oral Tablet 06/17/2022 - 07/19/2022 Provider: MATTI PRESCOTT Diagnosis: Sacroiliitis, no t elsewhere classified take 3 tablets with breakfas t for 3 day then 2 for 3 days then 1 for 3 days then 1/2 for 2 days Last Documented On 3 3:35PM By Christine DAN ; [facility] HYDROcodone-Acetaminophen 5- 325 MG Oral Tablet 06/09/2022 - 06/27/2022 Provider: MATTI PRESCOTT 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, lumbar region One tablet daily as needed for severe pain only Last Documented On 3 12:29PM By JONELLE CHINO ; [facility] Methocarbamol 500 MG Oral Tablet 05/13/2022 - 06/17/2022 Provider: MATTI PRESCOTT Diagnosis: Dorsalgia, unspecified One tablet three times a day as needed Last Documented On 3 10:28AM By JONELLE CHINO ; [facility] HYDROcodone-Acetaminophen 5- 325 MG Oral Tablet 05/13/2022 - 06/08/2022 Provider: MATTI PRESCOTT 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, lumbar region One tablet daily as needed for severe pain only Last Documented On 3 9:13AM By JONELLE CHINO ; [facility] Valium 2 MG Oral Tablet 04/25/2022 - 08/05/2022 Provider: MATTI PRESCOTT 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, lumbar region take 1 tablet 1 hour prior to procedure Last Documented On 3 1:37PM By JONELLE CHINO ; [facility] Celecoxib 200 MG Oral Capsule 04/25/2022 - 06/17/2022 Provider: JONELLE G JOSUÉ MAINTENANCE AND REPAIR WORKER-FPA, 1ST GRADE TEACHER-BC Diagnosis: Dorsalgia, unspe cified TAKE 1 CAPSULE BY MOUTH EVER Y MORNING WITH FOOD Last Documented On 3 10:28AM By JONELLE ANGELTARYN ; [facility] Valium 2 MG Oral Tablet 03/22/2022 - 04/25/2022 Provider: JONELLE MOSES MAINTENANCE AND REPAIR WORKER-FPA, 1ST GRADE TEACHER-BC 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, lumbar region take 1 tablet 1 hour prior to procedure Last Documented On 3 11:26AM [facility] ; [facility] HYDROcodone-Acetaminophen 5- 325 MG Oral Tablet 03/22/2022 - 05/13/2022 Provider: JONELLE MOSES APRN-FPKaiden 1ST GRADE TEACHER-BC 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, lumbar region One tablet daily as needed for severe pain only Last Documented On 3 10:14AM By JONELLE ANGELTARYN ; [facility] Valium 2 MG Oral Tablet 02/21/2022 - 03/22/2022 Provid er: JONELLE MOSES MAINTENANCE AND REPAIR WORKER- FPA, 1ST GRADE TEACHER-BC Diagnosis: take 1 tablet 1 hour prior to procedure Last Documented On 3 11:13AM By JONELLE SOLOTARYN ; [facility] HYDROcodone-Acetaminophen 5- 325 MG Oral Tablet 02/14/2022 - 03/22/2022 Provider: JONELLE MOSES MAINTENANCE AND REPAIR WORKER-FPA, 1ST GRADE TEACHER-BC Diagnosis: Radiculopathy, lumbar region One tablet daily as needed for severe pain only Last Documented On 3 11:13AM By JONELLE ANGELTARYN ; [facility] Celecoxib 200 MG Oral Capsule 02/11/2022 - 04/25/2022 Provider: JONELLE MOSES MAINTENANCE AND REPAIR WORKER-FPA, 1ST GRADE TEACHER-BC Diagnosis: Dorsalgia, unspe cified TAKE 1 CAPSULE BY MOUTH EVER Y MORNING WITH FOOD Last Documented On 3 11:26AM By JONELLE ANGELTARYN ; [facility] Celecoxib 200 MG Oral Capsule 12/16/2021 - 02/11/2022 Provider: JONELLE MOSES APRN-STANLEY MCFADDEN-BC Diagnosis: Dorsalgia, unspe cified TAKE 1 CAPSULE BY MOUTH EVER Y MORNING WITH FOOD Last Documented On 2 1:11PM By JONELLE ANGELTARYN ; [facility] HYDROcodone-Acetaminophen 5- 325 MG Oral Tablet 12/09/2021 - 02/14/2022 Provider: JONELLE GORDON 1ST GRADE TEACHER-BC Diagnosis: Radiculopathy, lumbar region One tablet daily as needed for severe pain only Last Documented On 2 9:01AM By JONELLE SOLOTARYN ; [facility] Celecoxib 200 MG Oral Capsule 11/04/2021 - 12/16/2021 Provider: GERMANIA PRESCOTTP-BC Diagnosis: Dorsalgia, unspe cified TAKE 1 CAPSULE BY MOUTH EVER Y MORNING WITH FOOD Last Documented On 2 10:32AM [facility] ; [facility] HYDROcodone-Acetaminophen 5- 325 MG Oral Tablet 09/30/2021 - 12/08/2021 Provider: GERMANIA PRESCOTTP-BC Diagnosis: Radiculopathy, lumbar region One tablet daily as needed for severe pain only Last Documented On 2 1:07PM By [facility]ES [facility] ; [facility] Ozempic (0.25 or 0.5 MG/DOSE ) 2 MG/1.5ML Subcutaneous Solution Pen-injector 09/30/2021 - 07/19/2022 Provider: Diagnosis: 1 injection a week. Last Documented On 3 3:36PM By Christine DAN ; [facility] Celecoxib 200 MG Oral Capsule 09/30/2021 - 11/04/2021 Provider: STANLEY PRESCOTT-BC Diagnosis: Dorsalgia, unspe cified TAKE 1 CAPSULE BY MOUTH EVER Y MORNING WITH FOOD Last Documented On 2 2:30PM By JONELLE MOSES 1ST GRADE TEACHERTARYN ; [facility] ALPRAZolam 0.5 MG Oral Tablet 08/25/2021 - 09/30/2021 Provider: STANLEY PRESCOTT-TARYN Diagnosis: Radiculopathy, lumbar region Take approximately 45 minute s prior to scheduled procedure Last Documented On 2 9:57AM By JONELLE CHINO ; [facility] Celecoxib 200 MG Oral Capsule 08/06/2021 - 09/30/2021 Provider: MATTI PRESCOTT Diagnosis: Dorsalgia, unspe cified TAKE 1 CAPSULE BY MOUTH EVER Y MORNING WITH FOOD Last Documented On 2 9:49AM By JONELLE CHINO ; [facility] ALPRAZolam 0.5 MG Oral Tablet 08/04/2021 - 08/25/2021 Provider: MATTI PRESCOTT Diagnosis: Radiculopathy, l umbar region take 1 tablet about 40 minut es before procedure Last Documented On 2 10:41AM By Christine DAN ; [facility] HYDROcodone-Acetaminophen 5- 325 MG Oral Tablet 08/04/2021 - 09/30/2021 Provider: MATTI PRESCOTT Diagnosis: Radiculopathy, lumbar region One tablet daily as needed for severe pain only Last Documented On 2 9:49AM By JONELLE CHINO ; [facility] Rosuvastatin Calcium 5 MG Or al Tablet 06/11/2021 - 03/22/2022 Provider: DELTA SIGALA Diagnosis: Last Documented On 3 10:35AM By Christine DAN ; [facility] Ibuprofen 600 MG Oral Tablet 06/11/2021 - 08/04/2021 Félix abel: DELTA SIGALA Diagnosis: Last Documented On 2 9:40AM By JONELLE CHINO ; [facility] busPIRone HCl 10 MG Oral Tablet 06/11/2021 - 3 Provider: DETLA SIGALA Diagnosis: Last Documented On 10/18/2022 3:03PM By Janneth Burr RN ; [facility] Celecoxib 200 MG Oral Capsule 06/11/2021 - 08/06/2021 Provider: JONELLE GORDON [facility] Diagnosis: Dorsalgia, unspe cified 1 Capsule every morning with food Last Documented On 2 11:12AM By JONELLE SOLOTARYN ; [facility] amLODIPine Besylate 5 MG Ora l Tablet 06/11/2021 - 03/22/2022 Provider: DELTA SIGALA Diagnosis: Last Documented On 3 10:35AM By Christine DAN ; [facility] Acetaminophen-Codeine #3 300-30 MG Oral Tablet 06/11/2021 - 08/25/2021 Provider: JONELLE GORDON [facility] Diagnosis: Dorsalgia, unspecified one tablet as needed one to two times daily for SEVERE pain ONLY Last Documented On 2 10:41AM By Christine DAN ; [facility] Baclofen 20 MG Oral Tablet 06/11/2021 - 02/14/2022 Pro vider: DELTA SIGALA Diagnosis: Last Documented On 2 8:46AM By JONELLE MOSES [facility] ; [facility] Losartan Potassium-HCTZ 100- 12.5 MG Oral Tablet 06/11/2021 - 08/23/2022 Provider: DELTA SIGALA Diagnosis: Last Documented On 3 3:35PM By Christine DAN ; [facility] Medications Administered Includes: Administered Medications in patient's chart No Administered Medications Recorded Results Includes: Results from 06/25/2023 through 06/24/2024 No Results Recorded For Specified Dates History of Present Illness History of Present Illness not supported for this document type No History of Present Illness Recorded Social History Description Last Updated Tobacco non-user 06/11/2021 Last Documented On 2 9:59AM ; [facility] Difficulty walking 06/11/2021 Last Documented On 2 9:59AM ; [facility] Smoking Status Unknown Procedures and Surgical History Surgical History Last Updated No Pacemaker 06/11/2021 Last Documented On 2 9:59AM ; [facility] Surgical / procedural history Over 20 yr s ago 06/11/2021 Last Documented On 2 9:59AM ; [facility] Medical History Includes: Medical History in patient's chart Description Last Updated Surgical / procedural history L5-S1 Lumb ar Fusion 01/30/[address] Quintanilla 02/03/2023 Last Documented On 3 11:08AM ; [facility] Denies a fear of falling. 07/08/2021 Last Documented On 2 11:49AM ; [facility] Has had no fall in the last 12 months. 0 07/08/2021 Last Documented On 2 11:49AM ; [facility] Currently wearing eyeglasses 06/11/2021 Last Documented On 2 9:59AM ; [facility] [facility] No Pain Pump 06/11/2021 Last Documented On 2 9:59AM ; [facility] No Spinal cord stimulator 06/11/2021 Last Documented On 2 9:59AM ; [facility] Physical therapy 06/11/2021 Last Documented On 2 9:59AM ; [facility] Please list all illnesses/co nditions you have been diagnosed with: Anxiety/panic attacks, high blood pressure, high colest 06/11/2021 Last Documented On 2 9:59AM ; [facility] Please list all surgeries: L eft Knee surgery for torn miniscus in 1998. hiatal hernia repair in October 2013 and again in June 2017 06/11/2021 Last Documented On 2 9:59AM ; [facility] Family History Includes: Family History in patient's chart Description Last Updated Family history of Arthritis 06/11/2021 Last Documented On 2 9:59AM ; [facility] Paternal history of reported family hist ory of seizures 06/11/2021 Last Documented On 2 9:59AM ; [facility] Review of Systems Review of [...] Active Last Documented On 3 3:05PM ; [facility] Meloxicam Allergy 06/11/2021 Active Last Documented On 3 3:05PM ; [facility] Lamotrigine Allergy 06/11/2021 Active Last Documented On 3 3:05PM ; [facility] LaMICtal Allergy Skin Rashes / Eruption of skin 2 Active Last Documented On 3 3:05PM ; [facility] Iodine Allergy Skin Rashes / Eruption of skin 2 Active Last Documented On 3 3:05PM ; [facility] Insurance Includes: Active Insurance Policies Plan Name Member ID Group # Subscriber Relationship Effect jad Dates 1 - [facility] [id number] JOHNATHON FLORES Se lf Clinical Notes Includes: Signed Clinical Notes starting from 03/25/2022 No Clinical Notes Recorded
--- OUTSIDE RECORDS SUMMARY | 2024-06-24 18:22 | XMS_ITS | Data Portability ---
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 Plan of Treatment Reminders Order Date Submit Date Provider Last Modified By Organization Details Last Modified Time Details Appointments ANY 15 2024 11:00A Jacob CHAVARRIA, STANLEY-TARYN Not available Not available Not available Lab drug screen , urine 2024 025 [id number] In-Office Order, Internal Use Only DO Not Attach Compendium DO Not Attach Compendium, Do Not Delete/merge, [id number] 05/09/2024 09:50:27 CMP, serum or plasma 2024 025 [facility], [address] [facility], [facility], [place], [address], 05/10/2024 09:14:45 HbA1c (hemog lobin A1c), blood 2024 025 [facility], [address] [facility], [facility], [place], [address], 05/10/2024 09:14:46 lipid panel, serum 2024 025 [facility], [address] [facility], [facility], [place], [address], 05/10/2024 09:14:43 CBC w/ auto diff 2024 025 [facility], [address] [facility], [facility], [place], [address], 05/10/2024 09:14:49 TSH + free T4, serum 2024 025 [facility], [address] [facility], [facility], [place], [address], 05/10/2024 09:14:42 vitami n D, 25-hyd amarilis, total, serum 2024 025 [facility], [address] [place] [address], [facility], [place], [address], 05/10/2024 09:14:51 vitami n B12, serum 2024 025 [facility], [address] [place] [address], [facility], [place], [address], 05/10/2024 09:14:47 BNP (B-typ e natriu retic peptid e), serum or plasma 2024 025 [facility], [address] [place] [address], [facility], [place], [address], 05/10/2024 10:37:25 magnes ium, serum or plasma 2024 025 [facility], [address] [facility], [facility], [place], [address], 05/10/2024 09:14:48 fecal occult blood, immuno assay, stool 2024 025 [facility], [address] [place] [address], [facility], [place], [address], 06/13/2024 17:48:27 fecal occult blood, immuno assay, stool 2023 024 [email or web address] [facility], [address] [place] [address], [facility], [place], [address], 04/19/2024 14:45:06 CBC w/ auto diff 2023 024 [facility], [address] [facility], [facility], [place], [address], 06/10/2023 07:13:14 fecal occult blood, immuno assay, stool 2023 024 [email or web address] [facility], [address] [facility], [facility], [place], [address], 08/03/2023 09:59:30 lipid panel, serum 2023 024 [facility], [address] [facility], [facility], [place], [address], 06/10/2023 07:13:13 CMP, serum or plasma 2023 024 [facility], [address] [facility], [facility], [place], [address], 06/10/2023 07:13:13 Referral obstet rician and gyneco logist referr al 2024 025 [facility] Olga Avalos APN, [address] [facility] , [facility] [address], [address], 06/03/2024 13:14:36 cardio logist referr al 2024 025 [email or web address], [address], [place], [address], 06/03/2024 13:14:36 Procedures None record ed. Surgeries None record ed. Imaging MAMMO, screen ing, bilate ral 2024 025 [facility], [address] [place], [address], 06/06/2024 15:23:15 XR, hip, unilat eral, 2 or 3 view 2024 025 [facility], [address] [place], [address], 06/06/2024 15:23:15 XR, hip, unilat eral 2023 024 [facility], [address], [place], [address], 05/29/2024 14:38:44 Medication Orders pregab tiffany 150 mg capsul e 2024 025 [facility] #[id number], [address], [place], [place], [id number], 05/09/2024 09:50:58 naprox en 250 mg tablet 2024 [facility] #[id number], [address], [place], [place], [id number], 05/09/2024 09:50:37 Tyleno l Arthri tis Pain 650 mg tablet ,exten ded releas e 2024 [facility] #[id number], [address], [place], [place], [id number], 05/09/2024 09:50:35 losart an 100 mg-hyd rochlo rothia zide 12.5 mg tablet 2024 [facility] [employer] #[id number], [address], [place], [place], [id number], 05/09/2024 23:20:54 citalo pram 40 mg tablet 2024 [facility] [employer] #48002, [address], [place], [place], [id number], 05/09/2024 09:50:36 buprop ion HCl XL 150 mg 24 hr tablet , extend ed releas e 2024 [facility] #[id number], [address], [place], [place], [id number], 05/09/2024 09:50:40 Advair Diskus 100 mcg-50 mcg/do se powder for inhala tion 2024 [facility] #00439, [address], [place], [place], [id number], 05/09/2024 13:46:44 leonila ukast 10 mg tablet 2023 [facility] #[id number], [address], [place], [place], [id number], 01/05/2024 11:20:06 Ozempi c 0.25 mg or 0.5 mg (2 mg/1.5 mL) subcut aneous pen inject or 2023 [facility] #[id number], [address], [place], [place], [id number], 06/12/2023 14:15:29 Aldact one 25 mg tablet 2023 [facility] #[id number], [address], [place], [place], [id number], 04/18/2023 12:40:18 Patient TargetsNo targets recorded. Patient Instructions Encounter Date Encounter Id Patient Instructions Last Modified By Organization Details Last Modified Time 01/13/2023 [id number] f/u in 3month nsuthan Not available 1 03/15/2022 14:28:51 04/18/2023 [id number] A healthy lifestyle: care instructions nsuthan Not available 04/18/2023 12:40:13 f/u in 2 wks nsuthan Not available 12:40:10 06/09/2023 [id number] A healthy lifestyle: care instructions nsuthan Not available 06/09/2023 12:29:37 f/u in 3 month nsuthan Not available 0 06/09/2023 12:32:58 01/05/2024 [id number] sacroiliac pain: exercises nsuthan Not available 01/05/2024 11:21:56 stool kit /flu shot /f/u in 3 month nsuthan Not available 01/05/2024 11:21:56 05/09/2024 [id number] pneumococcal polysaccharide vaccine: care instructions [email or web address] Not available 05/09/2024 09:46:50 Plan of care has been discussed with patient including expected therapeutic benefits and potential side effects of prescribed medication and treatments. Patient verbalizes understanding and is in agreement with the plan of care. Patient was instructed to keep all scheduled appointments and contact the clinic for any additional problems. Health Maintenance: - CRC screening (45-75):Due at 45 years. colofit ordered - Osteoporosis screening: Due at 65. - Lipid screening (>45 unless additional risk factors): ordered - HIV : declined - HepC: declined -Eye exam: 2022 -Dental Exam: 2023 - Immunizations: - Influenza: Due. 01/05/24 - Prevnar 20: Due at 65. ordered - Tdap/Td ([id number]): 12/20/21 - Zoster (>60):Due at 60. - COVID-19: , 07/20/20 -Labs ordered this visit:CMP, CBC, thyroid panel, BNP, mag lipid panel [email or web address] Not available 05/09/2024 23:32:28 Reason for Referral Senior Information Security Engineer And Gynecologis t Referral for Screening for malignant neoplasm of cervix Referring Physician: [facility], Encounter Date: 05/09/2024 Facilities Clerk Referral for Ed shadia of lower extremity Referring Physician: Family Zay Connolly, Encounter Date: 05/09/2024 Results Created Date Observation Date Name Description Value Unit Range Abnormal Flag Note LastModifiedBy Organization Detail LastModifiedTime 01/12/2001/11/2023 LIPID PANEL cholesterol, total 213 mg/dL 100-19 9 above high normal Not Available [facility] Department [address] [place], [address], 01/12/2023 03:08:17 01/12/20 23 01/11/2023 LIPID PANEL triglyceride s 130 mg/dL 0-149 Not Available [facility] Department [address] [place] [address], [address], 01/12/2023 03:08:17 01/12/20 23 01/11/2023 LIPID PANEL HDL cholesterol 49 mg/dL 40-999 Not Available [facility] Department [address] [place], [address], 01/12/2023 03:08:17 01/12/20 23 01/11/2023 LIPID PANEL VLDL cholesterol ernesto 26 mg/dL 5-40 Not Available [facility] Department [address] [place] [address], [address], 01/12/2023 03:08:17 01/12/20 23 01/11/2023 LIPID PANEL LDL chol calc (nih) 157 mg/dL 0-99 above high normal Not Available [facility] Department [address] [place], [address], 01/12/2023 03:08:17 01/12/20 23 01/11/2023 COMP. METAB OLIC PANEL (14) glucose 69 mg/dL 70-99 below low normal Not Available [facility] Department [address] [place], [address], 01/12/2023 03:08:17 01/12/20 23 01/11/2023 COMP. METAB OLIC PANEL (14) BUN 14 mg/dL 6-24 Not Available [facility] Department [address] [place], [address], 01/12/2023 03:08:17 01/12/20 23 01/11/2023 COMP. METAB OLIC PANEL (14) creatinine 0.84 mg/dL 0.76-1 .27 Not Available [facility] Department [address] [place] [address], [address], 01/12/2023 03:08:17 01/12/20 23 01/11/2023 COMP. METAB OLIC PANEL (14) eGFR 85 >=60 Units for eGFR value s are mL/mi n/1.7 3 The eGFR Calcu latio n has not been valid ated for patie nts under the age of 18. If test resul ts are displ ayed for a patie nt under the age of 18, disre anna that value . Not Available [facility] Department [address] [place] [address], [address], 01/12/2023 03:08:17 01/12/20 23 01/11/2023 COMP. METAB OLIC PANEL (14) BUN/creatini ne ratio 16 9-23 Not Available [facility] Department [address] [place] [address], [address], 01/12/2023 03:08:17 01/12/20 23 01/11/2023 COMP. METAB OLIC PANEL (14) sodium 136 mmol/ L 134-14 4 Not Available [facility] Department [address] [place] [address], [address], 01/12/2023 03:08:17 01/12/20 23 01/11/2023 COMP. METAB OLIC PANEL (14) potassium 3.9 mmol/ L 3.5-5. 2 Not Available [facility] Department [address] [place] [address], [address], 01/12/2023 03:08:17 01/12/20 23 01/11/2023 COMP. METAB OLIC PANEL (14) chloride 96 mmol/ L 96-106 Not Available [facility] Department [address] [place] [address], [address], 01/12/2023 03:08:17 01/12/20 23 01/11/2023 COMP. METAB OLIC PANEL (14) carbon dioxide, total 27 mmol/ L 20-29 Not Available [facility] Department [address] [place] [address], [address], 01/12/2023 03:08:17 01/12/20 23 01/11/2023 COMP. METAB OLIC PANEL (14) calcium 9.5 mg/dL 8.7-10 .2 Not Available [facility] Department [address] [place], [address], 01/12/2023 03:08:17 01/12/20 23 01/11/2023 COMP. METAB OLIC PANEL (14) protein, total 7.3 g/dL 6.0-8. 5 Not Available [facility] Department [address] [place], [address], 01/12/2023 03:08:17 01/12/20 23 01/11/2023 COMP. METAB OLIC PANEL (14) albumin 4.6 g/dL 3.9-4. 9 Not Available [facility] Department [address] [place], [address], 01/12/2023 03:08:17 01/12/20 23 01/11/2023 COMP. METAB OLIC PANEL (14) globulin, total 2.7 g/dL 1.5-4. 5 Not Available [facility] Department [address] [place], [address], 01/12/2023 03:08:17 01/12/20 23 01/11/2023 COMP. METAB OLIC PANEL (14) A/G ratio 2.0 1.2-2. 2 Not Available [facility] Department [address] [place], [address], 01/12/2023 03:08:17 01/12/20 23 01/11/2023 COMP. METAB OLIC PANEL (14) bilirubin, total 0.4 mg/dL 0.0-1. 2 Not Available [facility] Department [address] [place], [address], 01/12/2023 03:08:17 01/12/20 23 01/11/2023 COMP. METAB OLIC PANEL (14) alkaline phosphatase 91 IU/L 44-121 Not Available [facility] Department [address] [place], [address], 01/12/2023 03:08:17 01/12/20 23 01/11/2023 COMP. METAB OLIC PANEL (14) AST (SGOT) 21 IU/L 0-40 Not Available [facility] Department [address] [place], [address], 01/12/2023 03:08:17 01/12/20 23 01/11/2023 COMP. METAB OLIC PANEL (14) ALT (SGPT) 17 IU/L 0-32 Not Available [facility] Department [address] [place], [address], 01/12/2023 03:08:17 01/12/20 23 01/11/2023 CBC WITH DIFFE RENTI AL/PL ATELE T WBC 9.7 x10e3 /uL 3.4-10 .8 Not Available [facility] Department [address] [place], [address], 01/12/2023 03:08:18 01/12/20 23 01/11/2023 CBC WITH DIFFE RENTI AL/PL ATELE T RBC 4.89 x10e6 /uL 3.77-5 .28 Not Available [facility] Department [address] [place], [address], 01/12/2023 03:08:18 01/12/20 23 01/11/2023 CBC WITH DIFFE RENTI AL/PL ATELE T hemoglobin 13.0 g/dL 11.1-1 5.9 Not Available [facility] Department [address] [place], [address], 01/12/2023 03:08:18 01/12/20 23 01/11/2023 CBC WITH DIFFE RENTI AL/PL ATELE T hematocrit 40.7 % 34.0-4 6.6 Not Available [facility] Department [address] [place], [address], 01/12/2023 03:08:18 01/12/20 23 01/11/2023 CBC WITH DIFFE RENTI AL/PL ATELE T MCV 83 fL 79-97 Not Available [facility] Department [address] [place], [address], 01/12/2023 03:08:18 01/12/20 23 01/11/2023 CBC WITH DIFFE RENTI AL/PL ATELE T MCH 26.6 pg 26.6-3 3.0 Not Available [facility] Department [address] [place], [address], 01/12/2023 03:08:18 01/12/20 23 01/11/2023 CBC WITH DIFFE RENTI AL/PL ATELE T MCHC 31.9 g/dL 31.5-3 5.7 Not Available [facility] Department [address] [place], [address], 01/12/2023 03:08:18 01/12/20 23 01/11/2023 CBC WITH DIFFE RENTI AL/PL ATELE T RDW 13.3 % 11.5-1 4.5 Not Available [facility] Department [address] [place], [address], 01/12/2023 03:08:18 01/12/20 23 01/11/2023 CBC WITH DIFFE RENTI AL/PL ATELE T platelets 311 x10e3 /uL 150-45 0 Not Available [facility] Department [address] [place], [address], 01/12/2023 03:08:18 01/12/2001/11/2023 CBC WITH DIFFE RENTI AL/PL ATELE T neutrophils 54 % notest b. Not Available [facility] Department [address] [place], [address], 01/12/2023 03:08:18 11/08/01/11/2023 CBC WITH DIFFE RENTI AL/PL ATELE T lymphs 33 % notest b. Not Available [facility] Department [address] [place], [address], 01/12/2023 03:08:18 01/12/20 23 01/11/2023 CBC WITH DIFFE RENTI AL/PL ATELE T monocytes 6 % notest b. Not Available [facility] Department [address] [place], [address], 01/12/2023 03:08:18 01/12/20 23 01/11/2023 CBC WITH DIFFE RENTI AL/PL ATELE T eos 6 % notest b. Not Available [facility] Department [address] [place], [address], 01/12/2023 03:08:18 01/12/20 23 01/11/2023 CBC WITH DIFFE RENTI AL/PL ATELE T basos 1 % notest b. Not Available [facility] Department [address] [place], [address], 01/12/2023 03:08:18 01/12/20 23 01/11/2023 CBC WITH DIFFE RENTI AL/PL ATELE T neutrophils (absolute) 5.2 x10e3 /uL 1.4-7. 0 Not Available [facility] Department [address] [place], [address], 01/12/2023 03:08:18 01/12/20 23 01/11/2023 CBC WITH DIFFE RENTI AL/PL ATELE T lymphs (absolute) 3.2 x10e3 /uL 0.7-3. 1 above high normal Not Available [facility] Department [address] [place], [address], 01/12/2023 03:08:18 01/12/20 23 01/11/2023 CBC WITH DIFFE RENTI AL/PL ATELE T monocytes(ab solute) 0.6 x10e3 /uL 0.1-0. 9 Not Available [facility] Department [address] [place], [address], 01/12/2023 03:08:18 01/12/20 23 01/11/2023 CBC WITH DIFFE RENTI AL/PL ATELE T eos (absolute) 0.6 x10e3 /uL 0.0-0. 4 above high normal Not Available [facility] Department [address] [place], [address], 01/12/2023 03:08:18 01/12/20 23 01/11/2023 CBC WITH DIFFE RENTI AL/PL ATELE T baso (absolute) 0.1 x10e3 /uL 0.0-0. 2 Not Available [facility] Department [address] [place], [address], 01/12/2023 03:08:18 01/12/20 23 01/11/2023 CBC WITH DIFFE RENTI AL/PL ATELE T immature granulocytes 0.2 % notest b. Not Available [facility] Department [address] [place], [address], 01/12/2023 03:08:18 01/12/20 23 01/11/2023 CBC WITH DIFFE RENTI AL/PL ATELE T immature grans (abs) 0.0 x10e3 /uL 0.0-0. 1 Not Available [facility] Department [address] [place], [address], 01/12/2023 03:08:18 01/12/20 23 01/11/2023 CBC WITH DIFFE RENTI AL/PL ATELE T NRBC 0 % 0-0 Not Available [facility] Department [address] [place], [address], 01/12/2023 03:08:18 01/12/20 23 01/12/2023 TSH TSH 1.930 uIU/m L 0.450- 4.500 Not Available [facility] ([facility]) [address] [facility] [address], [place], [address], 01/12/2023 08:28:19 02/01/2001/31/2023 Basic metab olic 1999 panel - Serum or Plasm a urea nitrogen [mass/volume ] in serum or plasma 9 mg/dL low: 7mg/dL high: 26mg/d L BUN 9 7 - 26 mg/dL 01/31 2:05 AM [facility]FORT Not Available Not Available 04/26/2024 10:20:52 02/01/2001/31/2023 Basic metab olic 1999 panel - Serum or Plasm a creatinine [mass/volume ] in serum or plasma 0.61 mg/dL low: 0.56mg /dLhig h: 0.96mg /dL Creat inine 0.61 0.56 - 0.96 mg/dL 01/31 2:05 AM [facility] Not Available Not Available 04/26/2024 10:20:52 02/01/2001/31/2023 Basic metab olic 1999 panel - Serum or Plasm a sodium [moles/volum e] in serum or plasma 139 mmol/ L low: 136mmo l/Lhig h: 145mmo l/L Sodiu m 139 136 - 145 mmol/ L 01/31 2:05 AM [facility] AT[facility] COMFORT Not Available Not Available 04/26/2024 10:20:52 02/01/2001/31/2023 Basic metab olic 1999 panel - Serum or Plasm a potassium [moles/volum e] in serum or plasma 3.5 mmol/ L low: 3.5mmo l/Lhig h: 4.5mmo l/L Potas sium 3.5 3.5 - 4.5 mmol/ L 01/31 2:05 AM [facility] Not Available Not Available 04/26/2024 10:20:52 02/01/20 23 01/31/2023 Basic metab olic 2000 panel - Serum or Plasm a chloride [moles/volum e] in serum or plasma 102 mmol/ L low: 98mmol /Lhigh : 107mmo l/L Chlor kate 102 98 - 107 mmol/ L 01/31 2:05 AM [employer] [facility] Not Available Not Available 04/26/2024 10:20:52 02/01/2001/31/2023 Basic metab olic 1999 panel - Serum or Plasm a carbon dioxide, total [moles/volum e] in serum or plasma 29 mmol/ L low: 22mmol /Lhigh : 29mmol /L CO2 29 22 - 29 mmol/ L 01/31 2:05 AM [facility] Not Available Not Available 04/26/2024 10:20:52 02/01/20 23 01/31/2023 Basic metab olic 1999 panel - Serum or Plasm a glucose [mass/volume ] in serum or plasma 91 mg/dL low: 70mg/d Lhigh: 115mg/ dL Gluco se 91 70 - 115 mg/dL 01/31 2:05 AM [facility]OS[facility] COMFORT Not Available Not Available 04/26/2024 10:20:52 02/01/2001/31/2023 Basic metab olic 1999 panel - Serum or Plasm a calcium [moles/volum e] in serum or plasma 8.7 mg/dL low: 8.4mg/ dLhigh : 10.2mg /dL Calci um 8.7 8.4 - 10.2 mg/dL 01/31 2:05 AM [facility] Not Available Not Available 04/26/2024 10:20:52 02/01/2001/31/2023 Basic metab olic 1999 panel - Serum or Plasm a anion gap 8 low: 6high: 16 Anion Gap 8 6 - 16 01/31 2:05 AM [facility] Not Available Not Available 04/26/2024 10:20:52 02/01/20 23 01/31/2023 Basic metab olic 2000 panel - Serum or Plasm a urea nitrogen/cre atinine [mass ratio] in serum or plasma 15 low: 7high: 23 BUN/C reati nine Ratio 15 7 - 23 01/31 2:05 AM [facility] Not Available Not Available 04/26/2024 10:20:52 02/01/20 23 01/31/2023 Basic metab olic 2000 panel - Serum or Plasm a osmolality calculated 286 text: 275 - 295 mOsm/k g Osmol katlyn Bardales lated 286 275 - 295 mOsm/ kg 01/31 2:05 AM [employer] [facility] COM[facility]ORT Not Available Not Available 04/26/2024 10:20:52 02/01/20 23 01/31/2023 Basic metab olic 2000 panel - Serum or Plasm a glomerular filtration rate/1.73 sq M.predicted [volume rate/area] in serum, plasma or blood by creatinine-b ased formula (CKD-epi) text: >=90 mL/min /1.73 m2 eGFR by CKD-E PI >90 >=90 mL/mi n/1.7 3 m2 01/31 2:05 AM [employer] [facility] COM[facility] Not Available Not Available 04/26/2024 10:20:52 02/01/20 23 01/31/2023 Basic metab olic 2000 panel - Serum or Plasm a interpretati on and review of laboratory results Normal Not Available Not Available 04/07 10:20:52 06/09/19 24 06/10/2023 LIPID PANEL cholesterol, total 207 mg/dL 100-19 9 above high normal Not Available [facility] ([facility]) [address] [place], [address], 06/10/2023 07:13:12 06/09/19 24 06/10/2023 LIPID PANEL triglyceride s 112 mg/dL 0-149 Not Available [facility] ([facility]) [address] [place], [address], 06/10/2023 07:13:12 06/09/19 24 06/10/2023 LIPID PANEL HDL cholesterol 51 mg/dL >39 Not Available [facility] ([facility]) [address] [place], [address], 06/10/2023 07:13:12 06/09/19 24 06/10/2023 LIPID PANEL VLDL cholesterol ernesto 20 mg/dL 5-40 Not Available [facility] ([facility]) [address] [facility] [place], [address], 06/10/2023 07:13:12 06/09/19 24 06/10/2023 LIPID PANEL LDL chol calc ([facility]) 136 mg/dL 0-99 above high normal Not Available [facility] ([facility]) [address] [facility] [place], [address], 06/10/2023 07:13:12 06/09/19 24 06/10/2023 COMP. METAB OLIC PANEL (14) glucose 78 mg/dL 70-99 Not Available [facility] ([facility]) [address] [facility] [place], [address], 06/10/2023 07:13:13 06/09/19 24 06/10/2023 COMP. METAB OLIC PANEL (14) BUN 13 mg/dL 6-24 Not Available [facility] ([facility]) [address] [place], [address], 06/10/2023 07:13:13 06/09/19 24 06/10/2023 COMP. METAB OLIC PANEL (14) creatinine 0.85 mg/dL 0.57-1 .00 Not Available [facility] ([facility]) [address] [facility] [place], [address], 06/10/2023 07:13:13 06/09/19 24 06/10/2023 COMP. METAB OLIC PANEL (14) eGFR 83 mL/mi n/1.7 3 >59 Not Available [facility] ([facility]) [address] [facility] [place], [address], 06/10/2023 07:13:13 06/09/19 24 06/10/2023 COMP. METAB OLIC PANEL (14) BUN/creatini ne ratio 15 9-23 Not Available [facility] ([facility]) [address] [place], [address], 06/10/2023 07:13:13 06/09/19 24 06/10/2023 COMP. METAB OLIC PANEL (14) sodium 136 mmol/ L 134-14 4 Not Available [facility] ([facility]) [address] [facility] [place], [address], 06/10/2023 07:13:13 06/09/19 24 06/10/2023 COMP. METAB OLIC PANEL (14) potassium 4.2 mmol/ L 3.5-5. 2 Not Available [facility] ([facility]) [address] [facility] [address] [place], [place], [address], 06/10/2023 07:13:13 06/09/19 24 06/10/2023 COMP. METAB OLIC PANEL (14) chloride 97 mmol/ L 96-106 Not Available [facility] ([facility]) [address] [facility] [address] [place], [place], [address], 06/10/2023 07:13:13 06/09/19 24 06/10/2023 COMP. METAB OLIC PANEL (14) carbon dioxide, total 26 mmol/ L 20-29 Not Available [facility] ([facility]) [address] [place], [address], 06/10/2023 07:13:13 06/09/19 24 06/10/2023 COMP. METAB OLIC PANEL (14) calcium 9.4 mg/dL 8.7-10 .2 Not Available [facility] ([facility]) [address] [place], [address], 06/10/2023 07:13:13 06/09/19 24 06/10/2023 COMP. METAB OLIC PANEL (14) protein, total 7.4 g/dL 6.0-8. 5 Not Available [facility] ([facility]) [address] [facility] [place], [address], 06/10/2023 07:13:13 06/09/19 24 06/10/2023 COMP. METAB OLIC PANEL (14) albumin 4.5 g/dL 3.9-4. 9 Not Available [facility] ([facility]) [address] [facility] [place], [address], 06/10/2023 07:13:13 06/09/19 24 06/10/2023 COMP. METAB OLIC PANEL (14) globulin, total 2.9 g/dL 1.5-4. 5 Not Available [facility] ([facility]) [address] [facility] [place], [address], 06/10/2023 07:13:13 06/09/19 24 06/10/2023 COMP. METAB OLIC PANEL (14) A/G ratio 1.6 1.2-2. 2 Not Available [facility] ([facility]) [address] [facility], [place], [address], 06/10/2023 07:13:13 06/09/19 24 06/10/2023 COMP. METAB OLIC PANEL (14) bilirubin, total 0.5 mg/dL 0.0-1. 2 Not Available [facility] ([facility]) [address] [facility] [place], [address], 06/10/2023 07:13:13 06/09/19 24 06/10/2023 COMP. METAB OLIC PANEL (14) alkaline phosphatase 108 IU/L 44-121 Not Available [facility] ([facility]) [address] [facility] [place], [address], 06/10/2023 07:13:13 06/09/19 24 06/10/2023 COMP. METAB OLIC PANEL (14) AST (SGOT) 17 IU/L 0-40 Not Available [facility] ([facility]) [address] [facility] [place], [address], 06/10/2023 07:13:13 06/09/19 24 06/10/2023 COMP. METAB OLIC PANEL (14) ALT (SGPT) 17 IU/L 0-32 Not Available [facility] ([facility]) [address] [facility], [place], [address], 06/10/2023 07:13:13 06/09/19 24 06/10/2023 CBC WITH DIFFE RENTI AL/PL ATELE T WBC 12.1 x10e3 /uL 3.4-10 .8 above high normal Not Available [facility] ([facility]) [address] [facility], [place], [address], 06/10/2023 07:13:14 06/09/19 24 06/10/2023 CBC WITH DIFFE RENTI AL/PL ATELE T RBC 4.80 x10e6 /uL 3.77-5 .28 Not Available [facility] ([facility]) [address] [facility], [place], [address], 06/10/2023 07:13:14 06/09/19 24 06/10/2023 CBC WITH DIFFE RENTI AL/PL ATELE T hemoglobin 13.5 g/dL 11.1-1 5.9 Not Available [facility] ([facility]) [address] [facility], [place], [address], 06/10/2023 07:13:14 06/09/19 24 06/10/2023 CBC WITH DIFFE RENTI AL/PL ATELE T hematocrit 40.1 % 34.0-4 6.6 Not Available [facility] ([facility]) [address] [facility], [place], [address], 06/10/2023 07:13:14 06/09/19 24 06/10/2023 CBC WITH DIFFE RENTI AL/PL ATELE T MCV 84 fL 79-97 Not Available [facility] ([facility]) [address] [facility], [place], [address], 06/10/2023 07:13:14 06/09/19 24 06/10/2023 CBC WITH DIFFE RENTI AL/PL ATELE T MCH 28.1 pg 26.6-3 3.0 Not Available [facility] ([facility]) [address] [facility], [place], [address], 06/10/2023 07:13:14 06/09/19 24 06/10/2023 CBC WITH DIFFE RENTI AL/PL ATELE T MCHC 33.7 g/dL 31.5-3 5.7 Not Available [facility] ([facility]) [address] [facility], [place], [address], 06/10/2023 07:13:14 06/09/19 24 06/10/2023 CBC WITH DIFFE RENTI AL/PL ATELE T RDW 14.0 % 11.7-1 5.4 Not Available [facility] ([facility]) [address] [facility], [place], [address], 06/10/2023 07:13:14 06/09/19 24 06/10/2023 CBC WITH DIFFE RENTI AL/PL ATELE T platelets 303 x10e3 /uL 150-45 0 Not Available [facility] ([facility]) [address] [facility], [place], [address], 06/10/2023 07:13:14 06/09/19 24 06/10/2023 CBC WITH DIFFE RENTI AL/PL ATELE T neutrophils 62 % notest ab. Not Available [facility] ([facility]) [address] [place], [address], 06/10/2023 07:13:14 06/09/19 24 06/10/2023 CBC WITH DIFFE RENTI AL/PL ATELE T lymphs 25 % notest ab. Not Available [facility] ([facility]) [address] [place], [address], 06/10/2023 07:13:14 06/09/19 24 06/10/2023 CBC WITH DIFFE RENTI AL/PL ATELE T monocytes 6 % notest ab. Not Available [facility] ([facility]) [address] [place], [address], 06/10/2023 07:13:14 06/09/19 24 06/10/2023 CBC WITH DIFFE RENTI AL/PL ATELE T eos 6 % notest ab. Not Available [facility] ([facility]) [address] [facility], [place], [address], 06/10/2023 07:13:14 06/09/19 24 06/10/2023 CBC WITH DIFFE RENTI AL/PL ATELE T basos 1 % notest ab. Not Available [facility] ([facility]) [address] [facility], [place], [address], 06/10/2023 07:13:14 06/09/19 24 06/10/2023 CBC WITH DIFFE RENTI AL/PL ATELE T neutrophils (absolute) 7.6 x10e3 /uL 1.4-7. 0 above high normal Not Available [facility] ([facility]) [address] [facility], [place], [address], 06/10/2023 07:13:14 06/09/19 24 06/10/2023 CBC WITH DIFFE RENTI AL/PL ATELE T lymphs (absolute) 3.0 x10e3 /uL 0.7-3. 1 Not Available [facility] ([facility]) [address] [facility], [place], [address], 06/10/2023 07:13:14 06/09/19 24 06/10/2023 CBC WITH DIFFE RENTI AL/PL ATELE T monocytes(ab solute) 0.7 x10e3 /uL 0.1-0. 9 Not Available [facility] ([facility]) [address] [facility], [place], [address], 06/10/2023 07:13:14 06/09/19 24 06/10/2023 CBC WITH DIFFE RENTI AL/PL ATELE T eos (absolute) 0.7 x10e3 /uL 0.0-0. 4 above high normal Not Available [facility] ([facility]) [address] [facility], [place], [address], 06/10/2023 07:13:14 06/09/19 24 06/10/2023 CBC WITH DIFFE RENTI AL/PL ATELE T baso (absolute) 0.1 x10e3 /uL 0.0-0. 2 Not Available [facility] ([facility]) [address] [facility], [place], [address], 06/10/2023 07:13:14 06/09/19 24 06/10/2023 CBC WITH DIFFE RENTI AL/PL ATELE T immature granulocytes 0 % notest ab. Not Available [facility] ([facility]) [address] [facility], [place], [address], 06/10/2023 07:13:14 06/09/19 24 06/10/2023 CBC WITH DIFFE RENTI AL/PL ATELE T immature grans (abs) 0.0 x10e3 /uL 0.0-0. 1 Not Available [facility] ([facility]) [address] [facility], [place], [address], 06/10/2023 07:13:14 05/10/19 25 05/10/2024 TSH+F REE T4 TSH 2.780 uIU/m L 0.450- 4.500 Not Available [facility] ([facility]) [address] [place], [address], 05/10/2024 09:14:42 05/10/19 25 05/10/2024 TSH+F REE T4 T4,free(dire ct) 1.07 NG/dL 0.82-1 .77 Not Available [facility] ([facility]) [address] [facility], [place], [address], 05/10/2024 09:14:42 05/10/19 25 05/10/2024 LIPID PANEL cholesterol, total 180 mg/dL 100-19 9 Not Available [facility] ([facility]) [address] [facility], [place], [address], 05/10/2024 09:14:43 05/10/19 25 05/10/2024 LIPID PANEL triglyceride s 69 mg/dL 0-149 Not Available [facility] ([facility]) [address] [place], [address], 05/10/2024 09:14:43 05/10/19 25 05/10/2024 LIPID PANEL HDL cholesterol 40 mg/dL >39 Not Available [facility] ([facility]) [address] [facility] [place], [address], 05/10/2024 09:14:43 05/10/19 25 05/10/2024 LIPID PANEL VLDL cholesterol ernesto 13 mg/dL 5-40 Not Available [facility] ([facility]) [address] [place], [address], 05/10/2024 09:14:43 05/10/19 25 05/10/2024 LIPID PANEL LDL chol calc ([facility]) 127 mg/dL 0-99 above high normal Not Available [facility] ([facility]) [address] [place], [address], 05/10/2024 09:14:43 05/10/19 25 05/10/2024 COMP. METAB OLIC PANEL (14) glucose 98 mg/dL 70-99 Not Available [facility] ([facility]) [address] [place], [address], 05/10/2024 09:14:45 05/10/19 25 05/10/2024 COMP. METAB OLIC PANEL (14) BUN 11 mg/dL 6-24 Not Available [facility] ([facility]) [address] [place], [address], 05/10/2024 09:14:45 05/10/19 25 05/10/2024 COMP. METAB OLIC PANEL (14) creatinine 0.85 mg/dL 0.57-1 .00 Not Available [facility] ([facility]) [address] [facility] [place], [address], 05/10/2024 09:14:45 05/10/19 25 05/10/2024 COMP. METAB OLIC PANEL (14) eGFR 83 mL/mi n/1.7 3 >59 Not Available [facility] ([facility]) [address] [facility] [place], [address], 05/10/2024 09:14:45 05/10/19 25 05/10/2024 COMP. METAB OLIC PANEL (14) BUN/creatini ne ratio 13 9-23 Not Available [facility] ([facility]) [address] [facility] [place], [address], 05/10/2024 09:14:45 05/10/19 25 05/10/2024 COMP. METAB OLIC PANEL (14) sodium 141 mmol/ L 134-14 4 Not Available [facility] ([facility]) [address] [facility] [place], [address], 05/10/2024 09:14:45 05/10/19 25 05/10/2024 COMP. METAB OLIC PANEL (14) potassium 4.0 mmol/ L 3.5-5. 2 Not Available [facility] ([facility]) [address] [facility] [place], [address], 05/10/2024 09:14:45 05/10/19 25 05/10/2024 COMP. METAB OLIC PANEL (14) chloride 100 mmol/ L 96-106 Not Available [facility] ([facility]) [address] [facility] [place], [address], 05/10/2024 09:14:45 05/10/19 25 05/10/2024 COMP. METAB OLIC PANEL (14) carbon dioxide, total 26 mmol/ L 20-29 Not Available [facility] ([facility]) [address] [place], [address], 05/10/2024 09:14:45 05/10/19 25 05/10/2024 COMP. METAB OLIC PANEL (14) calcium 9.3 mg/dL 8.7-10 .2 Not Available [facility] ([facility]) [address] [place], [address], 05/10/2024 09:14:45 05/10/19 25 05/10/2024 COMP. METAB OLIC PANEL (14) protein, total 7.2 g/dL 6.0-8. 5 Not Available [facility] ([facility]) [address] [facility] [place], [address], 05/10/2024 09:14:45 05/10/19 25 05/10/2024 COMP. METAB OLIC PANEL (14) albumin 4.4 g/dL 3.8-4. 9 Not Available [facility] ([facility]) [address] [facility] [place], [address], 05/10/2024 09:14:45 05/10/19 25 05/10/2024 COMP. METAB OLIC PANEL (14) globulin, total 2.8 g/dL 1.5-4. 5 Not Available [facility] ([facility]) [address] [facility] [place], [address], 05/10/2024 09:14:45 05/10/19 25 05/10/2024 COMP. METAB OLIC PANEL (14) bilirubin, total 0.4 mg/dL 0.0-1. 2 Not Available [facility] ([facility]) [address] [facility] [place], [address], 05/10/2024 09:14:45 05/10/19 25 05/10/2024 COMP. METAB OLIC PANEL (14) alkaline phosphatase 108 IU/L 44-121 Not Available [facility] ([facility]) [address] [facility] [place], [address], 05/10/2024 09:14:45 05/10/19 25 05/10/2024 COMP. METAB OLIC PANEL (14) AST (SGOT) 17 IU/L 0-40 Not Available [facility] ([facility]) [address] [facility], [place], [address], 05/10/2024 09:14:45 05/10/19 25 05/10/2024 COMP. METAB OLIC PANEL (14) ALT (SGPT) 12 IU/L 0-32 Not Available [facility] ([facility]) [address] [facility], [place], [address], 05/10/2024 09:14:45 05/10/19 25 05/10/2024 HEMOG LOBIN A1C hemoglobin A1C 5.8 % 4.8-5. 6 above high normal Predi abete s: 5.7 - 6.4 Diabe jovon: >6.4 Glyce mynor contr ol for adult s with diabe jovon: <7.0 Not Available [facility] ([facility]) [address] [facility], [place], [address], 05/10/2024 09:14:46 05/10/19 25 05/10/2024 VITAM IN B12 vitamin B12 567 pg/mL 232-12 45 Not Available [facility] ([facility]) [address] [place], [address], 05/10/2024 09:14:47 05/10/19 25 05/10/2024 MAGNE SIUM magnesium 2.3 mg/dL 1.6-2. 3 Not Available [facility] ([facility]) [address] [place], [address], 05/10/2024 09:14:48 05/10/19 25 05/10/2024 CBC WITH DIFFE RENTI AL/PL ATELE T WBC 9.2 x10e3 /uL 3.4-10 .8 Not Available [facility] ([facility]) [address] [place], [address], 05/10/2024 09:14:49 05/10/19 25 05/10/2024 CBC WITH DIFFE RENTI AL/PL ATELE T RBC 4.96 x10e6 /uL 3.77-5 .28 Not Available [facility] ([facility]) [address] [facility] [place], [place], [address], 05/10/2024 09:14:49 05/10/19 25 05/10/2024 CBC WITH DIFFE RENTI AL/PL ATELE T hemoglobin 14.3 g/dL 11.1-1 5.9 Not Available [facility] ([facility]) [address] [facility], [place], [address], 05/10/2024 09:14:49 05/10/19 25 05/10/2024 CBC WITH DIFFE RENTI AL/PL ATELE T hematocrit 43.0 % 34.0-4 6.6 Not Available [facility] ([facility]) [address] [facility], [place], [address], 05/10/2024 09:14:49 05/10/1905/10/2024 CBC WITH DIFFE RENTI AL/PL ATELE T MCV 87 fL 79-97 Not Available [facility] ([facility]) [address] [place], [address], 05/10/2024 09:14:49 05/10/1905/10/2024 CBC WITH DIFFE RENTI AL/PL ATELE T MCH 28.8 pg 26.6-3 3.0 Not Available [facility] ([facility]) [address] [place], [address], 05/10/2024 09:14:49 05/10/19 25 05/10/2024 CBC WITH DIFFE RENTI AL/PL ATELE T MCHC 33.3 g/dL 31.5-3 5.7 Not Available [facility] ([facility]) [address] [place], [address], 05/10/2024 09:14:49 05/10/19 25 05/10/2024 CBC WITH DIFFE RENTI AL/PL ATELE T RDW 13.3 % 11.7-1 5.4 Not Available [facility] ([facility]) [address], [place], [address], 05/10/2024 09:14:49 05/10/19 25 05/10/2024 CBC WITH DIFFE RENTI AL/PL ATELE T platelets 333 x10e3 /uL 150-45 0 Not Available [facility] ([facility]) [address] [facility], [place], [address], 05/10/2024 09:14:49 05/10/19 25 05/10/2024 CBC WITH DIFFE RENTI AL/PL ATELE T neutrophils 58 % notest ab. Not Available [facility] ([facility]) [address] [facility] [place], [place], [address], 05/10/2024 09:14:49 05/10/19 25 05/10/2024 CBC WITH DIFFE RENTI AL/PL ATELE T lymphs 30 % notest ab. Not Available [facility] ([facility]) [address] [facility], [place], [address], 05/10/2024 09:14:49 05/10/19 25 05/10/2024 CBC WITH DIFFE RENTI AL/PL ATELE T monocytes 7 % notest ab. Not Available [facility] ([facility]) [address] [facility], [place], [address], 05/10/2024 09:14:49 05/10/19 25 05/10/2024 CBC WITH DIFFE RENTI AL/PL ATELE T eos 4 % notest ab. Not Available [facility] ([facility]) [address] [facility], [place], [address], 05/10/2024 09:14:49 05/10/19 25 05/10/2024 CBC WITH DIFFE RENTI AL/PL ATELE T basos 1 % notest ab. Not Available [facility] ([facility]) [address] [facility] [place], [place], [address], 05/10/2024 09:14:49 05/10/19 25 05/10/2024 CBC WITH DIFFE RENTI AL/PL ATELE T neutrophils (absolute) 5.3 x10e3 /uL 1.4-7. 0 Not Available [facility] ([facility]) [address] [facility] [place], [place], [address], 05/10/2024 09:14:49 05/10/1905/10/2024 CBC WITH DIFFE RENTI AL/PL ATELE T lymphs (absolute) 2.8 x10e3 /uL 0.7-3. 1 Not Available [facility] ([facility]) [address] [facility] [place], [place], [address], 05/10/2024 09:14:49 05/10/19 25 05/10/2024 CBC WITH DIFFE RENTI AL/PL ATELE T monocytes(ab solute) 0.7 x10e3 /uL 0.1-0. 9 Not Available [facility] ([facility]) [address] [place], [address], 05/10/2024 09:14:49 05/10/1905/10/2024 CBC WITH DIFFE RENTI AL/PL ATELE T eos (absolute) 0.4 x10e3 /uL 0.0-0. 4 Not Available [facility] ([facility]) [address] [place], [address], 05/10/2024 09:14:49 05/10/19 25 05/10/2024 CBC WITH DIFFE RENTI AL/PL ATELE T baso (absolute) 0.1 x10e3 /uL 0.0-0. 2 Not Available [facility] ([facility]) [address] [place], [address], 05/10/2024 09:14:49 05/10/19 25 05/10/2024 CBC WITH DIFFE RENTI AL/PL ATELE T immature granulocytes 0 % notest ab. Not Available [facility] ([facility]) [address] [facility], [place], [address], 05/10/2024 09:14:49 05/10/19 25 05/10/2024 CBC WITH DIFFE RENTI AL/PL ATELE T immature grans (abs) 0.0 x10e3 /uL 0.0-0. 1 Not Available [facility] ([facility]) [address] [facility] [place], [place], [address], 05/10/2024 09:14:49 05/10/19 25 05/10/2024 VITAM IN D, 25-HY DROXY vitamin D, 25-hydroxy 6.8 NG/mL 30.0-1 00.0 below low normal Vitam in D defic iency has been defin ed by the Insti tute of Medic ine and an Endoc rine Socie ty pract ice guide line as a level of serum 25-OH vitam in D less than 20 ng/mL (1,2) . The Endoc rine Socie ty went on to furth er defin e vitam in D insuf ficie ncy as a level betwe en 21 and 29 ng/mL (2). 1. IOM (Inst itute of Medic ine). 2009. Dieta ry refer ence nena es for calci um and D. Amando heredia [place]: [employer] . 2. Clotilde hull MF, Brit maxwell [place], Lisa off-F errar i ROSS, et al. Evalu ation , treat ment, and preve ntion of vitam in D defic iency : an Endoc rine Socie ty clini ernesto pract ice guide line. JCEM. 2010; 96(7) :1911 -30. Not Available [facility] ([facility]) [address] [facility] [place], [place], [address], 05/10/2024 09:14:51 05/10/19 25 05/10/2024 B-TYP E NATRI URETI C PEPTI DE B-type natriuretic peptide 10.2 pg/mL 0.0-10 0.0 Sieme ns [facility] metho dolog y Not Available [facility] ([facility]) [address] [facility] [place], [place], [address], 05/10/2024 10:37:25 05/10/19 25 05/09/2024 drug scree n, urine Methamphetam ine Negati ve Not Available In-Office Order Internal Use Only DO Not Attach Compendium DO Not Attach Compendium, Do Not Delete/merge, 05/09/2024 09:40:14 05/10/19 25 05/09/2024 drug scree n, urine THC Positi ve Not Available In-Office Order Internal Use Only DO Not Attach Compendium DO Not Attach Compendium, Do Not Delete/merge, 05/09/2024 09:40:14 05/10/19 25 05/09/2024 drug scree n, urine Cocaine (Twyla) Negati ve Not Available In-Office Order Internal Use Only DO Not Attach Compendium DO Not Attach Compendium, Do Not Delete/merge, 05/09/2024 09:40:14 05/10/19 25 05/09/2024 drug scree n, urine Benzodiazepi ne (Bzo) Negati ve Not Available In-Office Order Internal Use Only DO Not Attach Compendium DO Not Attach Compendium, Do Not Delete/merge, 05/09/2024 09:40:14 05/10/19 25 05/09/2024 drug scree n, urine Methadone (Mtd) Negati ve Not Available In-Office Order Internal Use Only DO Not Attach Compendium DO Not Attach Compendium, Do Not Delete/merge, 05/09/2024 09:40:14 05/10/19 25 05/09/2024 drug scree n, urine Buprenorphin e (Bup) Negati ve Not Available In-Office Order Internal Use Only DO Not Attach Compendium DO Not Attach Compendium, Do Not Delete/merge, 05/09/2024 09:40:14 05/10/19 25 05/09/2024 drug scree n, urine Oxycodone (Oxy) Negati ve Not Available In-Office Order Internal Use Only DO Not Attach Compendium DO Not Attach Compendium, Do Not Delete/merge, 05/09/2024 09:40:14 05/10/19 25 05/09/2024 drug scree n, urine Barbiturates (Bar) Negati ve Not Available In-Office Order Internal Use Only DO Not Attach Compendium DO Not Attach Compendium, Do Not Delete/merge, 05/09/2024 09:40:14 05/10/19 25 05/09/2024 drug scree n, urine MDMA (Ecstacy) Negati ve Not Available In-Office Order Internal Use Only DO Not Attach Compendium DO Not Attach Compendium, Do Not Delete/merge, 05/09/2024 09:40:14 05/10/1905/09/2024 drug scree n, urine Amphetamines (Amp) Negati ve Not Available In-Office Order Internal Use Only DO Not Attach Compendium DO Not Attach Compendium, Do Not Delete/merge, 05/09/2024 09:40:14 05/10/19 25 05/09/2024 drug scree n, urine Opiates (opi) Negati ve Not Available In-Office Order Internal Use Only DO Not Attach Compendium DO Not Attach Compendium, Do Not Delete/merge, 05/09/2024 09:40:14 05/10/19 25 05/09/2024 drug scree n, urine Phencyclidin e (Pcp) Negati ve Not Available In-Office Order Internal Use Only DO Not Attach Compendium DO Not Attach Compendium, Do Not Delete/merge, 05/09/2024 09:40:14 05/10/19 25 05/09/2024 drug scree n, urine Tricyclic Antidepressa nts Negati ve Not Available In-Office Order Internal Use Only DO Not Attach Compendium DO Not Attach Compendium, Do Not Delete/merge, 05/09/2024 09:40:14 05/10/19 25 05/09/2024 drug scree n, urine Fentanyl Negati ve Not Available In-Office Order Internal Use Only DO Not Attach Compendium DO Not Attach Compendium, Do Not Delete/merge, [id number] 05/09/2024 09:40:14 01/14/20 23 01/12/2023 XR, chest , 2 view No observ ation record ed. [facility] [address] [place], [address], 01/13/2023 14:20:38 01/14/20 23 01/13/2023 elect alicia diogr am No observ ation record ed. [email or web address] (Cardiology) [address] [place], [address], 01/17/2023 17:13:45 06/08/19 24 06/07/2023 XR, hand No observ ation record ed. [facility] [address], [place], [address], 06/09/2023 10:53:59 06/09/19 24 06/07/2023 XR, finge r(s) No observ ation record ed. [facility] [address], [place], [address], 06/12/2023 10:41:07 12/08/19 24 12/08/2023 XR, foot No observ ation record ed. [facility] [address], [place], [address], 12/08/2023 14:13:01 Result Notes None recorded. Problems Name Problem SNOMED Code Status Onset Date Resolution Date Notes Provider Name and Address Organization Details Recorded Time Hiatal hernia with gastroes ophageal reflux 460221320 Active 2016 h/o fundoplic ation 10/2013-re do fundoplic ation 06/21 Yanet Sigala MD Attn: Dannie g,[address] [facility], [place], [address], [place] [facility] 2 09:54:25 Hyperlip idemia 94356672 Active 2020 Yanet Sigala MD Attn: Dannie mendoza,[address] [facility], [place], [address], [place] [facility] 2 09:54:25 Hyperten sive disorder 19388924 Active 2020 Yanet Sigala MD Attn: Dannie mendoza,[address] [facility], [place], [address], [place] [facility] 2 09:54:25 Degenera tion of lumbar interver tebral disc 11916848 Active 2021 sees pain mx- MRI 07/25-armani re DDD with foraminal stenosis - s/p sx 01/26 Yanet Sigala MD Attn: Dannie mendoza,[address] [facility], [place], [address], [place] [facility] 4 12:17:55 Obesity 780512379 Active 2021 Yanet Sigala MD Attn: Dannie mendoza,[address] [facility], [place], [address], [place] [facility] 2 10:04:41 Mixed anxiety and depressi ve disorder 850616269 Active 2016 Yanet Sigala MD Attn: Dannie mendoza,[address] [facility], [place], [address], [place] [facility] 2 09:54:25 Anemia 221186103 Active 2016 Christina Gannon LPN null, [place] [facility] 2 15:31:17 Neck pain 09532549 Active 2016 xray -DDD Yanet Sigala MD Attn: Dannie mendoza,[address] [facility], [place], [address], [place] [facility] 2 09:54:25 Elevated blood-pr essure reading without diagnosi s of hyperten zainab [id number] Completed 201609/22/2020 Yanet Sigala MD Attn: Dannie mendoza,[address] [facility], [place], [address], [place] - [facility] 1 11:06:44 Notes:Some problems listed i n Document: #[id number] could not be added to this patient's chart. Please review this document and add these problems to the patient's chart manually as needed. Problem Notes None recorded. Procedures Surgical History Date Name Laterality Status Provider Name and Address Organization Details Recorded Time 3 lumbar spinal fusion completed Yuliya Broderick [facility] 01/30/2023 14:27:05 1 Caesarean Section completed Edwige Sykes [facility] 10/07/2016 14:08:40 7 Knee Surgery completed Edwige Sykes [facility] 10/07/2016 14:09:20 7 Dilation and Curettage completed Edwige Sykes [facility] 10/07/2016 14:08:57 Hernia Repair completed Ivana Rowe [place] - [facility] 04/26/2018 09:09:26 Imaging Results Imaging Date Name Status LastModified by Organization Details LastModified Time 01/12/2023 XR, chest, [facility] [address] [place], [address], 01/13/2023 14:20:38 01/13/2023 electrocardiogram completed [facility] (Cardiology) [address] [place], [address], 01/17/2023 17:13:45 06/07/2023 XR, hand completed [facility] [address] [place], [address], 06/09/2023 10:53:59 06/07/2023 XR, finger(s) completed [facility] [address] [place], [address], 06/12/2023 10:41:07 12/08/2023 XR, foot completed romie Kang [facility] [address], [place], [address], 12/08/2023 14:13:01 Procedure Notes None recorded. Medical Equipment None Reported. Allergies Allergen ID Allergen Name Allergen Category Reaction Reaction Severity Criticality Documentation Date Start Date Code Code System Note Provider Name and Address Organization Details Recorded Time [id number] iodine medicatio n anaphylax is rash Not available Not available Not available 05/24/2017 5933 RxNorm Not Available Not Available Not Available 591858 lamotrigi ne medicatio n rash Not available Not available 05/24/2017 12192 RxNorm Not Available Not Available Not Available 279605 meloxicam medicatio n insomnia Not available Not available 03/15/2021 52180 RxNorm cause s night terro rs Not Available Not Available Not Available 11251 iodine medicatio n rash Not available Not available 10/07/2016 5933 RxNorm Not Available Not Available Not Available 79267 shellfish derived food,medi cation rash Not available Not available 10/07/2016 49092 UNK Not Available Not Available Not Available 77259 Lamictal medicatio n rash Not available Not available 10/07/2016 38802 2 RxNorm Not Available Not Available Not Available Medications Name Sig Start Date Stop Date Status Note LastModified by Organization Details LastModified Time Prescript ion - Renewal active Not Available Not Available Not Available celecoxib 200 mg capsule TAKE 1 CAPSULE BY MOUTH EVERY MORNING WITH FOOD 06/08 completed -pt to hold Not Available Not Available Not Available cyclobenz aprine 10 mg tablet Take 1 tablet every day by oral route as needed for 20 days. 05/07 completed fatigue Not Available Not Available Not Available amoxicill in 500 mg capsule 10/07 completed Not Available Not Available Not Available methocarb álvaro 500 mg tablet TAKE 1 TABLET BY MOUTH THREE TIMES DAILY NEEDED active Not Available Not Available No t Available citalopra m 40 mg tablet TAKE 1 TABLET BY MOUTH EVERY DAY 2024 active Not Available Not Available Not Avai lable trazodone 50 mg tablet TAKE 1 TABLET BY MOUTH AT BEDTIME 08/24 completed not taking Not Available Not Available Not Available cetirizin e 10 mg tablet 10/07 completed Not Available Not Available Not Available azithromy rickie 250 mg tablet TAKE 2 TABLETS (500 MG) BY ORAL ROUTE ONCE DAILY FOR 1 DAY THEN 1 TABLET (250 MG) BY ORAL ROUTE ONCE DAILY FOR 4 DAYS 02/15 completed Not Available Not Available Not Available Lidocaine Viscous 2 % mucosal solution 08/24 completed Not Available Not Available Not Available tizanidin e 4 mg tablet 09/22 completed PRN, not taking Not Available Not Available Not Available hydrocodo ne 5 mg-acetam inophen 325 mg tablet TAKE 1 TABLET BY MOUTH TWICE DAILY NEEDED FOR SEVERE PAIN 06/08 completed PRN Not Available Not Available Not Available sucralfat e 1 gram tablet 08/24 completed Not Available Not Available Not Available prednison e 20 mg tablet 01/09 completed Not Available Not Available Not Available naproxen 250 mg tablet Take 1 tablet twice a day by oral route as needed for 30 days. 2024 active Not Available Not Available Not Avai lable Tylenol Arthritis Pain 650 mg tablet,ex tended release Take 2 tablets every 8 hours by oral route as needed for 30 days. 2024 active Not Available Not Available Not Avai lable Advair Diskus 100 mcg-50 mcg/dose powder for inhalatio n Inhale 1 puff twice a day by inhalati on route. 2024 active Not Available Not Available Not Avai lable acetamino phen 300 mg-codein e 30 mg tablet TAKE 1 TABLET BY MOUTH 1 TO 2 TIMES DAILY NEEDED FOR SEVERE PAIN 09/01 completed Not Available Not Available Not Available amlodipin e 5 mg tablet TAKE 1 TABLET BY MOUTH EVERY DAY 01/09 completed not taking Not Available Not Available Not Available sulfameth oxazole 800 mg-trimet hoprim 160 mg tablet TK 1 T PO Q 12 H FOR 7 DAYS 06/08 completed Not Available Not Available Not Available omeprazol e 40 mg capsule,d elayed release 08/24 completed Not Available Not Available Not Available tramadol 50 mg tablet 10/07 completed Not Available Not Available Not Available spironola ctone 25 mg tablet TAKE 1 TABLET BY MOUTH EVERY DAY 2024 active Not Available Not Available Not Avai lable amoxicill in 500 mg tablet 06/08 completed Not Available Not Available Not Available ondansetr on 8 mg disintegr ating tablet 10/07 completed Not Available Not Available Not Available baclofen 20 mg tablet TAKE 1 TABLET BY MOUTH TWICE DAILY 01/09 completed Not Available Not Available Not Available Mobic 15 mg tablet Take 1 tablet every day by oral route as needed with meal for pain for 20 days. 03/15 completed Not Available Not Available Not Available alprazola m 0.5 mg tablet TAKE 1 TABLET BY MOUTH ABOUT 40 MINUTES BEFORE PROCEDUR E 09/01 completed Not Available Not Available Not Available amoxicill in 875 mg tablet 10/07 completed Not Available Not Available Not Available potassium chloride ER 20 mEq tablet,ex tended release(p art/cryst ) 03/19 completed Not Available Not Available Not Available lorazepam 0.5 mg tablet 12/16 completed Not Available Not Available Not Available gentamici n 0.3 % eye drops 04/19 completed Not Available Not Available Not Available diazepam 2 mg tablet TAKE 1 TABLET BY MOUTH 1 HOUR BEFORE PROCEDUR E 04/18 completed PRN/ pain mx Not Available Not Available Not Available hydrocodo ne 7.5 mg-acetam inophen 325 mg tablet TAKE 1 TABLET BY MOUTH EVERY 4 TO 6 HOURS NEEDED FOR PAIN 06/08 completed not taking Not Available Not Available Not Available erythromy rickie 5 mg/gram (0.5 %) eye ointment 10/07 completed Not Available Not Available Not Available ferrous sulfate 325 mg (65 mg iron) tablet Take 1 tablet every other day by oral route. 11/09 completed as needed Not Available Not Available Not Available esomepraz ole magnesium 40 mg capsule,d elayed release Take 40 mg by oral route. 05/24 completed Not Available Not Available Not Available ranitidin e 150 mg tablet Take 300 mg every day by oral route. 08/24 completed Not Available Not Available Not Available dexametha sone 4 mg tablet 12/16 completed Not Available Not Available Not Available buspirone 10 mg tablet TAKE ONE TABLET BY MOUTH TWO TIMES A DAY NEEDED 01/09 completed not taking Not Available Not Available Not Available prednison e 50 mg tablet TAKE 1 TABLET BY MOUTH DAILY FOR 5 DAYS 03/10 completed Not Available Not Available Not Available monteluka st 10 mg tablet TAKE 1 TABLET BY MOUTH EVERY DAY 2024 active Not Available Not Available Not Avai lable hydroxyzi ne HCl 25 mg tablet 10/07 completed Not Available Not Available Not Available ergocalci ferol (vitamin D2) 1,250 mcg (50,000 unit) capsule Take 1 capsule every week by oral route. 2024 active Not Available Not Available Not Avai lable ibuprofen 600 mg tablet Take 1 tablet twice a day by oral route with meals. 09/22 completed otc prn Not Available Not Available Not Available levofloxa rickie 500 mg tablet 10/07 completed Not Available Not Available Not Available methylpre dnisolone 4 mg tablets in a dose pack FOLLOW PACKAGE DIRECTIO NS FOR 6 DAYS 01/04 completed Not Available Not Available Not Available albuterol sulfate HFA 90 mcg/actua tion aerosol inhaler INHALE 2 PUFFS BY MOUTH EVERY 6 HOURS NEEDED 2024 active Not Available Not Available Not Avai lable losartan 50 mg-hydroc hlorothia zide 12.5 mg tablet TAKE 1 TABLET BY MOUTH EVERY DAY active Not Available Not Available No t Available ondansetr on 4 mg disintegr ating tablet 08/24 completed Not Available Not Available Not Available fluticaso ne propionat e 50 mcg/actua tion nasal spray,jm pension [place] 1 spray every day by intranas al route. 08/24 completed Not Available Not Available Not Available amoxicill in 875 mg-potass ium clavulana te 125 mg tablet TAKE 1 TABLET BY MOUTH EVERY 12 HOURS FOR 10 DAYS 01/09 completed Not Available Not Available Not Available oxycodone 5 mg tablet 04/18 completed Not Available Not Available Not Available rosuvasta tin 5 mg tablet TAKE 1 TABLET BY MOUTH EVERY DAY 01/09 completed Not Available Not Available Not Available bupropion HCl XL 150 mg 24 hr tablet, extended release TAKE 1 TABLET BY MOUTH EVERY DAY 2024 active Not Available Not Available Not Avai lable hydrocodo ne 7.5 mg-acetam inophen 325 mg/15 mL oral solution 08/24 completed Not Available Not Available Not Available pregabali n 75 mg capsule TAKE 1 CAPSULE BY MOUTH AT BEDTIME FOR 4 DAYS. INCREASE TO 2 TIMES DAILY 01/09 completed Not Available Not Available Not Available pregabali n 150 mg capsule Take 1 capsule twice a day by oral route as needed for 30 days. 2024 active Not Available Not Available Not Avai lable chlorhexi dine gluconate 0.12 % mouthwash SWISH AND SPIT 15 ML TWICE DAILY FOR 2 WEEKS 06/08 completed Not Available Not Available Not Available losartan 100 mg-hydroc hlorothia zide 12.5 mg tablet Take 1 tablet every day by oral route for 90 days. 2024 active Not Available Not Available Not Avai lable Multi Vitamin 04/08 completed Not Available Not Available Not Available Virtussin AC 10 mg-100 mg/5 mL oral liquid 02/15 completed Not Available Not Available Not Available potassium chloride ER 20 mEq tablet,ex tended release TAKE 1 TABLET BY MOUTH EVERY DAY 06/08 completed pt to jhold Not Available Not Available Not Available Ozempic 0.25 mg or 0.5 mg (2 mg/1.5 mL) subcutane ous pen injector INJECT 0.5MG UNDER THE SKIN EVERY WEEK 06/11 completed Not Available Not Available Not Available COVID-19 test specimen collectio n TEST DIRECTED TODAY 03/10 completed Not Available Not Available Not Available Ozempic 0.25 mg or 0.5 mg (2 mg/3 mL) subcutane ous pen injector Inject by subcutan eous route for 28 days. 2023 active Not Available Not Available Not Avai lable Vitals Date Recorded Body height Body mass index (BMI) Body weight Respiratory rate Body temperature Oxygen saturation Oxygen saturation in Arterial blood by Pulse oximetry Systolic blood pressure Diastolic blood pressure Provider Name and Address Organization Details Last Updated DateTime 3 175.26 cm 29.8 kg/m2 34879.6 6 g 16 /min 98 [degF] 97 % 97 % 132 mm[Hg] 82 mm[Hg] NI Lopes [place] - [facility] 3 14:09:34 Date Recorded Body height Body mass index (BMI) Body weight Heart rate Respiratory rate Body temperature Oxygen saturation Oxygen saturation in Arterial blood by Pulse oximetry Systolic blood pressure Diastolic blood pressure Provider Name and Address Organization Details Last Updated DateTime 4 175.26 cm 32.5 kg/m2 38502.3 2 g 74 /min 14 /min 97.7 [degF] 96 % 96 % 137 mm[Hg] 86 mm[Hg] Ivana Rowe MA [facility] 4 12:15:17 Date Recorded Body height Body mass index (BMI) Body weight Respiratory rate Body temperature Heart rate Systolic blood pressure Diastolic blood pressure Provider Name and Address Organization Details Last Updated DateTime 4 175.26 cm 32.5 kg/m2 86212.3 2 g 16 /min 97.1 [degF] 90 /min 130 mm[Hg] 82 mm[Hg] NI Lopes [facility] 4 12:06:13 Date Recorded Body height Body mass index (BMI) Body weight Heart rate Respiratory rate Body temperature Oxygen saturation Oxygen saturation in Arterial blood by Pulse oximetry Systolic blood pressure Diastolic blood pressure Provider Name and Address Organization Details Last Updated DateTime 4 175.26 cm 31.9 kg/m2 29650.8 7 g 78 /min 16 /min 98.1 [degF] 98 % 98 % 141 mm[Hg] 87 mm[Hg] Amalia Gonzales MA [facility] 4 10:59:07 Date Recorded Body height Body mass index (BMI) Body weight Oxygen saturation Oxygen saturation in Arterial blood by Pulse oximetry Heart rate Respiratory rate Body temperature Systolic blood pressure Diastolic blood pressure Provider Name and Address Organization Details Last Updated DateTime 5 175.26 cm 32.4 kg/m2 84173.0 9 g 97 % 97 % 81 /min 16 /min 97.2 [degF] 131 mm[Hg] 80 mm[Hg] Ivana Rowe MA [facility] 5 09:15:43 Social History Question Answer Notes LastModified by Organizat ion Details LastModified Time Tobacco Smoking Status Former Smoker Quit - 11/20 NI Moncada, [facility] 10/07/2016 14:06:35 Do You Have An Advance Directive? No Information not available 06/08/2020 What Is Your Level Of Alcohol Consumption? Occasional [email or web address] Information not available 01/05/2024 Are You Blind Or Do You Have Difficulty Seeing? No Reading Glasses Information not available 09/01/2021 What Is Your Level Of Caffeine Consumption? Moderate 1 Cup Of Coffee Qd, And Soda Information not available 04/18/2023 How Much Tobacco Do You Chew? None Information not available 10/07/2016 In The 14 Days Before Symptom Onset, Have You Had Close Contact With A Laboratory-confi rmed COVID-19 While That Case Was Ill? No Information not available 06/06/2019 In The 14 Days Before Symptom Onset, Have You Had Close Contact With A Person Who Is Under Investigation For COVID-19 While That Person Was Ill? No Information not available 11/30/2020 Have You Been To An Area Known To Be High Risk For COVID-19? No Information not available 06/06/2019 Are You Currently Employed? Yes Information not available 01/09/2023 Are You Deaf Or Do You Have Serious Difficulty Hearing? Yes Rt Ear Information not available 09/01/2021 What Type Of Diet Are You Following? REGULAR Trying Low Calories & Portion Control Information not available 09/01/2021 Which Illicit Or Recreational Drugs Have You Used? Denies Information not available 01/04/2017 Do You Or Have You Ever Used E-cigarettes Or Vape? Never Used Electronic Cigarettes [email or web address] Information not available 04/19/2019 Education 2 Year College Information not available 01/04/2017 What Is The Highest Grade Or Level Of School You Have Completed Or The Highest Degree You Have Received? [id number] Information not available 06/08/2020 What Is Your Occupation? [employer] Information not available 06/09/2023 Are There Any Guns Present In Your Home? No [email or web address] Information not available 04/19/2019 Marital Status Informatio n not available 10/07/2016 Do You Have A Medical Power Of Trial Consultant? No [email or web address] Information not available 06/07/2021 What Was The Date Of Your Most Recent Tobacco Screening? 05/09/2024 Information not available 05/09/2024 Performs Monthly Self-breast Exam? Yes Information not available 10/07/2016 What Is Your Relationship Status? Information not available 11/30/2020 Do You Use Your Seat Belt Or Car Seat Routinely? Yes Information not available 06/08/2020 Seat Belts Used Routinely Yes [email or web address] Information not available 04/19/2019 Smoke Alarm In Home Yes [email or web address] Information not available 04/19/2019 Do You Have Smoke And Carbon Monoxide Detectors In Your Home? Yes Information not available 06/08/2020 At What Age Did You Start Smoking Tobacco? 45 Information not available 01/04/2017 Do You Or Have You Ever Used Smokeless Tobacco? Never Used Smokeless Tobacco Tried Vape Information not available 06/08/2020 How Much Tobacco Do You Smoke? No Information not available 04/18/2023 General Stress Level High [email or web address] Information not available 11/08/2019 Do You Feel Stressed (tense, Restless, Nervous, Or Anxious, Or Unable To Sleep At Night)? [id number] Information not available 05/09/2024 Do You Use Any Illicit Or Recreational Drugs? Yes Marijuana Information not available 09/22/2020 Do You Use Sunscreen Routinely? Yes [email or web address] Information not available 04/19/2019 Has Tobacco Cessation Counseling Been Provided? Yes Information not available 04/18/2023 On What Date Was Tobacco Cessation Counseling Provided? 05/09/2024 Information not available 05/09/2024 Do You Or Have You Ever Used Any Other Forms Of Tobacco Or Nicotine? No Information not available 06/08/2020 Sex: Female Functional Status Question Answer Note LastModified by Organizat ion Details LastModified Time Are you able to care for yourself? Yes Information not available 06/08/2020 What is your exercise level? Occasional walking Information not available 06/09/2023 Mental Status None recorded. Family History Relationship Description Onset Age of this Age Resolved Age Notes LastModified by Organization Details LastModified Time Father Alcohol abuse [email or web address] Not available 2016 13:57:31 Father Asthma [email or web address] Not available 0 10/07/2016 13:57:36 Father Diabetes mellitus [email or web address] Not available 2016 13:57:42 Mother Migraine [email or web address] Not available 10/07/2016 13:57:55 Mother Malignant tumor of lung [email or web address] Not available 2016 13:58:13 Mother Scoliosis deformity of spine [email or web address] Not available 2016 13:59:07 Sister Migraine [email or web address] Not available 10/07/2016 13:57:55 Medical History Condition Response Coronary Artery Disease N Other N Atrial Fibrillation N High Blood Pressure N Kidney or Bladder Problems N Thyroid Problems N GI Problems N Depression N COPD N Blood Clots N Skin Problems N Anemia N Heart Attack (MT) N Anxiety Disorder Y Diabetes N Muscle, Joint, or Bone Problems N Seizures/Epilepsy N Acid Reflux (GERD) N Cancer N Stroke N Asthma N Allergies Y High Cholesterol N Hepatitis N Liver Disease N Headaches N Heart Failure N Osteoporosis N Gynecological History Statement/Question Response If Post Menopausal, Age at Menopause 52 Flow Moderate Date of LMP 05/16/2023 Menses Monthly Y Duration of Flow (days) 4 Age at Menarche 14 LMP Approximate Obstetrics History GPAL:G 4 P 1 0 3 1 Type Value Full Term 1 Induced 2 Spontaneous 1 Living 1 Total 4 Immunizations Vaccine Type Date Status Note Provider Nam e and Address Organization Details Recorded Time SARS-COV-2 (COVID-19) vaccine, UNSPECIFIED 1 completed Not Available [facility] 01/31/2023 22:35:09 SARS-COV-2 (COVID-19) vaccine, UNSPECIFIED 1 completed Not Available [facility] 01/31/2023 22:35:09 influenza, unspecified formulation 2 completed Not Available [facility] 01/31/2023 22:35:09 Influenza, split virus, quadrivalent, preservative 7 completed Not Available [facility] 03/23/2019 02:34:23 Influenza, split virus, quadrivalent, preservative 1 completed NATIVIDAD [place], [place] - [facility] 11/30/2020 16:44:41 Tdap 10/17/202 2 completed Yanet Sigala MD Attn: Accounting,[address], [place], [address], [place] [facility] 12/20/2021 14:08:26 Influenza, split virus, quadrivalent, preservative 3 completed Ivana Rowe [place], [place] [facility] 01/09/2023 18:21:03 Influenza, split virus, trivalent, preservative 4 completed Yanet Sigala MD Attn: Accounting,[address], [place], [address], [place] [facility] 01/05/2024 13:30:39 Pneumococcal conjugate PCV20, polysaccharide [id number] conjugate, adjuvant, PF 5 completed Ivana Rowe [place], [place] [facility] 05/09/2024 09:58:32 Tdap 1 completed Not Available [facility] 01/31/2023 22:35:09 Past Encounters Encounter ID Performer Location Encounter Start Date Encounter Closed Date Diagnosis/Indication Diagnosis SNOMED-CT Code Diagnosis ICD10 Code Diagnosis Note [id number] [facility] [address] [place] [address] 10/07/2016 13:45:41 10/07/2016 14:37:10 Mixed anxiety and depressive disorder 322264594 F41.8 pt to continue Celexa Obesity 078602007 E66.9 healthy diet and exercise discussed with pt [id number] [facility] [address] [place] [address] 12/16/2016 08:34:31 12/20/2016 18:18:11 Mixed anxiety and depressive disorder 271770034 F41.8 pt to continue Celexa Anemia 859854512 D50.9 due to heavy menstrual periodspt to continue iron pill Neck pain 29561899 M54.2 Xray showed DDDwill give Flexeril with mobic Administra tion of influenza vaccine 06864069 Z23 [id number] [facility] [address] [place] [address] 01/04/2017 09:35:48 01/04/2017 16:23:23 Acute bronchitis 63647924 J20.9 Elevated blood-pressure reading without diagnosis of hypertension 944875633 R03.0 possibly due to #1Will reassess [id number] Yanet Sigala MD [facility] (Adult Med) [address] [place] [address] 02/15/2017 10:18:51 02/16/2017 15:22:54 Mixed anxiety and depressive disorder 046420850 F41.8 pt to continue CelexaAdd Trazodone hs Abdominal pain 34451095 R10.9 with h/o fundoplica tion for hiatal hernia -pt thinks hernia is coming backRefer to GI Hiatal her ba with gastroesophageal reflux 793748657 K21.9 with h/o fundoplica tion 10/2013 Amenorrhea 15182257 N91. 2 Acute sinusitis 24613968 J01.90 increase fluid [id number] Yanet Sigala MD [facility] (Adult Med) [address] [place] [address] 05/24/2017 09:09:31 05/26/2017 16:10:30 Mixed anxiety and depressive disorder 219711026 F41.8 pt to continue Celexapt takes 1/2 tab Trazodone hs Hiatal her ba with gastroesophageal reflux 271939099 K21.9 with h/o fundoplica tion 10/2013pt is seeing GI and surgeon to have redo of her fundoplica tion [id number] [facility] [address] [place] [address] 08/24/2017 08:46:14 08/25/2017 14:44:23 Neck pain 91403671 M54.2 Xray showed DDDwill give Flexerilhe at therapy and exercises Mixed anxi ety and depressive disorder 624747479 F41.8 stablept to continue Celexapt stopped Trazodone on her own -she said she does not need it anymore Elevated blood-pressure reading without diagnosis of hypertension 608402247 R03.0 possibly due to #1Will reassess with next visit Anemia 406548900 D50.9 pt to continue iron pill [id number] [facility] [address] [place] [address] 11/30/2017 08:22:20 11/30/2017 09:47:07 Shoulder pain 77798626 M25.512 with neck painpt to go for PT and check Xray Mixed anxi ety and depressive disorder 542121174 F41.8 stablept to continue Celexapt stopped Trazodone on her own -she said she does not need it anymore Anemia 378705916 D50.9 pt to continue iron pill Hyperlipid emia screening 894270130 Z13.220 Neck pain 33499260 M54.2 Xray showed DDDheat therapy and exercises Elevated blood-pressure reading without diagnosis of hypertension 270158882 R03.0 possibly due to painWill reassess with next visit [id number] [facility] [address] [place] [address] 04/26/2018 08:56:10 04/27/2018 09:38:39 Mixed anxiety and depressive disorder 456469265 F41.8 stablept to continue Celexa [id number] [facility] [address] [place] [address] 11/09/2018 09:34:31 11/12/2018 09:19:01 Mixed anxiety and depressive disorder 871204384 F41.8 stablept to continue Celexa Obesity 755430379 E66.9 healthy diet and exercise discussed with pt Low back pain 656762202 M54.5 with muscle spasm Plantar fa sciitis of left foot [id number] 8485380 M72.2 ice / avoid barefoot [id number] MD [facility] ([facility] [address] [place] [address] 04/19/2019 09:07:25 04/22/2019 08:13:18 Mixed anxiety and depressive disorder 547356560 F41.8 stablept to continue Celexa Low back pain [id number] M54.5 with muscle spasm.exer cisesheat therapy [id number] MD [facility] (Adult [facility]) [address] [place] [address] 06/06/2019 08:13:29 06/07/2019 09:54:38 Mixed anxiety and depressive disorder 491868934 F41.8 Increased anxiety due to Covid -19 pandemic.p t to continue CelexaAdd buspar bid [id number] [facility] [address] [place] [address] 07/23/2019 08:43:28 07/24/2019 17:45:34 Mixed anxiety and depressive disorder 576374372 F41.8 improving .pt to continue Celexa/ buspar bid [id number] [facility] [address] [place] [address] 11/08/2019 08:15:11 11/18/2019 10:42:45 Mixed anxiety and depressive disorder 389140764 F41.8 improving .pt to continue Celexa/ buspar bid [id number] [facility] [address] [place] [address] 11/28/2019 08:28:15 11/29/2019 12:48:50 Thoracic back pain [id number] M54.6 with muscle spasm .heat therapy / exercise [id number] [facility] [address] [facility] [address] 12/05/2019 11:13:31 12/13/2019 14:56:54 Elevated blood-pressure reading without diagnosis of hypertension 840467901 R03.0 possibly due to painWill reassess with next visit Swelling / lump finding 519798715 R22.9 there is soft cystic swelling on R/upper back -3x6 cm ill defined margin with normal overlying skin /mildly tender on palpation -? sebaceous cyst vs lipoma .check us of lump [id number] MD [facility] (Adult Med) [address] [place] [address] 06/08/2020 14:16:55 06/09/2020 10:16:21 Mixed anxiety and depressive disorder 522921186 F41.8 improving .pt to continue Celexa/ buspar bid Hyperlipidemia 66220145 E78.5 healthy diet and exercise discussed with pt Renewal of prescription 586614844 Z76.0 [id number] MD [facility] (Adult Med) [address] [place] [address] 09/22/2020 10:22:11 09/28/2020 22:45:02 Mixed anxiety and depressive disorder 994400374 F41.8 improving .pt to continue Celexa/ buspar bid Hyperlipidemia 09081684 E78.5 healthy diet and exercise discussed with pt Hypertensive disorder 38 712949 I10 pt to start losartan hct [id number] [facility] [address] [place] [address] 11/30/2020 10:20:31 12/01/2020 10:48:01 Administration of influenza vaccine 11337831 Z23 Hypertensive disorder 38 866365 I10 improving- pt to continue losartan hct Mixed anxi ety and depressive disorder 386862088 F41.8 improving .pt to continue Celexa/ buspar bid Obesity 174721010 E66.9 healthy diet and exercise discussed with pt Hyperlipidemia 06906538 E78.5 healthy diet and exercise discussed with pt [id number] [facility] [address] [place] [address] 03/10/2021 11:37:51 03/11/2021 09:45:37 Hypertensive disorder 06853017 I10 not well controlled -pt to increase losartan hct Hyperlipidemia 80218583 E78.5 healthy diet and exercise discussed with pt-pt is willing to try statin Mixed anxi ety and depressive disorder 718928664 F41.8 improving .pt to continue Celexa/ buspar bid Pain of ri ght elbow joint 7996106454 1953914 M25.521 -possibly due to lateral epicondyli tis - refer to orthoxray -negAdd mobic prn with food [id number] MD [facility] (Adult Med) [address] [place] [address] 04/08/2021 08:42:27 04/09/2021 06:39:28 Hypertensive disorder 60727122 I10 not well controlled /home sbp >140-pt to coninue losartan hct 100/12.5 mg daily-amlo dipine added - re-evaluat e in 3 wks in the office Hyperlipidemia 03562920 E78.5 healthy diet and exercise discussed with pt-pt is willing to try statin Mixed anxi ety and depressive disorder 003483782 F41.8 improving .pt to continue Celexa/ buspar bid [id number] MD [facility] (Adult Med) [address] [place] [address] 05/07/2021 09:29:42 05/10/2021 09:12:03 Hypertensive disorder 99811288 I10 improving- pt to coninue losartan hct 100/12.5 mg daily/amlo dipine Mixed anxi ety and depressive disorder 774615999 F41.8 improving .pt to continue Celexa/ buspar bid Low back pain 775228517 M54.50 - pt had mri and seen by pain mx several yrs ago Hyperlipidemia 51036120 E78.5 healthy diet and exercise discussed with pt-pt to continue statin [id number] Ghulam Parnell MD [facility] [address] [place] [address] 06/07/2021 14:45:28 06/09/2021 15:27:23 Strain of muscle and/or tendon of elbow region 418307284 S56.911D Lateral ep icondylitis of right humerus 2763272940 17610 M77.11 [id number] MD [facility] (Adult Med) [address] [place] [address] 09/01/2021 09:26:07 09/02/2021 08:09:48 Hypertensive disorder 75575875 I10 improving- pt to continue losartan hct 100/12.5 mg daily/amlo dipine Hyperlipidemia 62269017 E78.5 healthy diet and exercise discussed with pt-pt to continue statin Mixed anxi ety and depressive disorder 315504085 F41.8 improving .pt to continue Celexa/ buspar bid Degenerati on of lumbar intervertebral disc 38135409 M51.36 MRI 07/25- sees pain mx -receives injection Allergic rhinitis 060406 04 J30.9 pt to continue cetirizine Obesity 045579044 E66.9 healthy diet and exercise discussed with pt-GLP1 injection- pt wants to try ozempic [id number] [facility] [address] [place] [address] 12/20/2021 09:36:36 12/21/2021 13:37:13 Hypertensive disorder 03715030 I10 improving- pt to continue losartan hct 100/12.5 mg daily/amlo dipine Hyperlipidemia 51955837 E78.5 healthy diet and exercise discussed with pt-pt to continue statin Mixed anxi ety and depressive disorder 736686514 F41.8 improving .pt to continue Celexa/ buspar bid Degenerati on of lumbar intervertebral disc 07396461 M51.36 MRI 07/25- sees pain mx -receives injection Obesity 544720002 E66.9 healthy diet and exercise discussed with ptimprovin g -GLP1 injection- pt is on ozempic Renewal of prescription 815167181 Z76.0 Administra tion of diphtheria, pertussis, and tetanus vaccine 039483064 Z23 Lipoma of back 855501066 D17.1 -reassured [id number] [facility] [address] [place] [address] 06/24/2022 09:44:11 06/28/2022 16:18:06 Hypertensive disorder 00748806 I10 improving- pt to continue losartan hct 100/12.5 mg daily/amlo dipine Mixed anxi ety and depressive disorder 754728476 F41.8 -fairly stablept to continue Celexa/ buspar bid- add wellbutrin Hyperlipidemia 72150556 E78.5 healthy diet and exercise discussed with pt-pt to continue statin Degenerati on of lumbar intervertebral disc 10469839 M51.36 MRI 07/25- sees pain mx -receives injection Screening for malignant neoplasm of colon 200988675 Z12.11 Overweight 120652051 E66 .3 [id number] MD [facility] (Adult Med) [address] [place] [address] 01/09/2023 14:28:36 01/11/2023 09:45:10 Administration of influenza vaccine 52343385 Z23 Degenerati on of lumbar intervertebral disc 97958887 M51.36 MRI 07/25- sees pain mx -receives injection Hypertensive disorder 38 292473 I10 -not well controlled due to noncomplia nt with med - pt stopped taking meds on her own-pt to restart losartan hct 100/12.5 mg dailypt is off of amlodipine Hyperlipidemia 13206119 E78.5 healthy diet and exercise discussed with pt-pt is noncomplia nt with statin -stopped taking statin on her own Mixed anxi ety and depressive disorder 504924195 F41.8 -fairly stablept to continue Celexapt stopped taking buspar bid- added wellbutrin Overweight 273608006 E66 .3 Pre-surger y evaluation 901081790 Z01.818 -pt is going for labs ordered by pain mx-check ekg and cxr Noncomplia nce with medication regimen 791853987 Z91.148 -pt declined to take statin or bp meds -pt understand s the potential risks of uncontroll ed bp and cholestero l [id number] [facility] [address] [place] [address] 01/13/2023 14:01:05 01/18/2023 16:13:16 Hyperlipidemia 69363921 E78.5 healthy diet and exercise discussed with pt-pt is noncomplia nt with statin -stopped taking statin on her own Hypertensive disorder 38 786449 I10 -pt restarted losartan hct 100/12.5 mg dailypt is off of amlodipine Mixed anxi ety and depressive disorder 712615494 F41.8 -fairly stablept to continue Celexapt stopped taking buspar bid- added wellbutrin Degenerati on of lumbar intervertebral disc 37957934 M51.36 MRI 07/25- sees pain mx -receives injectionp t is going for back sx on 01/30/23- pt is going for pre-op ekg today-meds optimized for sx [id number] MD [facility] (Adult Med) [address] [place] [address] 04/18/2023 11:49:24 04/25/2023 16:29:45 Hypertensive disorder 43535645 I10 -pt restarted losartan hct 100/12.5 mg dailypt is off of amlodipine - add low dose aldactone Hyperlipidemia 88441767 E78.5 healthy diet and exercise discussed with pt-pt is noncomplia nt with statin -stopped taking statin on her own Mixed anxi ety and depressive disorder 538835892 F41.8 -fairly stablept to continue Celexapt stopped taking buspar bid- added wellbutrin Degenerati on of lumbar intervertebral disc 95426048 M51.36 MRI 07/25- sees pain mx -receives injectionp t had back sx on 01/30/23 Screening for malignant neoplasm of colon 420183926 Z12.11 Overweight 041201287 E66 .3 Edema of l ower extremity 448036737 R60.0 - pt to d/c celebrex-s tart pt on aldactone / pt to hold K pill [id number] Yanet Sigala MD [facility] (Adult Med) [address] [place] [address] 06/09/2023 11:40:00 06/14/2023 12:22:18 Hypertensive disorder 44707710 I10 -pt restarted losartan hct 100/12.5 mg dailypt is off of amlodipine - added low dose aldactone Mixed anxi ety and depressive disorder 936148848 F41.8 -fairly stablept to continue Celexapt stopped taking buspar bid- added wellbutrin Hyperlipidemia 57577130 E78.5 healthy diet and exercise discussed with pt-pt is noncomplia nt with statin -stopped taking statin on her own Obesity 666336456 E66.9 healthy diet and exercise discussed with ptimprovin g -GLP1i Edema of l ower extremity 866955905 R60.0 - pt to d/c celebrex-i mproving on aldactone / pt to hold K pill [id number] [facility] [address] [place] [address] 01/05/2024 10:48:36 01/08/2024 10:02:32 Hypertensive disorder 83894627 I10 -pt restarted losartan hct 100/12.5 mg dailypt is off of amlodipine - added low dose aldactone Mixed anxi ety and depressive disorder 176313264 F41.8 -fairly stablept to continue Celexapt stopped taking buspar bid- added wellbutrin Screening for malignant neoplasm of colon 862485204 Z12.11 -denied f/h of colon ca Allergic asthma 99460537 6 J45.909 - pt is on zyrtec Administra tion of influenza vaccine 14700710 Z23 Pain of le ft hip joint 7638159149 15507 M25.552 with possible SIJ arthritis- pt takes tylenol for pain [id number] STANLEY CONNOLLY-[facility] (Adult Med) [address] [place] [address] 05/09/2024 08:48:02 06/03/2024 13:14:36 Low back pain 610588893 M54.50 -Patient has history of chronic lower back pain.-Lumb ar MRI (09/02/22): moderate bilateral neural foraminal stenosis, mild to moderate disc bulging.-P scott was previously seen by pain management .-Patient reports her pain is controlled with lyrica therapy.-U DS completed, controlled substance agreement signed.-POWER SWITCHBOARD OPERATOR discussed risks, potential side effects of lyrica use. POWER SWITCHBOARD OPERATOR advised patient to avoid marijuana, drug, and alcohol use with this medication .-F/u in 3 months Essential hypertension 91412474 I10 -Stable-BP today in clinic: 131/80mmHg (Goal <130/80)-C ontinue current therapy: losartan 100mg-hydr ochlorothi azide 12.5mg daily-Gregorio mondragon renal function-R ecommended DASH diet-Discu ssed importance of regular exercise and/or physical activity inthe control of blood pressure.- Discussed low sodium diet w/ <2 g daily, avoidance of caffeine, appropriat e sleep hygiene and quality with >6 hours of uninterrup cookie sleep.-Pat ient to call the clinic with BP <110/70mmH g or >140/90mmH g Hyperlipidemia 44800967 E78.5 -No medication therapy currently- Recheck lipid panel-Gregorio mondragon LFTs-Jamal nt educated on the importance of diet, exercise and medication in the management of this condition. Screening for malignant neoplasm of colon 690944129 Z12.11 -Patient agreeable to colofit Administra tion of pneumococcal vaccine 24773331 Z23 -Patient agreeable to pneumonia vaccine.-N P discussed potential side effects and benefits of vaccine. Screening for malignant neoplasm of cervix 386441094 Z12.4 Adult heal th examination 410521427 Z00.01 The patient was counseled regarding the appropriat e use ofalcohol, screening procedures and recommende d schedule for colonoscop y, cholestero l, thyroid and diabetes screening, prevention of dental and periodonta l disease, diet, regular sustained exercise for at least 30 minutes 3-4 times per week, regular use of seat belts.Deon mmend dilated eye exam and glaucoma screening every 2 years or as indicated by ophthalmol ogy Pain of le ft hip joint 1366520258 04860 M25.552 -Patient reports her left hip started hurting after her back surgery apr of last year-Jamal nt reports pain with abduction, extension, and pain with standing up and bearing weight. Patient feels a popping sensation when she uses this hip.-Jamal nt to work on obtaining insurance to see ortho-Orde ring x rays of her hip.-Patie nt agreeable to trial of naproxen BID PRN, monitor renal function-P atient agreeable to trial of tylenol arthritis PRN, monitor LFTs Diabetes m ellitus screening 376158075 Z13.1 Screening mammography 24 424245 Z12.31 Edema of l ower extremity 718674203 R60.0 -Patient has had chronic LE edema. Patient reports this has never been worked up. Patient is already on 2 diuretics. Patient also reports increased dyspnea-Ch danuta BNP-Cardio logist referral placed-ER precaution s Asthma 526670669 J45.90 9 -Patient reports she has been using albuterol at least 3x per week, sometimes more frequently .-Patient reports her asthma can be worse seasonally .-Patient agreeable to trial of advair BID to help control symptoms.- Continue albuterol PRN-F/u in 3 months Mixed anxi ety and depressive disorder 006432586 F41.8 -Denies active suicidal or homicidal thoughts. Denies history of suicidal or homicidal thoughts.- Patient reports her symptoms are controlled on current therapy.-P HQ9 score: 4-Declined counseling referral at this time.-Linda ent was educated on her prescribed medication s, rationale for medication s, dosing indication s, adverse reactions, black box warning, dosing indication s, SE (e.g., decreased libido, weight gain, gynecomast ia, and galactorrh ea) and the risks and benefits.- Patient instructed to go to ER or call 911 or 988 for crisis (e.g., suicidal behaviors, suicidal ideations, intent or plan emerge). Additional ly, patient has suicide hotline #.-Eligio vera current therapy-Ad vised patient to call clinic with questions Renewal of prescription 782412218 Z76.0 Health Concerns Section Related Observation LastModified by Organization Detai ls LastModified Time None Recorded Concern Status LastModified by Organization Details LastModified Time None Recorded Advance Directives Directive N: Payers Encounter Date Sequence Insurance Name Policy Number Policy Epstein Covered Member ID Epstein Member ID Guarantor Name 01/13/2023 1 [place] [facility] [id number] [facility] 01/13/2023 1 [facility] [id number] [facility] [id number] [facility] 04/18/2023 1 [place] [facility] [id number] [facility] 04/18/2023 1 [facility] [id number] [facility] [id number] [facility] 06/09/2023 1 [place] [facility] [id number] [facility] 06/09/2023 1 [facility] [id number] [place] [address] [id number] [facility] 01/05/2024 1 *SELF PAY* Vi nicole Pugh 01/05/2024 1 [facility] (MEDICAID HMO) [id number] [facility] [id number] [facility] 05/09/2024 1 *SELF PAY* [facility] Notes Date Note Type Note Provider Name and Address Organization Details Recorded Time 01/13/2023 text/html Anxiety/Depressi onRepo rted bypatient.Quality:incr eased anxiety(due to back sx -meds help) Severity:denies suicidal ideations Duration:started: (when she was in 20's) Context:major life stressors(child with autism / -unemployed); lives with /child- lost his job Modifying Factors:medications as directed Associated Symptoms:denies homicidal ideations;anxiety;depr essionBack PainReported bypatient.Location:eveline n radiating to the buttocks(both sides); low back pain Onset/Timing:recurrent episode Context:prior back problems Aggravating Factors:movement/posit ioning Associated Symptoms:no weak limbs; no numbness of the legs/feet;tinglingNote s:pt is seeing pain mx /on pain pills -pt is going for back sx on 01/30Hypertension F/UReported bypatient.Associated Symptoms:no dizziness; no chest pain; no shortness of breath; no palpitations; no edema Lifestyle:regular exercise; limiting/avoiding salt Medications:taking medications as directed; no side effects from medication pt missed f/u / pt is here for pre-op back sx on 01/30 and f/u Yanet Sigala MD Attn: Accounting[address] [place], [address], [facility] 01/13/2023 16:07:45 04/18/2023 text/html Anxiety/Depressi onRepo rted bypatient.Quality:symp toms improved Severity:denies suicidal ideations Duration:started: (when she was in 20's) Context:major life stressors(child with autism / -unemployed); lives with /child- lost his job Modifying Factors:medications as directed Associated Symptoms:denies homicidal ideations;anxiety(bett er);depression(better) Back PainReported bypatient.Location:low back pain Severity:improving Onset/Timing:recurrent episode Context:prior back problems Alleviating Factors:back sx on 01/26 Aggravating Factors:movement/posit ioning Associated Symptoms:no weak limbs; no numbness of the legs/feet;tinglingNote s:pt is seeing pain mx /on pain pills -pt had back sx on 01/30/23EdemaReported bypatient.Quality:legs swell equally Severity:moderate Onset/Timing:started 2 weeks ago Context:no prior history of edema Associated Symptoms:no shortness of breath;swelling in lower legs onlyHypertension F/UReported bypatient.Associated Symptoms:no dizziness; no chest pain; no shortness of breath; no palpitations; no edema Lifestyle:regular exercise; limiting/avoiding salt Medications:taking medications as directed; no side effects from medication pt had back sx for DDD with stenosis on 01/30 and f/u Yanet Sigala MD Attn: Accounting[address] [place], [address], [facility] 04/19/2023 15:06:42 06/09/2023 text/html Anxiety/Depressi onRepo rted bypatient.Quality:symp toms improved Severity:denies suicidal ideations Duration:started: (when she was in 20's) Context:major life stressors(child with autism / -unemployed); lives with /child- lost his job Modifying Factors:medications as directed Associated Symptoms:denies homicidal ideations;anxiety(bett er);depression(better) Back PainReported bypatient.Location:low back pain Severity:improving Onset/Timing:recurrent episode Context:prior back problems Alleviating Factors:back sx on 01/26 Aggravating Factors:movement/posit ioning Associated Symptoms:no weak limbs; no numbness of the legs/feet;tinglingNote s:pt is seeing pain mx /on pain pills -pt had back sx on 01/30/23EdemaReported bypatient.Quality:legs swell equally (improving) Context:no prior history of edema Associated Symptoms:no shortness of breath;swelling in lower legs onlyHypertension F/UReported bypatient.Associated Symptoms:no dizziness; no chest pain; no shortness of breath; no palpitations; no edema Lifestyle:regular exercise; limiting/avoiding salt Medications:taking medications as directed; no side effects from medication pt had back sx for DDD with stenosis on 01/30 and f/u Yanet Sigala MD Attn: Accounting[address] [place], [address], [facility] 06/12/2023 14:17:09 01/05/2024 text/html Anxiety/Depressi onRepo rted bypatient.Quality:symp toms improved Severity:denies suicidal ideations Duration:started: (when she was in 20's) Context:major life stressors(child with autism / -unemployed); lives with /child- lost his job Modifying Factors:medications as directed Associated Symptoms:denies homicidal ideations;anxiety(bett er);depression(better) Hip(s)Reported bypatient.Location:lef t; buttocks (upper part) Timing:gradual Aggravating Factors:weightbearingH ypertension F/UReported bypatient.Associated Symptoms:no dizziness; no chest pain; no shortness of breath; no palpitations; no edema Lifestyle:regular exercise; limiting/avoiding salt Medications:taking medications as directed; no side effects from medication pt had back sx for DDD with stenosis on 01/30 and f/u Yanet Sigala MD Attn: Accounting, [place], [address], [facility] 01/05/2024 13:34:06 05/09/2024 text/html Patient presents to the clinic to establish care. Patient was previously established with Dr. Lord for primary care.Other providers:Neurosurgeon Pain Management-[facility]-Patient has not followed up with these providers. -Medical Hx/Surgical Hx: lower back pain, hiatal hernia, hernia repair 2x, GERD, hypertension, hyperlipidemia, anxiety, depression, anemia, knee surgery, lumbar spinal fusion, 3 pregnancies-1 miscarriage-1 -1 , and allergies -Family hx:Mother: living-lung cancerFather: -DMIIMaternal Grandmother: -MSMaternal Grandfather: living-healthyPaternal Grandmother: -unknownPatern al Grandfather: -unknown -Tobacco/Drug/Alcohol Use:Patient reports she started using tobacco at age [age] and she quit in 2022.Patient reports occasionally using marijuana. She uses about once per month.Patient reports having alcohol at holidays, but otherwise no alcohol use.Chicken pox: Patient reports she had chicken pox as a child. 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
--- OUTSIDE RECORDS SUMMARY | 2024-06-24 18:22 | XMS_ITS | Clinical Summary ---
Author Organization [facility] Address [address] [place] [phone] Phone Care Team Providers Care Dye Tub Operator Name Role Phone JI SIGALAPARDEEP Primary Care Provider [phone] Reason for Visit and Chief Complaint RX ISSUE/REFILL Problems Includes: Problems addressed during this encounter and other active Problems All Visits Onset Date Resolved Date Provider Condition S tatus Depression Unknown JONELLE MOSES DATA PROCESSING CONTROL CLERK-FPA, GROUP FITNESS INSTRUCTOR-BC Active Last Documented On 2 9:23AM ; [facility] Anxiety Disorder Nos Unknown JONELLE PATTERSONLP DATA PROCESSING CONTROL CLERK-FPA, GROUP FITNESS INSTRUCTOR-BC Active Last Documented On 2 9:23AM ; [facility] Hyperlipidemia Unknown JONELLE MOSES DATA PROCESSING CONTROL CLERK-F PA, GROUP FITNESS INSTRUCTOR-BC Active Last Documented On 2 9:23AM ; [facility] Essential Hypertension Unknown JONELLE Lopez KUL P DATA PROCESSING CONTROL CLERK-FPA, GROUP FITNESS INSTRUCTOR-BC Active Last Documented On 2 9:22AM ; [facility] Plan of Treatment 5 day supply from surgeon - Last Documented On 02/21/2023 9:00AM ; [facility] Assessments Includes: Assessments from this encounter No Assessments Recorded Medical Equipment - Implanted Devices Includes: Current Devices No Medical Equipment Recorded Medications Includes: Medications discussed during this encounter and other current Medications Discontinued / Stopped on this date JONELLE MOSES DATA PROCESSING CONTROL CLERK-FPA, GROUP FITNESS INSTRUCTOR-BC on 01/02/2023 HYDROcodone-Acetaminophen 5- 325 MG Oral Tablet Provider: JONELLE MOSES DATA PROCESSING CONTROL CLERK-FPA, GROUP FITNESS INSTRUCTOR-BC 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, lumbar region Last Documented On 3 9:00AM By JONELLE CHINO ; [facility] Current Medications (continue as prescribed) Pregabalin 150 MG Oral Capsule 05/15/2023 Provider: MATTI WELCH Diagnosis: Radiculopathy, l umbar region TAKE 1 CAPSULE BY MOUTH TWICE DAILY Last Documented On 4 1:13PM By JONELLE CHINO ; [facility] HYDROcodone-Acetaminophen 5- 325 MG Oral Tablet 02/21/2023 Provider: MATTI PRESCOTT 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, lumbar region One tablet twice a day as ne eded for severe pain Last Documented On 3 9:13AM By JONELLE CHINO ; [facility] Methocarbamol 500 MG Oral Tablet 02/02/2023 Provider: MATTI PRESCOTT Diagnosis: Dorsalgia, unspe cified TAKE 1 TABLET BY MOUTH THREE TIMES DAILY NEEDED Last Documented On 3 11:05AM By JONELLE CHINO ; [facility] buPROPion HCl ER (XL) 150 MG Oral Tablet Extended Release 24 Hour 10/18/2022 Provider: Diagnosis: once a day Last Documented On 3 3:22PM By JONELLE CHINO ; [facility] Citalopram Hydrobromide 40 MG Oral Tablet 06/11/2021 Provider: DELTA SIGALA Diagnosis: Last Documented On 2 9:58AM By JONELLE CHINO ; [facility] Albuterol Sulfate HFA 108 (9 0 Base) MCG/ACT Inhalation Aerosol Solution 06/11/2021 Provider: DELTA RAMSEY Diagnosis: Last Documented On 2 9:58AM By JONELLE CHINO ; [facility] Medications Administered Includes: Administered Medications from this encounter No Administered Medications Recorded Results Includes: Results discussed during this encounter No Results Recorded For Specified Dates History of Present Illness Includes: History of Present Illness from this encounter No History of Present Illness Recorded Social History Description Last Updated Tobacco non-user 06/11/2021 Last Documented On 3 4:28PM ; [facility] Difficulty walking 06/11/2021 Last Documented On 3 4:28PM ; [facility] Smoking Status Unknown Procedures and Surgical History Surgical History Last Updated No Pacemaker 06/11/2021 Last Documented On 3 4:28PM ; [facility] Surgical / procedural history Over 20 yr s ago 06/11/2021 Last Documented On 3 4:28PM ; [facility] Medical History Includes: Medical History addressed during this encounter Description Last Updated Surgical / procedural history L5-S1 Lumb ar Fusion 01/30/[address] Easton 02/03/2023 Last Documented On 3 4:28PM ; [facility] Denies a fear of falling. 07/08/2021 Last Documented On 3 4:28PM ; [facility] Has had no fall in the last 12 months. 0 07/08/2021 Last Documented On 3 4:28PM ; [facility] Currently wearing eyeglasses 06/11/2021 Last Documented On 3 4:28PM ; [facility] No Pain Pump 06/11/2021 Last Documented On 3 4:28PM ; [facility] No Spinal cord stimulator 06/11/2021 Last Documented On 3 4:28PM ; [facility] Physical therapy 06/11/2021 Last Documented On 3 4:28PM ; [facility] Please list all illnesses/co nditions you have been diagnosed with: Anxiety/panic attacks, high blood pressure, high colest 06/11/2021 Last Documented On 3 4:28PM ; [facility] Please list all surgeries: L eft Knee surgery for torn miniscus in 1998. hiatal hernia repair in October 2013 and again in June 2017 06/11/2021 Last Documented On 3 4:28PM ; [facility] Family History Includes: Family History addressed during this encounter Description Last Updated Family history of Arthritis 06/11/2021 Last Documented On 3 4:28PM ; [facility] Paternal history of reported family hist ory of seizures 06/11/2021 Last Documented On 3 4:28PM ; [facility] Review of Systems Includes: Review of Systems [...] Active Last Documented On 3 3:05PM ; [facility] Meloxicam Allergy 06/11/2021 Active Last Documented On 3 3:05PM ; [facility] Lamotrigine Allergy 06/11/2021 Active Last Documented On 3 3:05PM ; [facility] LaMICtal Allergy Skin Rashes / Eruption of skin 2 Active Last Documented On 3 3:05PM ; [facility] Iodine Allergy Skin Rashes / Eruption of skin 2 Active Last Documented On 3 3:05PM ; [facility] Encounters Encounter Provider Location Date Check-In Time Check-Out Time Diagnosis RX ISSUE/REFILL JONELLE MOSES DATA PROCESSING CONTROL CLERK-FPA, GROUP FITNESS INSTRUCTOR-BC 02/20/2023 4:28PM 11:59PM Insurance Includes: Active Insurance Policies Plan Name Member ID Group # Subscriber Relationship Effect jad Dates 1 - [facility] [id number] JOHNATHON FLORES Se lf Clinical Notes Includes: Clinical Notes from this encounter * Progress note Date Encounter Last Documented by 02/20/2023 RX ISSUE/REFILL Last documented on 02/21/2023; 9:00 AM, JONELLE MOSES DATA PROCESSING CONTROL CLERK-FPA, GROUP FITNESS INSTRUCTOR-BC; [facility] Active Problems & Conditions - Anxiety Disorder [...] Return call: ~Last Drug Screen:10/18/2022 ~Date/Initials: 02/20/2023 [employer]. Current Medication - Albuterol Sulfate HFA 108 [...]
--- OUTSIDE RECORDS SUMMARY | 2024-06-24 18:22 | XMS_ITS ---
Care Plan - [facility] Created on: June 24, 2024 JOHNATHON FLORES : 1970 Sex: Female Author Organization [facility] Address [address] [place] [address] Phone Care Team Providers Care Leather Tanner Name Role Phone DELTA SIGALA Primary Care Provider [phone]
--- OUTSIDE RECORDS SUMMARY | 2024-06-24 18:22 | XMS_ITS | Clinical Summary ---
Author Organization [facility] Address [address] [facility] [address] [place] [address] Phone Care Team Providers Care Willower Name Role Phone Ellen Chavarria PRODUCT SUPPORT MANAGER, REGISTRATION REP Primary Care Provider Allergies Active Allergy Reactions Criticality Noted Date Comments Iodine Anaphylaxis,Rash Lamotrigine Rash Medications VENTOLIN HFA 108 (90 Base) MCG/ACT Aerosol Solution 7 Active citalopram (CELEXA) 40 MG Tablet 8 Active traZODone (DESYREL) 50 MG Tablet 8 Active HYDROcodone-prasanna taminophen (NORCO) 5-325 MG Tablet Take 1-2 Tabs by mouth every 4 hours as needed for Pain. 20 Tab 8 Active Additional Information Patient not taking.Reported on 09/18/2017 lidocaine viscous (XYLOCAINE) 2 % Solution PATIENT TO MIX 10ML VISCOUS LIDOCAINE WITH 20ML MYLANTA AND DRINK EVERY 4 HOURS NEEDED FOR STOMACH PAIN 100 mL 8 Active Additional Information Patient not taking.Reported on 09/18/2017 raNITIdine (ZANTAC) 150 MG Tablet TAKE 2 TABLETS BY MOUTH EVERY NIGHT 180 Tab 8 Active Additional Information Patient not taking.Reported on 09/18/2017 Encounters Date Type Department Care Team Description 05/09/2024 Transcribe Orders [facility] Central Scheduling 1 [facility] [place] [address] Ellen Chavarria, PRODUCT SUPPORT MANAGER, REGISTRATION REP Left hip pain (Primary Dx); Visit for screening mammogram from Last 3 Months Family History Medical History Relation Name Comments Diabetes Father Cancer Maternal Aunt colon Lung Cancer Mother Relation Name Status Comments Father Maternal Aunt Mother Alive Social History Tobacco Use Types Packs/Day Years Used Date Smoking Tobacco: Former Cigarettes 0.3 0.4 0 10/15/2012 - 03/17/2013 Smokeless Tobacco: Never Alcohol Use Standard Drinks/Week Comments Yes 0 (1 standard drink = 0.6 oz pur e alcohol) rarely Comments No Sex and Gender Information Value Date Recorded Sex Assigned at Not on file Legal Sex 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 Gender Identity Not on file Sexual Orientation Not on file Last Filed Vital Signs Vital Sign Reading Time Taken Comments Blood Pressure 167/86 05/05/2017 12:00 PM CHEMICAL ENGINEERING PROFESSOR Pulse 68 05/05/2017 12:15 PM CHEMICAL ENGINEERING PROFESSOR Temperature 37.7 C (99.8 F) 05/05/2017 11:18 AM CHEMICAL ENGINEERING PROFESSOR Respiratory Rate 20 05/05/2017 11:18 AM CHEMICAL ENGINEERING PROFESSOR Oxygen Saturation 99% 05/05/2017 12:15 PM CHEMICAL ENGINEERING PROFESSOR Inhaled Oxygen Concentration - - Weight 89.4 kg (197 lb) 09/18/2017 9:00 AM CDT Height 175.3 cm (5' 9 ) 09/18/2017 9:00 AM CDT Body Mass Index 29.09 09/18/2017 9:00 AM CDT Plan of Treatment Health Maintenance Due Date Last Done Comments Hepatitis C Virus (HCV) Screening 1970 Mammogram 1970 Hepatitis B Immunization (1 of 3 - 19+ 3-dose series) 09/26/1991 Pap Smear 1993 Cervical Cancer Screening (CCS) 2002 HPV/Cotest 2002 Colonoscopy 2017 Colorectal Cancer Screening 2017 Cologuard 2022 Immunochemical Fecal Occult Blood 2022 Pneumococcal Immunization (5 0+ years) (1 of 1 - PCV) 2022 Zoster Immunization (1 of 2) 2022 Influenza Immunization (#1) 2023 11/05, 12/16/2016 SARS-COV-2 Immunization ( season) 2023 08/10/2020, 07/20/2020 Respiratory Syncytial Virus (RSV) Immunization (Adult) (1 - 1-dose 75+ series) 09/26/2047 DTaP/Tdap/Td Immunization Discontinued 03/06/2010 TdaP Immunization Completed 03/06/2010 Meningococcal Immunization (ACWY) Aged Out No longer eligible based on patient's age to complete this topic Rotavirus Immunization Aged Out No lo nger eligible based on patient's age to complete this topic Insurance MEDICAID [place] Care Teams Willower Relationship Specialty Start Date End Date Ellen Chavarria, PRODUCT SUPPORT MANAGER, REGISTRATION REP [address] [facility], [address] [place] [address] PCP - General Advanced Practice Nurse 05/09/24
--- OUTSIDE RECORDS SUMMARY | 2024-06-24 18:22 | XMS_ITS | Clinical Summary ---
Author Organization [facility] Address [address] [place] [phone] Phone Care Team Providers Care Mri Ct Tech Name Role Phone JI SIGALAPARDEEP Primary Care Provider [phone] Reason for Visit and Chief Complaint RX ISSUE/REFILL Problems Includes: Problems addressed during this encounter and other active Problems All Visits Onset Date Resolved Date Provider Condition S tatus Depression Unknown JONELLE MOSES PADDING GLUER-FPA, DE ICER INSTALLER-BC Active Last Documented On 2 9:23AM ; [facility] Anxiety Disorder Nos Unknown JONELLE MOSES PADDING GLUER-FPA, DE ICER INSTALLER-BC Active Last Documented On 2 9:23AM ; [facility] Hyperlipidemia Unknown JONELLE MOSES PADDING GLUER-F PA, DE ICER INSTALLER-BC Active Last Documented On 2 9:23AM ; [facility] Essential Hypertension Unknown JONELLE PATTERSONL P PADDING GLUER-FPA, DE ICER INSTALLER-BC Active Last Documented On 2 9:22AM ; [facility] Plan of Treatment No Plan of Treatment Recorded Assessments Includes: Assessments from this encounter No Assessments Recorded Medical Equipment - Implanted Devices Includes: Current Devices No Medical Equipment Recorded Medications Includes: Medications discussed during this encounter and other current Medications Discontinued / Stopped on this date JONELLE MOSES APRN-FPKaiden DE ICER INSTALLER-BC on 10/31/2022 HYDROcodone-Acetaminophen 5- 325 MG Oral Tablet Provider: JONELLE GORDON DE ICER INSTALLER-BC 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, lumbar region Last Documented On 3 8:43AM By JONELLE ANGEL-BC ; [facility] Current Medications (continue as prescribed) Pregabalin 150 MG Oral Capsule 05/15/2023 Provider: MATTI WELCH Diagnosis: Radiculopathy, l umbar region TAKE 1 CAPSULE BY MOUTH TWICE DAILY Last Documented On 4 1:13PM By JONELLE CHINO ; [facility] HYDROcodone-Acetaminophen 5- 325 MG Oral Tablet 02/21/2023 Provider: MATTI PRESCOTT 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 Methocarbamol 500 MG Oral Tablet 02/02/2023 Provider: MATTI PRESCOTT Diagnosis: Dorsalgia, unspe cified TAKE 1 TABLET BY MOUTH THREE TIMES DAILY NEEDED Last Documented On 3 11:05AM By JONELLE CHINO ; [facility] buPROPion HCl ER (XL) 150 MG Oral Tablet Extended Release 24 Hour 10/18/2022 Provider: Diagnosis: once a day Last Documented On 3 3:22PM By JONELLE CHINO ; [facility] Citalopram Hydrobromide 40 MG Oral Tablet 06/11/2021 Provider: DELTA SIGALA Diagnosis: Last Documented On 2 9:58AM By JONELLE CHINO ; [facility] Albuterol Sulfate HFA 108 (9 0 Base) MCG/ACT Inhalation Aerosol Solution 06/11/2021 Provider: DELTA RAMSEY Diagnosis: Last Documented On 2 9:58AM By JONELLE CHINO ; [facility] Medications Administered Includes: Administered Medications from this encounter No Administered Medications Recorded Results Includes: Results discussed during this encounter No Results Recorded For Specified Dates History of Present Illness Includes: History of Present Illness from this encounter No History of Present Illness Recorded Social History Description Last Updated Tobacco non-user 06/11/2021 Last Documented On 3 3:31PM ; [facility] Difficulty walking 06/11/2021 Last Documented On 3 3:31PM ; [facility] Smoking Status Unknown Procedures and Surgical History Surgical History Last Updated No Pacemaker 06/11/2021 Last Documented On 3 3:31PM ; [facility] Surgical / procedural history Over 20 yr s ago 06/11/2021 Last Documented On 3 3:31PM ; [facility] Medical History Includes: Medical History addressed during this encounter Description Last Updated Denies a fear of falling. 07/08/2021 Last Documented On 3 3:31PM ; [facility] Has had no fall in the last 12 months. 0 07/08/2021 Last Documented On 3 3:31PM ; [facility] Currently wearing eyeglasses 06/11/2021 Last Documented On 3 3:31PM ; [facility] No Pain Pump 06/11/2021 Last Documented On 3 3:31PM ; [facility] No Spinal cord stimulator 06/11/2021 Last Documented On 3 3:31PM ; [facility] Physical therapy 06/11/2021 Last Documented On 3 3:31PM ; [facility] Please list all illnesses/co nditions you have been diagnosed with: Anxiety/panic attacks, high blood pressure, high colest 06/11/2021 Last Documented On 3 3:31PM ; [facility] Please list all surgeries: L eft Knee surgery for torn miniscus in 1998. hiatal hernia repair in October 2013 and again in June 2017 06/11/2021 Last Documented On 3 3:31PM ; [facility] Family History Includes: Family History addressed during this encounter Description Last Updated Family history of Arthritis 06/11/2021 Last Documented On 3 3:31PM ; [facility] Paternal history of reported family hist ory of seizures 06/11/2021 Last Documented On 3 3:31PM ; [facility] Review of Systems Includes: Review of Systems [...] Active Last Documented On 3 3:05PM ; [facility] Meloxicam Allergy 06/11/2021 Active Last Documented On 3 3:05PM ; [facility] Lamotrigine Allergy 06/11/2021 Active Last Documented On 3 3:05PM ; [facility] LaMICtal Allergy Skin Rashes / Eruption of skin 2 Active Last Documented On 3 3:05PM ; [facility] Iodine Allergy Skin Rashes / Eruption of skin 2 Active Last Documented On 3 3:05PM ; [facility] Encounters Encounter Provider Location Date Check-In Time Check-Out Time Diagnosis RX ISSUE/REFILL JONELLE MOSES PADDING GLUER-FPA, DE ICER INSTALLER-BC 11/30/2022 3:31PM 11:59PM Insurance Includes: Active Insurance Policies Plan Name Member ID Group # Subscriber Relationship Effect jad Dates 1 - [facility] [id number] JOHNATHON FLORES Se lf Clinical Notes Includes: Clinical Notes from this encounter * Progress note Date Encounter Last Documented by 11/30/2022 RX ISSUE/REFILL Last documented on 12/01/2022; 8:44 AM, JONELLE MOSES PADDING GLUER-FPA, DE ICER INSTALLER-BC; [facility] Active Problems & Conditions - Anxiety Disorder Nos - Depression - Essential Hypertension - Hyperlipidemia Chief Complaint Phone Call - Chief Concern: Reason for call: Refill Patient is requesting a refill on Hydrocodone ~How is medication taken? BID ~How many are left? 8 Risk Assessment Score: LOW ~[place]: 11/02/2022 Last Office Visit: 10/18/2022 ~Last Drug Screen 10/18/2022: ~Date/Initials: 11/30/2022 TURNER MACHINE. Current Medication - Albuterol Sulfate HFA 108 [...] Assess Need for CT Lung Screen satisfied 11/30/2022. - Assess Tobacco Use satisfied 11/30/2022.
--- OUTSIDE RECORDS SUMMARY | 2024-06-24 18:22 | XMS_ITS | Clinical Summary ---
Author Organization [facility] Address [address] [place] [address] Phone Care Team Providers Care Drum Sealer Name Role Phone JI SIGALAPARDEEP Primary Care Provider [phone] Reason for Visit and Chief Complaint The Chief Complaint is: fOLLOW UPON BACK SURGERY 01/30/2023 ~PATIENT IS TAKING OXYCODONE NOW FROM SURGEON Problems Includes: Problems addressed during this encounter and other active Problems All Visits Onset Date Resolved Date Provider Condition S tatus Depression Unknown JONELLE Lopez JOSUÉ CABLE SPOOLER-FPA, HAND LASTER-BC Active Last Documented On 2 9:23AM ; [facility] Anxiety Disorder Nos Unknown JONELLE Lopez JOSUÉ CABLE SPOOLER-FPA, HAND LASTER-BC Active Last Documented On 2 9:23AM ; [facility] Hyperlipidemia Unknown JONELLE Lopez JOSUÉ CABLE SPOOLER-F PA, HAND LASTER-BC Active Last Documented On 2 9:23AM ; [facility] Essential Hypertension Unknown JONELLE Lopez KUL P CABLE SPOOLER-FPA, HAND LASTER-BC Active Last Documented On 2 9:22AM ; [facility] Plan of Treatment Patient was seen today for 3 chronic unstable conditions of the lumbosacral spine, and central nervous system.Without treatment patient is at risk for significant functional limitations resulting in diminished quality of life and impaired age appropriate activities of daily living. Multiple documents have been reviewed in combination with today's evaluation including imaging studies, outside provider notes, laboratory data, patient self-report questionnaires, and [place] prescription monitoring database entries. Significant social barriers exist to compliance resulting in limited prognosis. - Last Documented On 02/03/2023 11:08AM ; [facility] Education and Decision Aids were provided during visit for: Lifestyle education Last Documented On 3 10:53AM ; [facility] Pill Count: OXYCODONE FROM D R DWIGHT ~Hydrocodone about 1 weeks worth left Last Documented On 3 11:01AM ; [facility] Assessments Includes: Assessments from this encounter Findings - [M46.1 - Sacroiliitis, not elsewhere classified] Sacroiliitis - Last Documented On 02/03/2023 11:08AM ; [facility] - [M54.9 - Dorsalgia, unspecified] DORSALGIA - Last Documented On 02/03/2023 11:08AM ; [facility] - [M51.36 - Other intervertebral disc degeneration, lumbar region] Intervertebral disc degeneration - Last Documented On 02/03/2023 11:08AM ; [facility] - [M47.816 - Spondylosis without myelopathy or radiculopathy, lumbar region] Lumbar spondylosis without myelopathy or radiculopathy - Last Documented On 02/03/2023 11:08AM ; [facility] - [M54.16 - Radiculopathy, lumbar region] Lumbar radiculopathy - Last Documented On 02/03/2023 11:08AM ; [facility] - [G89.4 - Chronic pain syndrome] Chronic pain syndrome - Last Documented On 02/03/2023 11:08AM ; [facility] Instructions Includes: Instructions from this encounter Education and Decision Aids were provided during visit for: Lifestyle education Last Documented On 3 10:53AM ; [facility] Pill Count: OXYCODONE FROM D R DWIGHT ~Hydrocodone about 1 weeks worth left Last Documented On 3 11:01AM ; [facility] Medical Equipment - Implanted Devices Includes: Current Devices No Medical Equipment Recorded Medications Includes: Medications discussed during this encounter and other current Medications Discontinued / Stopped on this date MATTI PRESCOTT on 02/02/2023 Pregabalin 150 MG Oral Capsule Provider: MATTI PRESCOTT Diagnosis: Last Documented On 11:08AM By JONELLE CIHNO ; [facility] Valium 2 MG Oral Tablet Provider: CY GORDON HAND LASTER-BC Diagnosis: Last Documented On 3 10:54AM By Christine DAN ; [facility] Pregabalin 150 MG Oral Capsule Provider: MATTI WELCH Diagnosis: Radiculopathy, l umbar region Last Documented On 3 10:59AM By JONELLE CHINO ; [facility] New / Renewed during this visit MATTI PRESCOTT on 02/03/2023 Pregabalin 150 MG Oral Capsule Provider: MATTI WELCH 30 day supply: 60 capsule, 1 refills Diagnosis: Radiculopathy, lumbar region TAKE 1 CAPSULE BY MOUTH TWICE DAILY [facility] [place] [address] [place], [phone] - Last Documented On 4 12:59PM By JONELLE CHINO ; [facility] Current Medications (continue as prescribed) Pregabalin 150 MG Oral Capsule 05/15/2023 Provider: MATTI WELCH Diagnosis: Radiculopathy, l umbar region TAKE 1 CAPSULE BY MOUTH TWICE DAILY Last Documented On 4 1:13PM By JONELLE CHINO ; [facility] HYDROcodone-Acetaminophen 5- 325 MG Oral Tablet 02/21/2023 Provider: MATTI PRESCOTT 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, lumbar region One tablet twice a day as ne eded for severe pain Last Documented On 3 9:13AM By JONELLE CHINO ; [facility] Methocarbamol 500 MG Oral Tablet 02/02/2023 Provider: MATTI PRESCOTT Diagnosis: Dorsalgia, unspe cified TAKE 1 TABLET BY MOUTH THREE TIMES DAILY NEEDED Last Documented On 3 11:05AM By JONELLE CHINO ; [facility] buPROPion HCl ER (XL) 150 MG Oral Tablet Extended Release 24 Hour 10/18/2022 Provider: Diagnosis: once a day Last Documented On 3 3:22PM By JONELLE CHINO ; [facility] Citalopram Hydrobromide 40 MG Oral Tablet 06/11/2021 Provider: DELTA SIGALA Diagnosis: Last Documented On 2 9:58AM By JONELLE CHINO ; [facility] Albuterol Sulfate HFA 108 (9 0 Base) MCG/ACT Inhalation Aerosol Solution 06/11/2021 Provider: DELTA RAMSEY Diagnosis: Last Documented On 2 9:58AM By JONELLE CHINO ; [facility] Medications Administered Includes: Administered Medications from this encounter No Administered Medications Recorded Vital Signs Includes: Vital Signs from this encounter Vital Name 02/03/2023 10:54A Temp-Temporal 98.1 Height (in) 69 Weight (lb) 193 Body Mass Index 28.5 Body Surface Area 2 Pain Level 7 Last Documented: On 02/03/2023 10:55A M ; [facility] Results Includes: Results discussed during this encounter No Results Recorded For Specified Dates History of Present Illness Includes: History of Present Illness from this encounter HPI PHQ-9 Score: 6 Date:10/18/2022PI Score: Date:MiDAS Score: Date:SOAPP-R Score: 6 LOW Date: 04/25/2022ain Location: lower backQuality: Radiation: back of legs, more so in LTSeverity: 8Timing: Associated Sx: Aggravating Factors: walking, standing up, sitting, coughing, sneezingAlleviating Factors: laying down on sidePast Tx: chiropractor, accupuncture, traction, massage, PT May-July, SI injection 07/22/2021, BLT L5-S1 TFESI 08/19/21, 09/08/2021, 02/23/22 PT Oct-Dec 2021, Left L3-L5 RFA 05/27/2022 and Right 06/03/2022, L SI injection 08/10/22, L5-S1 TFESI 11/03/22 JOHNATHON FLORES is a 52 year old female. - Allergy list reviewed - Allergy list reviewed - Problem list reviewed - Medication reconciliation performed - Medication list reviewed - Medication list reviewed - Prescription Drug Monitoring Program website checked. 01/31/2023 - How much of the medication are you taking a day? EVERY 4 HOURS - How much of the medication are you taking a day? 1 NEEDED - Last dose of medication? Today - Last dose of medication? MONDAY - Pain is continuous - Primary pain location Lower back. running into legs - Primary pain duration Almost constant. really bad when standing or sitting to get up - Secondary pain duration Ususally just an ache that won?t go away - Secondary pain location Running down legs - Pain is burning - Pain is dull, aching - Pain is shooting - Pain is sharp - Pain is pressure like - Pain is deep - Pain is like pins/needles - Relieved by repositioning - Relieved by exercise/PT - Pain aggravated getting in/out of car - Pain aggravated going down stairs - Pain aggravated going up stairs - Pain aggravated lying down - Pain aggravated sitting - Pain aggravated standing - Pain aggravated when out of chair - Pain aggravated by walking - Pain aggravated by bowel movements - Pain aggrated by coughing/sneezing - Pain aggravated lifting - Pain aggravated by sex - Pain aggravated bending - Pain radiating in both thighs - Pain radiates in left foot - No vertigo - Last drug screen appropriate 10/18/2022 Discussion: Patient is 4 days post op L5-S1 fusion with Dr. Easton. The surgeon gave her Oxycodone for 1 week post op. She is off work the next 4-6 weeks. Her post op appointment is scheduled . She initially had some constipation but had a good BM last night and is not on a regimen of Miralax with Senokot. She will return to Hydrocodone when she is finished with the Oxycodone. She is not taking them together. We will see her back in 3 months and as needed. PRIOR VISIT: Having increased sharp pain in the low back. Rare radiating pain down the legs in a S1 dermatomal pattern now since starting Pregabalin. Standing causes a lot of pressure and pain in the low back. We reviewed her most recent MRI. We discussed doing a repeat epidural at L5-S1. Her last epidural at this level was eight months ago and it provided her greater than 50% relief for more than three months of her low back and radicular symptoms. Patient would also like to consult with a surgeon. She has now underwent multiple interventional procedures to include epidural steroid injections, SI joint injections, and lumbar facet ablation. All of which have been beneficial but she would like to consider a more definitive option. She has been dealing with the increased low back pain now for about 16 months. She has a chronic history of low back pain but it has only been significantly impairing her quality of life and daily activities for the last year and half. She continues a home exercise program, multiple medications, and the interventional procedures above. PRIOR VISIT 06/17/22: Here for FU after ablation at L3-5. She feels like the axial pain in the low back is 90% better. She is pleased with her results. However, she has a severe stabbing sharp pain in the upper buttocks L>R that started about 2 weeks ago. On the L it radiates around the pelvis into the groin area. She has difficulty laying on one side for very long. Standing and sitting too long and going from sitting to standing or getting into car causes increased pain. The muscle relaxer has helped with the back spasms, does not make her drowsy, and helps her to sleep better. We will start with an additional 2 weeks of rest, activity modifications, medication, ice, and stretches. If no better then we discussed SI joint injections. Pain is on average 7/10. Pain has been worsening and she is pretty miserable. Taking her NSAID daily. She continues a therapist guided HEP along with Yoga. May need to consider repeat of L5-S1 TFESI if SI joint injections not beneficial and/or SI fusion. FIRST VISIT 06/11/21: Patient presents today as a referral from her primary care Dr Sigala, for acute on chronic low back pain. She reports falling approximately 20 years ago and has had chronic low back pain since that time. She has not had to have any treatment for this for several years. However, about one month ago she became dizzy after starting a new blood pressure medication and fell backwards directly onto her tailbone. Since that time she has had increased pain to the low back. Mostly axial in nature, however, her pain does radiate in the back of the left thigh at times rarely to the calf. She has occasional numbness and tingling in the back of the left leg as well. Coughing, lifting, standing, or sitting for long periods makes the pain worse. If she lays down on her side or does stretches she learned in therapy this helps with the pain. She has had approximately three weeks/6 sessions of physical therapy over in [place]. She is unsure why her primary sent her to [place] as this [place] a very far drive for her. She is taking Baclofen at bedtime which helps her sleep. She is taking Ibuprofen 600 mg in the morning one time a day. This is not controlling her pain well. She reports pain levels of an 8/10. She is using bio freeze with little relief. Significant past medical history of Hypertension and Hyperlipidemia. Her blood pressure has been well-controlled. No history of Coronary Artery Disease or Diabetes. We discussed continuation of physical therapy for up to six weeks to see if this helps with her pain. She states her last session is scheduled for Monday the . She would like to do therapy closer since gas prices are so high right now. Additionally, we discussed stopping Ibuprofen and starting a once daily NSAID, Celebrex. She understands she is to take this with a meal and monitor for blood pressure changes. I will give her a few Tylenol 3 for severe pain only. She understands this is a narcotic pain medication and is to be used sparingly. She also understands that our goal is to not continue narcotic pain medication in the future. We discussed side effects of the medication. Likely at her follow-up visit when she has finished at least six weeks of physical therapy we will order MRI if pain continues at a significant level. We can then discuss interventional procedures at that time. 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 For purposes of reporting this exam the lowest lumbar disc space is regarded as L4-5 with hypoplastic T12 ribs. No acute bony abnormality in the lumbar spine. Severe degenerative disc disease at L4- 5 with mild to moderate lower lumbar facet degeneration. MRI Lumbar Spine 09/02/22 No central canal stenosis. Worsening disc bulging and moderate facet hypertrophy at L3-L4 level. Moderate bilateral neural foraminal stenosis. Stable moderate to severe bilateral neural foraminal stenosis at L5 - S1 from mild to moderate disc bulging and moderate to severe facet hypertrophy. Social History Description Last Updated Tobacco non-user 06/11/2021 Last Documented On 3 10:52AM ; [facility] Difficulty walking 06/11/2021 Last Documented On 3 10:52AM ; [facility] Smoking Status Unknown Procedures and Surgical History Includes: Procedures from this encounter Procedures Code Diagnosis Performing Provider Service L ocation Service Date plan of care reviewed and agreed to Last Documented On 3 10:53AM ; [facility] plan of care reviewed and agreed to by t he patient Last Documented On 3 10:53AM ; [facility] use of tobacco assessment performed 1000F Last Documented On 3 10:53AM ; [facility] patient screened for future fall risk: documentation of any fall with injury in past year 1100F Last Documented On 3 10:53AM ; [facility] falls risk assessment not documented patient ref used 3288F Last Documented On 3 10:53AM ; [facility] review of medications documented 1160F Last Documented On 3 10:53AM ; [facility] assessment of suicide risk performed Last Documented On 3 10:53AM ; [facility] screening for adult depression: impressi on and score six Last Documented On 3 10:53AM ; [facility] standardized depression screening: posit jad for symptoms Last Documented On 3 10:53AM ; [facility] encouragement to exercise Last Documented On 3 10:53AM ; [facility] Clinical summary provided to patient Last Documented On 3 10:53AM ; [facility] SOAPP-R: total score 6 Last Documented On 3 10:53AM ; [facility] Surgical History Last Updated No Pacemaker 06/11/2021 Last Documented On 3 10:52AM ; [facility] Medical History Includes: Medical History addressed during this encounter Description Last Updated Surgical / procedural history L5-S1 Lumb ar Fusion 01/30/[address] Easton 02/03/2023 Last Documented On 3 11:08AM ; [facility] Denies a fear of falling. 07/08/2021 Last Documented On 3 10:52AM ; [facility] Has had no fall in the last 12 months. 0 07/08/2021 Last Documented On 3 10:52AM ; [facility] Currently wearing eyeglasses 06/11/2021 Last Documented On 3 10:52AM ; [facility] No Pain Pump 06/11/2021 Last Documented On 3 10:52AM ; [facility] No Spinal cord stimulator 06/11/2021 Last Documented On 3 10:52AM ; [facility] Physical therapy 06/11/2021 Last Documented On 3 10:52AM ; [facility] Please list all illnesses/co nditions you have been diagnosed with: Anxiety/panic attacks, high blood pressure, high colest 06/11/2021 Last Documented On 3 10:52AM ; [facility] Please list all surgeries: L eft Knee surgery for torn miniscus in 1998. hiatal hernia repair in October 2013 and again in June 2017 06/11/2021 Last Documented On 3 10:52AM ; [facility] Family History Includes: Family History addressed during this encounter Description Last Updated Family history of Arthritis 06/11/2021 Last Documented On 3 10:52AM ; [facility] Paternal history of reported family hist ory of seizures 06/11/2021 Last Documented On 3 10:52AM ; [facility] Review of Systems Includes: Review of Systems from this encounter Systemic: No systemic symptoms other then noted. In poor overall health and fatigue. No recent weight loss. Head: No head symptoms other then noted. Neck: No neck pain. Otolaryngeal: No otolaryngeal symptoms other than noted. Earache and tinnitus. Cardiovascular: No cardiovascular symptoms other than noted and no chest pain or discomfort. Pulmonary: No pulmonary symptoms other than noted. Shortness of breath and wheezing. Gastrointestinal: No difficulty chewing and no dysphagia. Heartburn and obstipation with pain. Genitourinary: No genitourinary symptoms other than noted. Urinary loss of control. Endocrine: No endocrine symptoms other than noted. Muscle weakness and Weakness. Hematologic: No easy bleeding and no tendency for easy bruising. Musculoskeletal: No musculoskeletal symptoms other than noted. Back pain, muscle aches, and pain localized to one or more joints. Neurological: No neurological symptoms other than noted and no fainting passing out with needles or medical procedures. Tremors, ataxia, and numbness. Psychological: No fear of falling and no sleep apnea. Skin: No skin symptoms other than noted. Past Medical: A fall Pt was taking new BP medication that made her dizzy leading her to fall. This was a month ago. Pt's PCP changed medication to p.m. to prevent this. A fall with injury. Mental Status Includes: Mental Status from this encounter No Mental Status Recorded Functional Status Includes: Functional Status from this encounter No Functional Status Recorded Physical Exam Includes: Physical Exam from this encounter Allergies Includes: Active Allergies Substance Type Reaction Onset Date Resolved Date Statu s Shellfish Allergy 06/11/2021 Active Last Documented On 3 3:05PM ; [facility] Meloxicam Allergy 06/11/2021 Active Last Documented On 3 3:05PM ; [facility] Lamotrigine Allergy 06/11/2021 Active Last Documented On 3 3:05PM ; [facility] LaMICtal Allergy Skin Rashes / Eruption of skin 2 Active Last Documented On 3 3:05PM ; [facility] Iodine Allergy Skin Rashes / Eruption of skin 2 Active Last Documented On 3 3:05PM ; [facility] Encounters Encounter Provider Location Date Check-In Time Check-Out Time Diagnosis TELEHE[employer] JONELLE MOSES CABLE SPOOLER-FPA, HAND LASTER-BC [facility] 02/04/20 23 10:50AM 11:33AM Chronic Pain Syndrome,Sacroili itis,Intervertebr al Disc Degeneration,Lumb ar Radiculopathy,Spo ndylosis Without Myelopathy Or Radiculopathy Lumbar Region,Dorsalgia Insurance Includes: Active Insurance Policies Plan Name Member ID Group # Subscriber Relationship Effect jad Dates 1 - [facility] [id number] JOHNATHON FLORES Se lf Clinical Notes Includes: Clinical Notes from this encounter * Progress note Date Encounter Last Documented by 02/03/2023 TELEHEALTH Last documented on 02/03/2023; 11:08 AM, JONELLE PATTERSONLP CABLE SPOOLER-FPA, HAND LASTER-BC; [facility] Active Problems & Conditions - Anxiety Disorder Nos - Depression - Essential Hypertension - Hyperlipidemia Chief Complaint The Chief Complaint is: FOLLOW UPON BACK SURGERY 01/30/2023 PATIENT IS TAKING OXYCODONE NOW FROM SURGEON. History of Present Illness PHQ-9 Score: 6 Date:10/18/2022 BPI Score: Date: MiDAS Score: Date: SOAPP-R Score: 6 LOW Date: 04/25/2022 Pain Location: lower back Quality: Radiation: back of legs, more so in LT Severity: 8 Timing: Associated Sx: Aggravating Factors: walking, standing up, sitting, coughing, sneezing Alleviating Factors: laying down on side Past Tx: chiropractor, accupuncture, traction, massage, PT May-July, SI injection 07/22/2021, BLT L5-S1 TFESI 08/19/21, 09/08/2021, 02/23/22 PT Oct-Dec 2021, Left L3- L5 RFA 05/27/2022 and Right 06/03/2022, L SI injection 08/10/22, L5-S1 TFESI 11/03/22 JOHNATHON FLORES is a 52 year old female. - Allergy list reviewed - Allergy list reviewed - Problem list reviewed - Medication reconciliation performed - Medication list reviewed - Medication list reviewed - Prescription Drug Monitoring Program website checked. 01/31/2023 - How much of the medication are you taking a day? EVERY 4 HOURS - How much of the medication are you taking a day? 1 NEEDED - Last dose of medication? Today - Last dose of medication? MONDAY - Pain is continuous - Primary pain location Lower back. running into legs - Primary pain duration Almost constant. really bad when standing or sitting to get up - Secondary pain duration Ususally just an ache that won?t go away - Secondary pain location Running down legs - Pain is burning - Pain is dull, aching - Pain is shooting - Pain is sharp - Pain is pressure like - Pain is deep - Pain is like pins/needles - Relieved by repositioning - Relieved by exercise/PT - Pain aggravated getting in/out of car - Pain aggravated going down stairs - Pain aggravated going up stairs - Pain aggravated lying down - Pain aggravated sitting - Pain aggravated standing - Pain aggravated when out of chair - Pain aggravated by walking - Pain aggravated by bowel movements - Pain aggrated by coughing/sneezing - Pain aggravated lifting - Pain aggravated by sex - Pain aggravated bending - Pain radiating in both thighs - Pain radiates in left foot - No vertigo - Last drug screen appropriate 10/18/2022 Discussion: Patient is 4 days post op L5-S1 fusion with Dr. Easton. The surgeon gave her Oxycodone for 1 week post op. She is off work the next 4-6 weeks. Her post op appointment is scheduled . She initially had some constipation but had a good BM last night and is not on a regimen of Miralax with Senokot. She will return to Hydrocodone when she is finished with the Oxycodone. She is not taking them together. We will see her back in 3 months and as needed. PRIOR VISIT: Having increased sharp pain in the low back. Rare radiating pain down the legs in a S1 dermatomal pattern now since starting Pregabalin. Standing causes a lot of pressure and pain in the low back. We reviewed her most recent MRI. We discussed doing a repeat epidural at L5-S1. Her last epidural at this level was eight months ago and it provided her greater than 50% relief for more than three months of her low back and radicular symptoms. Patient would also like to consult with a surgeon. She has now underwent multiple interventional procedures to include epidural steroid injections, SI joint injections, and lumbar facet ablation. All of which have been beneficial but she would like to consider a more definitive option. She has been dealing with the increased low back pain now for about 16 months. She has a chronic history of low back pain but it has only been significantly impairing her quality of life and daily activities for the last year and half. She continues a home exercise program, multiple medications, and the interventional procedures above. PRIOR VISIT 06/17/22: Here for FU after ablation at L3-5. She feels like the axial pain in the low back is 90% better. She is pleased with her results. However, she has a severe stabbing sharp pain in the upper buttocks L>R that started about 2 weeks ago. On the L it radiates around the pelvis into the groin area. She has difficulty laying on one side for very long. Standing and sitting too long and going from sitting to standing or getting into car causes increased pain. The muscle relaxer has helped with the back spasms, does not make her drowsy, and helps her to sleep better. We will start with an additional 2 weeks of rest, activity modifications, medication, ice, and stretches. If no better then we discussed SI joint injections. Pain is on average 7/10. Pain has been worsening and she is pretty miserable. Taking her NSAID daily. She continues a therapist guided HEP along with Yoga. May need to consider repeat of L5-S1 TFESI if SI joint injections not beneficial and/or SI fusion. FIRST VISIT 06/11/21: Patient presents today as a referral from her primary care Dr Sigala, for acute on chronic low back pain. She reports falling approximately 20 years ago and has had chronic low back pain since that time. She has not had to have any treatment for this for several years. However, about one month ago she became dizzy after starting a new blood pressure medication and fell backwards directly onto her tailbone. Since that time she has had increased pain to the low back. Mostly axial in nature, however, her pain does radiate in the back of the left thigh at times rarely to the calf. She has occasional numbness and tingling in the back of the left leg as well. Coughing, lifting, standing, or sitting for long periods makes the pain worse. If she lays down on her side or does stretches she learned in therapy this helps with the pain. She has had approximately three weeks/6 sessions of physical therapy over in [place]. She is unsure why her primary sent her to [place] as this is a very far drive for her. She is taking Baclofen at bedtime which helps her sleep. She is taking Ibuprofen 600 mg in the morning one time a day. This is not controlling her pain well. She reports pain levels of an 8/10. She is using bio freeze with little relief. Significant past medical history of Hypertension and Hyperlipidemia. Her blood pressure has been well-controlled. No history of Coronary Artery Disease or Diabetes. We discussed continuation of physical therapy for up to six weeks to see if this helps with her pain. She states her last session is scheduled for Monday the . She would like to do therapy closer since gas prices are so high right now. Additionally, we discussed stopping Ibuprofen and starting a once daily NSAID, Celebrex. She understands she is to take this with a meal and monitor for blood pressure changes. I will give her a few Tylenol 3 for severe pain only. She understands this is a narcotic pain medication and is to be used sparingly. She also understands that our goal is to not continue narcotic pain medication in the future. We discussed side effects of the medication. Likely at her follow-up visit when she has finished at least six weeks of physical therapy we will order MRI if pain continues at a significant level. We can then discuss interventional procedures at that time. 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 For purposes of reporting this exam the lowest lumbar disc space is regarded as L4-5 with hypoplastic T12 ribs. No acute bony abnormality in the lumbar spine. Severe degenerative disc disease at L4- 5 with mild to moderate lower lumbar facet degeneration. MRI Lumbar Spine 09/02/22 No central canal stenosis. Worsening disc bulging and moderate facet hypertrophy at L3-L4 level. Moderate bilateral neural foraminal stenosis. Stable moderate to severe bilateral neural foraminal stenosis at L5 - S1 from mild to moderate disc bulging and moderate to severe facet hypertrophy. Current Medication - Albuterol Sulfate HFA 108 [...] Oral Tablet 0 days, 0 refills - HYDROcodone-Acetaminophen 5-325 MG Oral Tablet One tablet twice a day as needed for severe pain, 30 days, 0 refills - Methocarbamol 500 MG Oral Tablet TAKE 1 TABLET BY MOUTH THREE TIMES DAILY NEEDED, 30 days, 0 refills - oxyCODONE HCl 5 MG Oral Tablet 7 days, 0 refills Past Medical/Surgical History Reported: [...] history L5-S1 Lumbar Fusion 01/30/[address] Easton. No Pacemaker. Physical Trauma: Has had no fall in the last 12 months. and Denies a fear of falling. Social History Difficulty walking. Tobacco use: Tobacco non-user. Allergies - Iodine Reaction: Skin Rashes / Eruption of skin - LaMICtal Reaction: Skin Rashes / Eruption of skin - Lamotrigine - Meloxicam - Shellfish Family History Arthritis Paternal: Reported family history of seizures Review Of Systems Systemic: No systemic symptoms other then noted. In poor overall health and fatigue. No recent weight loss. Head: No head symptoms other then noted. Neck: No neck pain. Otolaryngeal: No otolaryngeal symptoms other than noted. Earache and tinnitus. Cardiovascular: No cardiovascular symptoms other than noted and no chest pain or discomfort. Pulmonary: No pulmonary symptoms other than noted. Shortness of breath and wheezing. Gastrointestinal: No difficulty chewing and no dysphagia. Heartburn and obstipation with pain. Genitourinary: No genitourinary symptoms other than noted. Urinary loss of control. Endocrine: No endocrine symptoms other than noted. Muscle weakness and Weakness. Hematologic: No easy bleeding and no tendency for easy bruising. Musculoskeletal: No musculoskeletal symptoms other than noted. Back pain, muscle aches, and pain localized to one or more joints. Neurological: No neurological symptoms other than noted and no fainting passing out with needles or medical procedures. Tremors, ataxia, and numbness. Psychological: No fear of falling and no sleep apnea. Skin: No skin symptoms other than noted. Past Medical: A fall Pt was taking new BP medication that made her dizzy leading her to fall. This was a month ago. Pt's PCP changed medication to p.m. to prevent this. A fall with injury. Physical Findings - Vitals taken 02/03/2023 10:54 am Temp-Temporal 98.1 F Height 69 in Weight 193 lbs Body Mass Index 28.5 kg/m2 Body Surface Area 2 m2 Pain Level 7 Pain Level Note LUMBAR TO STOMACH Psychiatric: Psychiatric: Value PHQ9 score: 6 PRIOR EXAM: Constitutional Well developed. Well nourished. No acute distress. HEENT: NC/AT. Anicteric. Clear Conjunctiva. PERRLA. MM's pink/moist. Oropharynx without erythema or exudate. Neck supple. No thyromegally. No palpable masses. No lymphadenopathy in cervical chain bilaterally. CVS: RRR. No murmurs. No gallops. No rubs. No peripheral edema. Peripheral pulses palpable in all extremities. Pulmonary: CTA bilaterally. No wheezes. No rales. No crackles. No rubs. Spine/MSK: Negative straight leg bilaterally. Negative compression, distraction tests. Positive Kings's and thigh thrust bilaterally. Champlain's positive bilaterally. Tender lower facets and bilateral SI joints. Good ROM to lumbar spine with increased pain on extension. Gait: Not antalgic. No steppage gait. No Trendelenburg gait. No circumspected gait pattern. Heel walk normal. Toe walk normal. Tandem gait normal. Neuro: Awake. Alert. Oriented x3. DTR's intact in all extremities. DTR's equal in all extremities. No focal neurologic deficit. Gisy-ie-eixk normal bilaterally. Psych: No apparent distress. Mood normal. Affect normal. Grimacing with exam. Tests Educational Testing: Questionnaires PHQ-9: Value SOAPP-R: total score 6 Assessment - [M46.1 - Sacroiliitis, not elsewhere classified] Sacroiliitis - [M54.9 - Dorsalgia, unspecified] DORSALGIA - [M51.36 - Other intervertebral disc degeneration, lumbar region] Intervertebral disc degeneration - [M47.816 - Spondylosis without myelopathy or radiculopathy, lumbar region] Lumbar spondylosis without myelopathy or radiculopathy - [M54.16 - Radiculopathy, lumbar region] Lumbar radiculopathy - [G89.4 - Chronic pain syndrome] Chronic pain syndrome Therapy - Encouragement to exercise. - Assessment of suicide risk performed - Clinical summary provided to patient. - Plan of care reviewed and agreed to by the patient. Counseling/Education - Lifestyle education - Pill Count: OXYCODONE FROM DR DWIGHT Moss about 1 weeks worth left Discussed Ok to take Hydrocodone 3-4 times per day for 7-10 days when finished with Oxycodone then start to go back down to 1-2 times daily only as needed for severe pain. FU as scheduled with the surgeon. FU w/ pain clinic in 3 months or sooner if needed. Patient is on chronic opioid therapy and tolerating well with no report of adverse symptoms or side effects. Patient reports improvement in pain and functional capacity. Objective measures of pain interference and physical functioning show clinically significant benefit from therapy. Patient expresses understanding of safe and appropriate use of opioids for analgesia. and demonstrates the same. Random pill counts and urine drug screens have been appropriate. This and review of the [facility] database shows no evidence of misuse, abuse, diversion or signs of addiction/use disorder. Patient advised of risks and benefits of medication including the development of tolerance, dependence, withdrawal, addiction, constipation/obstipation, itching, allergic reactions, sedation, worsening depression/anxiety, hormonal perturbations, cognitive impairment or impairment in judgement, psychomotor slowing/impairment, intoxication, injury/accident, DWI/DUI, respiratory depression or failure, development of hyperalgesia, overdose and . Patient is aware that the combination of opioid medications in any form, whether used over the short term or chronically, with other sedative or psychoactive medication including but not limited to benzodiazepines, muscle relaxants, THC, alcohol, hypnotics/sleep medications or other illicit drugs can result in an increased risk of overdose and and is discouraged. Patient is aware that in all cases the lowest effective dose of opioids should be used and doses should be weaned as tolerated as pain improves. Opioid consent form and patient-physician agreement have been reviewed with the patient with all questions satisfactorily elicited asked and answered. These documents have been signed, witnessed and entered into the patient record with a copy provided to the patient. Patient understands that violation of this agreement could result in discontinuation of controlled substances including opioids and possible dismissal from the practice. Patient was further instructed today on taking medication correctly; storing medication securely; disposing of medication properly. Patient was warned against sharing medication and escalating doses without the prescribing provider's knowledge and instruction. Patient was instructed to call the office directly for refills of any controlled substance 4-5 days in advance to avoid unnecessary delays or disruptions in their dosing.. Plan StartCited - Other PHY ORDER/COMMENT Please request records from Dr Dwight Nixon StartCited - Radiculopathy, lumbar region Pregabalin 150 MG capsule TAKE 1 CAPSULE BY MOUTH TWICE DAILY, 30 days, 1 refills EndCited Patient was seen today for 3 chronic unstable conditions of the lumbosacral spine, and central nervous system.Without treatment patient is at risk for significant functional limitations resulting in diminished quality of life and impaired age appropriate activities of daily living. Multiple documents have been reviewed in combination with today's evaluation including imaging studies, outside provider notes, laboratory data, patient self-report questionnaires, and [place] prescription monitoring database entries. Significant social barriers exist to compliance resulting in limited prognosis. Practice Management Use of tobacco assessment performed and patient screened for future fall risk documentation of any fall with injury in past year Falls risk assessment not documented patient refused Review of medications documented; Standardized depression screening: positive for symptoms and for adult impression and score six; [79587] Established outpatient, medically appropriate H&P, moderate level decision making, 30-39 minutes. A total of 16 minutes were spent on this patient's care and evaluation, as above. Results of this interaction were communicated directly to the patient's referring and/or primary care provider. All imaging studies and test results discussed in the above document were personally reviewed and evaluated by the performing provider. For all patients on acute or chronic opioids, ongoing need for opioid analgesia is assessed at each visit with consideration of discontinuation or wean to lowest effective dose when possible and appropriate. Contents of this document have been edited for correctness, but may be subject to typographical or police pilot errors. Verify all diagnoses, medications, dosages, and patient instructions with patient and/or the originator of this document. Telehealth Visit: Audio and video. Patient called from their home. Provider located at the [facility] Clinical Services office. Patient consents to bill insurance for this visit. No exam completed. If at anytime it was felt patient need to be evaluated arrangements would be made. Health Reminders - Assess BMI satisfied 02/03/2023. - Assess Need for CT Lung Screen satisfied 02/03/2023. - Assess Tobacco Use satisfied 02/03/2023. - Depression Screening satisfied 02/03/2023. - Follow Up Plan BMI Management satisfied 02/03/2023. - Follow up plan for Depression Screening satisfied 02/03/2023.
--- OUTSIDE RECORDS SUMMARY | 2024-06-24 18:23 | XMS_ITS ---
Care Plan - [facility] Created on: June 24, 2024 JOHNATHON FLORES : 1970 Sex: Female Author Organization [facility] Address [address] [place] [address] Phone Care Team Providers Care Poultry Service Technician Name Role Phone DELTA SIGALA Primary Care Provider [phone]
--- OUTSIDE RECORDS SUMMARY | 2024-06-24 18:23 | XMS_ITS | Clinical Summary ---
Author Organization [facility] Address [address] [place] [id number] Phone Care Team Providers Care Hide Salter Name Role Phone DELTA SIGALA Primary Care Provider [phone] Reason for Visit and Chief Complaint * PHONE CALL Problems Includes: Problems addressed during this encounter and other active Problems All Visits Onset Date Resolved Date Provider Condition S tatus Depression Unknown JONELLE MOSES SCRUMMASTER-FPA, REWEAVER-BC Active Last Documented On 2 9:23AM ; [facility] Anxiety Disorder Nos Unknown JONELLE PATTERSONLP SCRUMMASTER-FPA, REWEAVER-BC Active Last Documented On 2 9:23AM ; [facility] Hyperlipidemia Unknown JONELLE MOSES SCRUMMASTER-F PA, REWEAVER-BC Active Last Documented On 2 9:23AM ; [facility] Essential Hypertension Unknown JONELLE PATTERSONL P SCRUMMASTER-FPA, REWEAVER-BC Active Last Documented On 2 9:22AM ; [facility] Plan of Treatment No Plan of Treatment Recorded Assessments Includes: Assessments from this encounter No Assessments Recorded Medical Equipment - Implanted Devices Includes: Current Devices No Medical Equipment Recorded Medications Includes: Medications discussed during this encounter and other current Medications Current Medications (continue as prescribed) Pregabalin 150 MG Oral Capsule 05/15/2023 Provider: JONELLE MCFADDEN REWEAVER-BC Diagnosis: Radiculopathy, l umbar region TAKE 1 CAPSULE BY MOUTH TWICE DAILY Last Documented On 4 1:13PM By JONELLE SOLOP-BC ; [facility] HYDROcodone-Acetaminophen 5- 325 MG Oral Tablet 02/21/2023 Provider: MATTI PRESCOTT 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, lumbar region One tablet twice a day as ne eded for severe pain Last Documented On 3 9:13AM By JONELLE CHINO ; [facility] Methocarbamol 500 MG Oral Tablet 02/02/2023 Provider: MATTI PRESCOTT Diagnosis: Dorsalgia, unspe cified TAKE 1 TABLET BY MOUTH THREE TIMES DAILY NEEDED Last Documented On 3 11:05AM By JONELLE CHINO ; [facility] buPROPion HCl ER (XL) 150 MG Oral Tablet Extended Release 24 Hour 10/18/2022 Provider: Diagnosis: once a day Last Documented On 3 3:22PM By JONELLE CHINO ; [facility] Citalopram Hydrobromide 40 MG Oral Tablet 06/11/2021 Provider: DELTA SIGALA Diagnosis: Last Documented On 2 9:58AM By JONELLE CHINO ; [facility] Albuterol Sulfate HFA 108 (9 0 Base) MCG/ACT Inhalation Aerosol Solution 06/11/2021 Provider: DELTA RAMSEY Diagnosis: Last Documented On 2 9:58AM By JONELLE CHINO ; [facility] Medications Administered Includes: Administered Medications [...] Active Last Documented On 3 3:05PM ; [facility] Meloxicam Allergy 06/11/2021 Active Last Documented On 3 3:05PM ; [facility] Lamotrigine Allergy 06/11/2021 Active Last Documented On 3 3:05PM ; [facility] LaMICtal Allergy Skin Rashes / Eruption of skin 2 Active Last Documented On 3 3:05PM ; [facility] Iodine Allergy Skin Rashes / Eruption of skin 2 Active Last Documented On 3 3:05PM ; [facility] Encounters Encounter Provider Location Date Check-In Time Check-Out Time Diagnosis * PHONE CALL JONELLE Lopez JOSUÉ SCRUMMASTER-FPA, REWEAVER-BC 05/16/2023 2:42PM 11:59PM Insurance Includes: Active Insurance Policies Plan Name Member ID Group # Subscriber Relationship Effect jad Dates 1 - [facility] [id number] JOHNATHON FLORES Se lf Clinical Notes Includes: Clinical Notes from this encounter No Clinical Notes Recorded
--- OUTSIDE RECORDS SUMMARY | 2024-06-24 18:23 | XMS_ITS | Clinical Summary ---
Author Organization [facility] Address [address] [place] [phone] Phone Care Team Providers Care Advanced Practice Nurse Psychotherapist Name Role Phone JI SIGALAPARDEEP Primary Care Provider [phone] Reason for Visit and Chief Complaint RX ISSUE/REFILL Problems Includes: Problems addressed during this encounter and other active Problems All Visits Onset Date Resolved Date Provider Condition S tatus Depression Unknown JONELLE MOSES LEAD PHARMACY TECHNICIAN-FPA, FRUIT CANNER-BC Active Last Documented On 2 9:23AM ; [facility] Anxiety Disorder Nos Unknown JONELLE MOSES LEAD PHARMACY TECHNICIAN-FPA, FRUIT CANNER-BC Active Last Documented On 2 9:23AM ; [facility] Hyperlipidemia Unknown JONELLE MOSES LEAD PHARMACY TECHNICIAN-F PA, FRUIT CANNER-BC Active Last Documented On 2 9:23AM ; [facility] Essential Hypertension Unknown JONELLE PATTERSONL P LEAD PHARMACY TECHNICIAN-FPA, FRUIT CANNER-BC Active Last Documented On 2 9:22AM ; [facility] Plan of Treatment No Plan of Treatment Recorded Assessments Includes: Assessments from this encounter No Assessments Recorded Medical Equipment - Implanted Devices Includes: Current Devices No Medical Equipment Recorded Medications Includes: Medications discussed during this encounter and other current Medications Discontinued / Stopped on this date JONELLE MOSES APRN-FPKaiden FRUIT CANNER-BC on 10/31/2022 HYDROcodone-Acetaminophen 5- 325 MG Oral Tablet Provider: JONELLE GORDON FRUIT CANNER-BC 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, lumbar region Last Documented On 3 8:43AM By JONELLE ANGEL-BC ; [facility] Current Medications (continue as prescribed) Pregabalin 150 MG Oral Capsule 05/15/2023 Provider: MATTI WELCH Diagnosis: Radiculopathy, l umbar region TAKE 1 CAPSULE BY MOUTH TWICE DAILY Last Documented On 4 1:13PM By JONELLE CHINO ; [facility] HYDROcodone-Acetaminophen 5- 325 MG Oral Tablet 02/21/2023 Provider: MATTI PRESCOTT 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, lumbar region One tablet twice a day as ne eded for severe pain Last Documented On 3 9:13AM By JONELLE CHINO ; [facility] Methocarbamol 500 MG Oral Tablet 02/02/2023 Provider: MATTI PRESCOTT Diagnosis: Dorsalgia, unspe cified TAKE 1 TABLET BY MOUTH THREE TIMES DAILY NEEDED Last Documented On 3 11:05AM By JONELLE CHNIO ; [facility] buPROPion HCl ER (XL) 150 MG Oral Tablet Extended Release 24 Hour 10/18/2022 Provider: Diagnosis: once a day Last Documented On 3 3:22PM By JONELLE CHINO ; [facility] Citalopram Hydrobromide 40 MG Oral Tablet 06/11/2021 Provider: DELTA SIGALA Diagnosis: Last Documented On 2 9:58AM By JONELLE CHINO ; [facility] Albuterol Sulfate HFA 108 (9 0 Base) MCG/ACT Inhalation Aerosol Solution 06/11/2021 Provider: DELTA RAMSEY Diagnosis: Last Documented On 2 9:58AM By JONELLE CHINO ; [facility] Medications Administered Includes: Administered Medications from this encounter No Administered Medications Recorded Results Includes: Results discussed during this encounter No Results Recorded For Specified Dates History of Present Illness Includes: History of Present Illness from this encounter No History of Present Illness Recorded Social History Description Last Updated Tobacco non-user 06/11/2021 Last Documented On 3 3:31PM ; [facility] Difficulty walking 06/11/2021 Last Documented On 3 3:31PM ; [facility] Smoking Status Unknown Procedures and Surgical History Surgical History Last Updated No Pacemaker 06/11/2021 Last Documented On 3 3:31PM ; [facility] Surgical / procedural history Over 20 yr s ago 06/11/2021 Last Documented On 3 3:31PM ; [facility] Medical History Includes: Medical History addressed during this encounter Description Last Updated Denies a fear of falling. 07/08/2021 Last Documented On 3 3:31PM ; [facility] Has had no fall in the last 12 months. 0 07/08/2021 Last Documented On 3 3:31PM ; [facility] Currently wearing eyeglasses 06/11/2021 Last Documented On 3 3:31PM ; [facility] No Pain Pump 06/11/2021 Last Documented On 3 3:31PM ; [facility] No Spinal cord stimulator 06/11/2021 Last Documented On 3 3:31PM ; [facility] Physical therapy 06/11/2021 Last Documented On 3 3:31PM ; [facility] Please list all illnesses/co nditions you have been diagnosed with: Anxiety/panic attacks, high blood pressure, high colest 06/11/2021 Last Documented On 3 3:31PM ; [facility] Please list all surgeries: L eft Knee surgery for torn miniscus in 1998. hiatal hernia repair in October 2013 and again in June 2017 06/11/2021 Last Documented On 3 3:31PM ; [facility] Family History Includes: Family History addressed during this encounter Description Last Updated Family history of Arthritis 06/11/2021 Last Documented On 3 3:31PM ; [facility] Paternal history of reported family hist ory of seizures 06/11/2021 Last Documented On 3 3:31PM ; [facility] Review of Systems Includes: Review [...] Active Last Documented On 3 3:05PM ; [facility] Meloxicam Allergy 06/11/2021 Active Last Documented On 3 3:05PM ; [facility] Lamotrigine Allergy 06/11/2021 Active Last Documented On 3 3:05PM ; [facility] LaMICtal Allergy Skin Rashes / Eruption of skin 2 Active Last Documented On 3 3:05PM ; [facility] Iodine Allergy Skin Rashes / Eruption of skin 2 Active Last Documented On 3 3:05PM ; [facility] Encounters Encounter Provider Location Date Check-In Time Check-Out Time Diagnosis RX ISSUE/REFILL JONELLE MOSES LEAD PHARMACY TECHNICIAN-FPA, FRUIT CANNER-BC 11/30/2022 3:31PM 11:59PM Insurance Includes: Active Insurance Policies Plan Name Member ID Group # Subscriber Relationship Effect jad Dates 1 - [facility] [id number] JOHNATHON FLORES Se lf Clinical Notes Includes: Clinical Notes from this encounter * Progress note Date Encounter Last Documented by 11/30/2022 RX ISSUE/REFILL Last documented on 12/01/2022; 8:44 AM, JONELLE MOSES LEAD PHARMACY TECHNICIAN-FPA, FRUIT CANNER-BC; [facility] Active Problems & Conditions - Anxiety Disorder Nos - Depression - Essential Hypertension - Hyperlipidemia Chief Complaint Phone Call - Chief Concern: Reason for call: Refill Patient is requesting a refill on Hydrocodone ~How is medication taken? BID ~How many are left? 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 Current Medication - Albuterol Sulfate HFA 108 [...]
--- OUTSIDE RECORDS SUMMARY | 2024-06-24 18:23 | XMS_ITS | Clinical Summary ---
Author Organization [facility] Address [address] [place] [address] Phone Care Team Providers Care Biological Plant Operator Name Role Phone JI SIGALAPARDEEP Primary Care Provider [phone] Reason for Visit and Chief Complaint The Chief Complaint is: fOLLOW UPON BACK SURGERY 01/30/2023 ~PATIENT IS TAKING OXYCODONE NOW FROM SURGEON Problems Includes: Problems addressed during this encounter and other active Problems All Visits Onset Date Resolved Date Provider Condition S tatus Depression Unknown JONELLE Lopez JOSUÉ RN [facility]-FPA, SUIT MAKER-BC Active Last Documented On 2 9:23AM ; [facility] Anxiety Disorder Nos Unknown JONELLE Lopez JOSUÉ RN [employer]-FPA, SUIT MAKER-BC Active Last Documented On 2 9:23AM ; [facility] Hyperlipidemia Unknown JONELLE Lopez JOSUÉ RN [facility]-F PA, SUIT MAKER-BC Active Last Documented On 2 9:23AM ; [facility] Essential Hypertension Unknown JONELLE Lopez KUL P RN [facility]-FPA, SUIT MAKER-BC Active Last Documented On 2 9:22AM ; [facility] Plan of Treatment Patient was seen today [...] notes, laboratory data, patient self-report questionnaires, and [place] prescription monitoring database entries. Significant social barriers exist to compliance resulting in limited prognosis. - Last Documented On 02/03/2023 11:08AM ; [facility] Education and Decision Aids were provided during visit for: Lifestyle education Last Documented On 3 10:53AM ; [facility] Pill Count: OXYCODONE FROM D R DWIGHT ~Hydrocodone about 1 weeks worth left Last Documented On 3 11:01AM ; [facility] Assessments Includes: Assessments from this encounter Findings - [M46.1 - Sacroiliitis, not elsewhere classified] Sacroiliitis - Last Documented On 02/03/2023 11:08AM ; [facility] - [M54.9 - Dorsalgia, unspecified] DORSALGIA - Last Documented On 02/03/2023 11:08AM ; [facility] - [M51.36 - Other intervertebral disc degeneration, lumbar region] Intervertebral disc degeneration - Last Documented On 02/03/2023 11:08AM ; [facility] - [M47.816 - Spondylosis without myelopathy or radiculopathy, lumbar region] Lumbar spondylosis without myelopathy or radiculopathy - Last Documented On 02/03/2023 11:08AM ; [facility] - [M54.16 - Radiculopathy, lumbar region] Lumbar radiculopathy - Last Documented On 02/03/2023 11:08AM ; [facility] - [G89.4 - Chronic pain syndrome] Chronic pain syndrome - Last Documented On 02/03/2023 11:08AM ; [facility] Instructions Includes: Instructions from this encounter Education and Decision Aids were provided during visit for: Lifestyle education Last Documented On 3 10:53AM ; [facility] Pill Count: OXYCODONE FROM D R DWIGHT ~Hydrocodone about 1 weeks worth left Last Documented On 3 11:01AM ; [facility] Medical Equipment - Implanted Devices Includes: Current Devices No Medical Equipment Recorded Medications Includes: Medications discussed during this encounter and other current Medications Discontinued / Stopped on this date MATTI PRESCOTT on 02/02/2023 Pregabalin 150 MG Oral Capsule Provider: MATTI PRESCOTT Diagnosis: Last Documented On 11:08AM By JONLELE CHINO ; [facility] Valium 2 MG Oral Tablet Provider: CY GORDON SUIT MAKER-BC Diagnosis: Last Documented On 3 10:54AM By Christine DAN ; [facility] Pregabalin 150 MG Oral Capsule Provider: MATTI WELCH Diagnosis: Radiculopathy, l umbar region Last Documented On 3 10:59AM By JONELLE CHINO ; [facility] New / Renewed during this visit MATTI PRESCOTT on 02/03/2023 Pregabalin 150 MG Oral Capsule Provider: MATTI WELCH 30 day supply: 60 capsule, 1 refills Diagnosis: Radiculopathy, lumbar region TAKE 1 CAPSULE BY MOUTH TWICE DAILY [facility] [place] [address] [place], [phone] - Last Documented On 4 12:59PM By JONELLE CHINO ; [facility] Current Medications (continue as prescribed) Pregabalin 150 MG Oral Capsule 05/15/2023 Provider: MATTI WELCH Diagnosis: Radiculopathy, l umbar region TAKE 1 CAPSULE BY MOUTH TWICE DAILY Last Documented On 4 1:13PM By JONELLE CHINO ; [facility] HYDROcodone-Acetaminophen 5- 325 MG Oral Tablet 02/21/2023 Provider: MATTI PRESCOTT 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, lumbar region One tablet twice a day as ne eded for severe pain Last Documented On 3 9:13AM By JONELLE CHINO ; [facility] Methocarbamol 500 MG Oral Tablet 02/02/2023 Provider: MATTI PRESCOTT Diagnosis: Dorsalgia, unspe cified TAKE 1 TABLET BY MOUTH THREE TIMES DAILY NEEDED Last Documented On 3 11:05AM By JONELLE CHINO ; [facility] buPROPion HCl ER (XL) 150 MG Oral Tablet Extended Release 24 Hour 10/18/2022 Provider: Diagnosis: once a day Last Documented On 3 3:22PM By JONELLE CHINO ; [facility] Citalopram Hydrobromide 40 MG Oral Tablet 06/11/2021 Provider: DELTA SIGALA Diagnosis: Last Documented On 2 9:58AM By JONELLE CHINO ; [facility] Albuterol Sulfate HFA 108 (9 0 Base) MCG/ACT Inhalation Aerosol Solution 06/11/2021 Provider: DELTA RAMSEY Diagnosis: Last Documented On 2 9:58AM By JONELLE CHINO ; [facility] Medications Administered Includes: Administered Medications from this encounter No Administered Medications Recorded Vital Signs Includes: Vital Signs from this encounter Vital Name 02/03/2023 10:54A Temp-Temporal 98.1 Height (in) 69 Weight (lb) 193 Body Mass Index 28.5 Body Surface Area 2 Pain Level 7 Last Documented: On 02/03/2023 10:55A M ; [facility] Results Includes: Results discussed during this encounter [...] weeks/6 sessions of physical therapy over in [place]. She is unsure why her primary sent her to [place] as this is a very far drive [...] 06/11/2021 Last Documented On 3 10:52AM ; [facility] Difficulty walking 06/11/2021 Last Documented On 3 10:52AM ; [facility] Smoking Status Unknown Procedures and Surgical History Includes: Procedures from this encounter Procedures Code Diagnosis Performing Provider Service L ocation Service Date plan of care reviewed and agreed to Last Documented On 3 10:53AM ; [facility] plan of care reviewed and agreed to by t he patient Last Documented On 3 10:53AM ; [facility] use of tobacco assessment performed 1000F Last Documented On 3 10:53AM ; [facility] patient screened for future fall risk: documentation of any fall with injury in past year 1100F Last Documented On 3 10:53AM ; [facility] falls risk assessment not documented patient ref used 3288F Last Documented On 3 10:53AM ; [facility] review of medications documented 1160F Last Documented On 3 10:53AM ; [facility] assessment of suicide risk performed Last Documented On 3 10:53AM ; [facility] screening for adult depression: impressi on and score six Last Documented On 3 10:53AM ; [facility] standardized depression screening: posit jad for symptoms Last Documented On 3 10:53AM ; [facility] encouragement to exercise Last Documented On 3 10:53AM ; [facility] Clinical summary provided to patient Last Documented On 3 10:53AM ; [facility] SOAPP-R: total score 6 Last Documented On 3 10:53AM ; [facility] Surgical History Last Updated No Pacemaker 06/11/2021 Last Documented On 3 10:52AM ; [facility] Medical History Includes: Medical History addressed during this encounter Description Last Updated Surgical / procedural history L5-S1 Lumb ar Fusion 01/30/[address] Easton 02/03/2023 Last Documented On 3 11:08AM ; [facility] Denies a fear of falling. 07/08/2021 Last Documented On 3 10:52AM ; [facility] Has had no fall in the last 12 months. 0 07/08/2021 Last Documented On 3 10:52AM ; [facility] Currently wearing eyeglasses 06/11/2021 Last Documented On 3 10:52AM ; [facility] No Pain Pump 06/11/2021 Last Documented On 3 10:52AM ; [facility] No Spinal cord stimulator 06/11/2021 Last Documented On 3 10:52AM ; [facility] Physical therapy 06/11/2021 Last Documented On 3 10:52AM ; [facility] Please list all illnesses/co nditions you have been diagnosed with: Anxiety/panic attacks, high blood pressure, high colest 06/11/2021 Last Documented On 3 10:52AM ; [facility] Please list all surgeries: L eft Knee surgery for torn miniscus in 1998. hiatal hernia repair in October 2013 and again in June 2017 06/11/2021 Last Documented On 3 10:52AM ; [facility] Family History Includes: Family History addressed during this encounter Description Last Updated Family history of Arthritis 06/11/2021 Last Documented On 3 10:52AM ; [facility] Paternal history of reported family hist ory of seizures 06/11/2021 Last Documented On 3 10:52AM ; [facility] Review of Systems Includes: Review of [...] Active Last Documented On 3 3:05PM ; [facility] Meloxicam Allergy 06/11/2021 Active Last Documented On 3 3:05PM ; [facility] Lamotrigine Allergy 06/11/2021 Active Last Documented On 3 3:05PM ; [facility] LaMICtal Allergy Skin Rashes / Eruption of skin 2 Active Last Documented On 3 3:05PM ; [facility] Iodine Allergy Skin Rashes / Eruption of skin 2 Active Last Documented On 3 3:05PM ; [facility] Encounters Encounter Provider Location Date Check-In Time Check-Out Time Diagnosis TELEHEALTH JONELLE MOSES RN [facility]-FPA, SUIT MAKER-BC [facility] 02/04/20 23 10:50AM 11:33AM Chronic Pain Syndrome,Sacroili itis,Intervertebr al Disc Degeneration,Lumb ar Radiculopathy,Spo ndylosis Without Myelopathy Or Radiculopathy Lumbar Region,Dorsalgia Insurance Includes: Active Insurance Policies Plan Name Member ID Group # Subscriber Relationship Effect jad Dates 1 - [facility] [id number] JOHNATHON FLORES Se lf Clinical Notes Includes: Clinical Notes from this encounter * Progress note Date Encounter Last Documented by 02/03/2023 TELEHEALTH Last documented on 02/03/2023; 11:08 AM, JONELLE PATTERSONLP RN [facility]ITY [facility]-FPA, SUIT MAKER-BC; [facility] Active Problems & Conditions - [...] SI injection 08/10/22, L5-S1 TFESI 11/03/22 JOHNATHON LFORES is a 52 year old female. - [...] weeks/6 sessions of physical therapy over in [place]. She is unsure why her primary sent her to [place] as this is a very far drive [...] tests. Positive Kings's and thigh thrust bilaterally. Pearl's positive bilaterally. Tender lower facets and bilateral SI joints. Good ROM to lumbar spine with increased pain on extension. Gait: Not antalgic. No steppage gait. No Trendelenburg gait. No circumspected gait pattern. Heel walk normal. Toe walk normal. Tandem gait normal. Neuro: Awake. Alert. Oriented x3. DTR's intact in all extremities. DTR's equal in all extremities. No focal neurologic deficit. [id number] normal bilaterally. Psych: No apparent distress. Mood [...] been appropriate. This and review of the [facility] database shows no evidence of misuse, abuse, [...] notes, laboratory data, patient self-report questionnaires, and [place] prescription monitoring database entries. Significant social barriers exist to compliance resulting in limited prognosis. Practice Management Use of tobacco assessment performed and patient screened for future fall risk documentation of any fall with injury in past year Falls risk assessment not documented patient refused Review of medications documented; Standardized depression screening: positive for symptoms and for adult impression and score six; [41528] Established outpatient, medically appropriate H&P, moderate level [...] but may be subject to typographical or community chest officer errors. Verify all diagnoses, medications, dosages, and patient instructions with patient and/or the originator of this document. Telehealth Visit: Audio and video. Patient called from their home. Provider located at the [facility] Clinical Services office. Patient consents to bill [...]
== END 2024-06-24 18:31 | disposition home or self-care (01) ==
PROVIDERS: Emergency Provider Registered Nurse
DX: J40 Bronchitis, not specified as acute or chronic (principal); J02.9 Acute pharyngitis, unspecified; Z87.891 Personal history of nicotine dependence; I10 Essential (primary) hypertension; E28.2 Polycystic ovarian syndrome; J45.909 Unspecified asthma, uncomplicated; F41.9 Anxiety disorder, unspecified; F41.0 Panic disorder [episodic paroxysmal anxiety]; F32.A Depression, unspecified
CPT/HCPCS: 87081; 87880; 99213; G0463